=== PATIENT | female | born 1970 | race Two or more races ===

== ENCOUNTER → 2020-03-23 10:00 | Outpatient (BNV) | payer MEDICAID, OTHER, SELFPAY | PROVIDERS: PCP Nurse Practitioner; Referring Provider Nurse Practitioner; Visit Provider Internal Medicine Medical Oncology | DX: C50.911 Malignant neoplasm of unspecified site of right female breast (principal); Z79.811 Long term (current) use of aromatase inhibitors | CPT/HCPCS: 99202; 99204; 99212; 99213; 99214 ==

== ENCOUNTER → 2020-03-27 07:41 | Outpatient (REF) | payer MEDICAID, SELFPAY ==
--- NOTE | 2020-03-27 07:44 | CA_ITS ---
Transthoracic Echocardiogram Patient (Last, First, Middle): Zeynep Robles, Gender: Female Date of : 1970 Age: 49 Procedure Date: 03/27/2020 Procedure Type: Transthoracic Echocardiogram Location: OP Height: 167.64 cm Weight: 79.38 kg BSA: 1.89 m2 Heart Rate: bpm BP: 128 / 70 mmHg Cathode Washer: Referring MD: Sylvain Boyer MD Symptoms: pre chemotherapy Study Quality: Good ECG Rhythm: Sinus Conclusions: - The left ventricular systolic function is normal. The visually estimated ejection fraction is between 55-60%. Findings Left Ventricle Normal left ventricular cavity size. There is normal left ventricular wall thickness. The left ventricular systolic function is normal. The visually estimated ejection fraction is between 55-60%. The calculated ejection fraction is 58% by biplane method. There is no evidence of regional wall motion abnormalities. Diastolic function is normal for age. Left ventricular global endocardial peak longitudinal strain -14.2% (slightly diminished). Could be because of suboptimal endocardial tracking. Prior Study Comparison No prior study available for comparison. Measurements 2D Linear Measurements LVIDd: 4.65 3.9-5.3/4.2-5.9 cm LVIDd Index: 2.46 2.4-3.2/2.2-3.1 cm/m2 LVIDs: 2.82 2.0-3.6 cm 2D Systolic Function EF 4C: 54.30 >55% EF 2C: 59.50 >55% EF BiP: 58.30 >55% Mitral Valve MV Pk E: 0.46 MV PK A: 0.56 MV Decel Time: 154.00 E/A: 0.80 E'Lateral: 5.22 E'Medial: 6.53 E/E' Med: 7.00 E/E' Lat: 8.80 Diastolic Function MV Pk E: 0.46 MV Pk A: 0.56 E/A: 0.80 E'Medial: 6.53 E/E' Med: 7.00 E' Laterial: 5.22 E/E' Lat: 8.80 Updated in Other Vendor System with Status of Final Emmett Hoang MD electronically signed on 03/27/2020 9:53:08 AM with status of Final
== END ==
LOC: HO.CARD 07:41
PROVIDERS: PCP Nurse Practitioner; Visit Provider Internal Medicine Medical Oncology
DX: C50.919 Malignant neoplasm of unspecified site of unspecified female breast (principal)
CPT/HCPCS: 93308; 93356

== ENCOUNTER → 2020-07-05 12:43 | Outpatient (REF) | payer MEDICAID, SELFPAY ==
--- NOTE | 2020-07-05 12:51 | CA_ITS ---
Transthoracic Echocardiogram Patient (Last, First, Middle): Zeynep Robles, Gender: Female Date of : 1970 Age: 49 Procedure Date: 07/05/2020 Procedure Type: Transthoracic Echocardiogram Location: OP Height: 167.64 cm Weight: 74.84 kg BSA: 1.84 m2 Heart Rate: bpm BP: 116 / 56 mmHg Reducer: Referring MD: Sylvain Boyer MD Symptoms: chemotherapy , assess for chemotherapy toxicity Study Quality: Good ECG Rhythm: Sinus Conclusions: - The left ventricular systolic function is normal. The visually estimated ejection fraction is between 55-60%. Findings Left Ventricle Normal left ventricular cavity size. There is normal left ventricular wall thickness. The left ventricular systolic function is normal. The visually estimated ejection fraction is between 55-60%. There is no evidence of regional wall motion abnormalities. LV GLS -15.1%, but there is slight tracking error and hence, likely higher than this. Right Ventricle Normal right ventricular cavity size and systolic function. Prior Study Comparison No significant change compared to prior study dated: 03/27/2020. Measurements 2D Linear Measurements IVSd: 1.04 0.6-0.9/0.6-1.0 cm LVIDd: 4.89 3.9-5.3/4.2-5.9 cm LVIDd Index: 2.66 2.4-3.2/2.2-3.1 cm/m2 LVIDs: 3.08 2.0-3.6 cm LVPWd: 1.04 0.7-1.1 cm LV Mass: 230.55 67-162/88-224 g LV Mass Index: 125.30 43-95/49-115 g/m2 Updated in Other Vendor System with Status of Final Emmett Hoang MD electronically signed on 07/06/2020 12:05:05 PM with status of Final
== END ==
LOC: HO.CARD 12:43
PROVIDERS: Visit Provider Internal Medicine Medical Oncology
DX: C50.919 Malignant neoplasm of unspecified site of unspecified female breast (principal)
CPT/HCPCS: 93308; 93356

== ENCOUNTER → 2020-09-22 12:46 | Outpatient (REF) | payer MEDICAID, SELFPAY ==
--- NOTE | 2020-09-22 12:51 | CA_ITS ---
Transthoracic Echocardiogram Patient (Last, First, Middle): Zeynep Robles, Gender: Female Date of : 1970 Age: 49 Procedure Date: 09/22/2020 Procedure Type: Transthoracic Echocardiogram Location: OP Height: 167.64 cm Weight: 79.38 kg BSA: 1.89 m2 Heart Rate: bpm BP: 126 / 90 mmHg Water And Fire Technician: PADMINI Referring MD: Sylvain Boyer MD Cook Fry: Guicho Samuel MD Symptoms: Patient on Herceptin. Follow ejection fraction. Study Quality: Fair ECG Rhythm: Sinus Conclusions: - 1. Low normal LV systolic function with LVEF of 50-55% with reduced global longitudinal strain on this study Findings Left Ventricle Normal left ventricular cavity size. There is normal left ventricular wall thickness. The left ventricular systolic function is low normal. The visually estimated ejection fraction is between 50-55%. Spectral Doppler is indicative of an impaired relaxation filling pattern. E/E prime ratio is between 8 and 15 consistent with indeterminate filling pressures. Measured global longitudinal strain id -12%, lower than measured in the last study Prior Study Comparison Changes noted compared to prior study dated: 07/05/2020. LV systolic function is marginally depressed. Measurements 2D Linear Measurements IVSd: 0.85 0.6-0.9/0.6-1.0 cm LVIDd: 4.37 3.9-5.3/4.2-5.9 cm LVIDd Index: 2.31 2.4-3.2/2.2-3.1 cm/m2 LVIDs: 3.25 2.0-3.6 cm LVPWd: 1.00 0.7-1.1 cm LV Mass: 162.99 67-162/88-224 g LV Mass Index: 86.24 43-95/49-115 g/m2 2D Systolic Function EF 4C: 54.40 >55% EF 2C: 48.40 >55% EF BiP: 51.90 >55% Mitral Valve MV Pk E: 0.55 MV PK A: 0.53 MV Decel Time: 257.00 E/A: 1.00 E'Lateral: 6.20 E'Medial: 5.55 E/E' Med: 10.00 E/E' Lat: 8.90 PHT: 75.00 MVA PHT: 2.93 Decel Spencer: 2.15 Diastolic Function MV Pk E: 0.55 MV Pk A: 0.53 E/A: 1.00 E'Medial: 5.55 E/E' Med: 10.00 E' Laterial: 6.20 E/E' Lat: 8.90 Tricuspid Valve TR Pk Karson: 2.04 TR Pk Grad: 17.00 RA Press: 3.00 RVSP: 20.00 Updated in Other Vendor System with Status of Final Guicho Samuel MD electronically signed on 09/23/2020 4:00:45 PM with status of Final
== END ==
LOC: HO.CARD 12:46
PROVIDERS: Visit Provider Internal Medicine Medical Oncology
DX: C50.919 Malignant neoplasm of unspecified site of unspecified female breast (principal); Z79.899 Other long term (current) drug therapy
CPT/HCPCS: 93308

== ENCOUNTER → 2020-10-12 09:14 | Outpatient (BNVA) | payer MEDICAID, SELFPAY | PROVIDERS: PCP Nurse Practitioner; Referring Provider Nurse Practitioner; Visit Provider Internal Medicine | DX: I25.10 Atherosclerotic heart disease of native coronary artery without angina pectoris (principal); I25.2 Old myocardial infarction; I63.9 Cerebral infarction, unspecified | CPT/HCPCS: 93005; 99202 ==

== ENCOUNTER 2020-11-06 14:14 | Outpatient (REF) | payer MEDICAID, SELFPAY ==
--- NOTE | ~2020-11-06 | US_ITS ---
EXAMINATION: US EXTRACRANIAL CAROTID DUPLEX, BILATERAL CLINICAL INFORMATION: Carotid stenosis COMPARISON: None TECHNIQUE: Real-time ultrasound and Doppler techniques (integrating B-mode 2-D vascular images, Doppler spectral analysis and color-flow Doppler imaging) were utilized to interrogate the extracranial carotid arteries, the vertebral arteries and proximal subclavian arteries bilaterally. The degree of stenosis is determined by criteria similar to NASCET. FINDINGS: Right Side: 1. There is no atherosclerotic plaque seen in the bifurcation/proximal ICA region. 2. The common carotid artery PSV proximally is 95 cm/s and distally 82 cm/s. 3. The proximal internal carotid artery velocities are 79 cm/s systolic and 27 cm/s diastolic. 4. The proximal external carotid artery PSV is 95 cm/s. 5. The vertebral artery shows antegrade flow. 6. The subclavian artery waveforms are normal. Left Side: 1. There is no atherosclerotic plaque seen in the bifurcation/proximal ICA region. 2. The common carotid artery PSV proximally is 106 cm/s and distally 76 cm/s. 3. The proximal internal carotid artery velocities are 69 cm/s systolic and 19 cm/s diastolic. 4. The proximal external carotid artery PSV is 73 cm/s. 5. The vertebral artery shows antegrade flow. 6. The subclavian artery waveforms are normal. US/US carotid duplex BI IMPRESSION: 1. RIGHT: Normal exam. 2. LEFT: Normal exam.
== END 2020-11-06 14:15 | disposition home or self-care (01) ==
LOC: HO.US 14:14
PROVIDERS: Visit Provider Internal Medicine
DX: I65.23 Occlusion and stenosis of bilateral carotid arteries (principal); Z86.73 Personal history of transient ischemic attack (TIA), and cerebral infarction without residual deficits
CPT/HCPCS: 93880

== ENCOUNTER 2021-01-08 18:28 | Emergency (ER) | payer MEDICAID, SELFPAY ==
[2021-01-08 20:11] VITALS: BP 150/79; RESP 16; TEMP 36.9; O2SAT 98; BMI 28.2
--- NOTE | 2021-01-08 21:34 | ED.DENTAL ---
HPI - Dental/Oral General Chief complaint: Dental/Oral Stated complaint: mouth tooth pain Time Seen by Provider: 01/08/21 21:33 Related Data Home Medications Medication Instructions Recorded Confirmed albuterol sulfate 90 mcg/actuation 2 puff INHALATION Q6H PRN 03/20/20 01/02/21 aerosol inhaler (Ventolin HFA) cholecalciferol (vitamin D3) 25 25 mcg PO DAILY 03/20/20 01/02/21 mcg (1,000 unit) tablet epinephrine 0.3 mg/0.3 mL 0.3 mg IM NEEDED PRN 03/20/20 01/02/21 injection, auto-injector gabapentin 300 mg capsule 1 cap PO BEDTIME PRN 03/20/20 01/02/21 ipratropium bromide 18 2 puff INHALATION BID PRN 03/20/20 01/02/21 mcg/actuation aerosol inhaler loratadine 10 mg tablet 1 tab PO DAILY 03/20/20 01/02/21 metformin 500 mg tablet 1 tab PO BID 03/20/20 01/02/21 montelukast 10 mg tablet 1 tab PO BEDTIME 03/20/20 01/02/21 nitroglycerin 0.4 mg sublingual 1 tab SUBLINGUAL NEEDED 03/20/20 01/02/21 tablet omeprazole 20 mg capsule,delayed 1 cap PO DAILY 03/20/20 01/02/21 release ondansetron 8 mg disintegrating 8 mg PO Q12H 03/20/20 01/02/21 tablet dulaglutide 0.75 mg/0.5 mL 0.75 mg SUBCUT QWEEK 10/12/20 01/02/21 subcutaneous pen injector (Trulicity) Previous Rx's Medication Instructions Recorded anastrozole 1 mg tablet 1 mg PO DAILY #90 tab 01/02/21 clindamycin HCl 300 mg capsule 300 mg PO BID 10 Days #20 cap 01/08/21 oxycodone 5 mg tablet 5 mg PO Q8H PRN 3 Days #10 tab 01/08/21 Allergies Allergy/AdvReac Type Severity Reaction Status Date / Time acetaminophen Allergy Difficulty Verified 01/08/21 20:48 [From Tylenol PM] Breathing aspirin Allergy Itching Verified 01/08/21 20:48 bee pollen [bee stings] Allergy Anaphylaxis Verified 01/08/21 20:48 codeine Allergy Swelling Verified 01/08/21 20:48 diphenhydramine Allergy Difficulty Verified 01/08/21 20:48 [From Tylenol PM] Breathing latex Allergy Itching Verified 01/08/21 20:48 Penicillins Allergy Rash Verified 01/08/21 20:48 [facility] Past Medical History Medical History (Updated 01/08/21 @ 21:35 by Pj Rice NP) Asthma Breast cancer History of stroke Hyperlipidemia Myocardial infarction Nonalcoholic fatty liver disease Ovarian cyst Type 2 diabetes mellitus with diabetic polyneuropathy, with long-term current use of insulin Surgical History H/O right mastectomy History of delivery Hx of tonsillectomy Family History Family History Family/Other Breast cancer Maternal Aunt Breast cancer Maternal Grandmother Breast cancer Paternal Grandmother Breast cancer Social History Social History Alcohol intake: former Patient Tobacco Use Status: Never used Tobacco Advance Directives: No Physical Exam Vital Signs: Vital Signs: Last Vital Signs Temp 98.4 F 01/08/21 20:11 Resp 16 01/08/21 20:11 BP 150/79 H 01/08/21 20:11 Pulse Ox 98 01/08/21 20:11 Body Mass Index 28.2 Discharge Plan Discharge Clinical Impression: Dental caries Patient Disposition: Home, Self-Care Instructions: Toothache (ED) Additional Instructions: Soft foods Chewing a good-sized Take antibiotics as prescribed Return if any concerns or worsening symptoms Otherwise schedule follow-up with her dentist in the next 3-7 days Thank you Prescriptions: New clindamycin HCl 300 mg capsule 300 mg PO BID 10 Days Qty: 20 RF: 0 oxycodone 5 mg tablet 5 mg PO Q8H PRN (Reason: pain) 3 Days Qty: 10 RF: 0 No Action metformin 500 mg tablet 1 tab PO BID RF: 0 Atrovent 18 mcg/actuation Aerosol 2 puff INHALATION BID PRN (Reason: Wheezing) RF: 0 ondansetron 8 mg Tablet,Disintegrating 8 mg PO Q12H RF: 0 nitroglycerin 0.4 mg tablet, sublingual 1 tab sublingual NEEDED RF: 0 gabapentin 300 mg capsule 1 cap PO BEDTIME PRN (Reason: Pain) RF: 0 omeprazole 20 mg capsule,delayed release(DR/EC) 1 cap PO DAILY RF: 0 montelukast 10 mg tablet 1 tab PO BEDTIME RF: 0 epinephrine 0.3 mg/0.3 mL auto-injector 0.3 mg IM NEEDED PRN (Reason: Allergic Reaction) RF: 0 albuterol sulfate [Ventolin HFA] 90 mcg/actuation Hfa Aerosol Inhaler 2 puff INHALATION Q6H PRN (Reason: Wheezing) RF: 0 loratadine 10 mg tablet 1 tab PO DAILY RF: 0 cholecalciferol (vitamin D3) 25 mcg (1,000 unit) Tablet 25 mcg PO DAILY RF: 0 anastrozole 1 mg Tablet 1 mg PO DAILY Qty: 90 RF: 4 Trulicity 0.75 mg/0.5 mL pen injector 0.75 mg subcut QWEEK RF: 0 Referrals: ED Physician,Generic [Emergency Provider] - 2 days (Dentist)
[2021-01-08] MEDS: oxyCODONE HCl Immed Release 5 MG TABLET 10 MG PO (22:05)
== END 2021-01-08 22:10 | disposition home or self-care (01) ==
PROVIDERS: Emergency Provider Emergency Medicine; PCP Nurse Practitioner
DX: K02.9 Dental caries, unspecified (principal); Z79.899 Other long term (current) drug therapy
CPT/HCPCS: 99283; 99284

== ENCOUNTER 2021-01-19 09:43 | Day surgery (SDC) | payer MEDICAID, SELFPAY ==
--- NOTE | ~2021-01-19 | IR_ITS ---
EXAMINATION: IR LEFT PORT-A-CATH REMOVAL CLINICAL INFORMATION: No Port-A-Cath needed. Done with chemotherapy. COMPARISON: None. TECHNIQUE: Following explaining left Port-A-Cath removal procedure, benefits and risks, a written consent was obtained. Patient was placed supine on fluoroscopy table and the axis area around the left anterior chest wall was cleaned and drape. 1% lidocaine was injected along the palpable Port-A-Cath chamber. A small skin incision was performed and the Port-A-Cath was dissected. Subcutaneous sutures stabilizing the Port-A-Cath were dissected but none of the sutures were visualized. Blunt dissection was performed, the hardware was loosened and the the catheter was removed in its entire length. Preprocedure and postprocedure images were obtained and revealed entire removal of catheter. Complete hemostasis was achieved at the puncture site. The skin incision was sutured with absorbable sutures with sterile dressing applied postprocedure. Patient tolerated the procedure extremely well. No conscious sedation was utilized. IR/IR cvc remove tunnel w prt/legal associate FINDINGS/IMPRESSION: Successful removal of portacatheter in its entirety. Chemotherapy was done and Port-A-Cath was not needed anymore.
[2021-01-19 08:07] VITALS: BMI 28.2
[2021-01-19 09:55] VITALS: BP 143/87; PULSE 90; RESP 18; TEMP 36.1; O2SAT 97
[2021-01-19 09:57] LABS: Glucose, Whole Blood 135 mg/dL (60-115)
--- NOTE | 2021-01-19 10:18 | PC.NURSE ---
pt states she doesnot take plavix
[2021-01-19 10:36] LABS: INTERNATIONAL NORM RATIO 1.1 (0.9-1.1)
[2021-01-19 10:39] LABS: Partial Thromboplastin Time 34.7 SEC (24.1-38.0)
[2021-01-19] MEDS: Lidocaine HCl 1 % MPF 5 ML VIAL SUBCUT (12:04)
[2021-01-19 12:10] VITALS: BP 131/56; PULSE 86; RESP 16; TEMP 36.6; O2SAT 96
[2021-01-19 12:25] VITALS: BP 126/70; PULSE 89; RESP 16; O2SAT 95
[2021-01-19 12:40] VITALS: BP 125/63; PULSE 85; RESP 16; O2SAT 97
[2021-01-19 12:55] VITALS: BP 125/63; PULSE 84; RESP 16; O2SAT 98
[2021-01-19 13:07] VITALS: BP 120/68; PULSE 94; RESP 18; O2SAT 96
== END 2021-01-19 13:28 | disposition home or self-care (01) ==
PROVIDERS: Radiology Diagnostic Radiology; PCP Nurse Practitioner; Visit Provider Radiology Diagnostic Radiology
PROC: (CPT 36590; principal; 2021-01-19 10:30)
DX: Z45.2 Encounter for adjustment and management of vascular access device (principal); C50.411 Malignant neoplasm of upper-outer quadrant of right female breast; Z17.0 Estrogen receptor positive status [ER+]; Z79.811 Long term (current) use of aromatase inhibitors; E11.21 Type 2 diabetes mellitus with diabetic nephropathy; Z79.4 Long term (current) use of insulin
CPT/HCPCS: 36415; 36590; 82947; 85610; 85730; 99152; J2250; J3010

== ENCOUNTER 2024-07-23 13:23 | Emergency (ER) | payer MEDICAID, SELFPAY ==
--- NOTE | ~2024-07-23 | US_ITS ---
CLINICAL HISTORY: hx breast CA. r o abscess. palpable mass. hot ULTRASOUND RIGHT BREAST Comparison: None Findings: Targeted assessment of the palpable area of concern in the right breast was performed. Imaging was performed in and around the nipple. The nipple-areolar complex appears prominent. Multiple irregular echogenic foci are identified with increased color flow. No measurable fluid collection is identified. Impression: 1. No sonographic evidence for a retroareolar or periareolar abscess. 2. Recommend clinical correlation for a retracted versus inverted nipple. 3. Multiple irregular echogenic foci involving the nipple-areolar complex is suggestive of multiple calcifications. Further evaluation with diagnostic mammogram is recommended. BI-RADS category 0: Incomplete -need additional imaging evaluation This document has been electronically signed by: Bethany Hinton DO on 07/23/2024 17:37:46
--- NOTE | 2024-07-23 13:47 | ED.GENADULT ---
HPI - General Adult General Chief complaint: General Medical Stated complaint: swollen breast Time Seen by Provider: 07/23/24 16:17 Source: patient, RN notes reviewed and old records reviewed Mode of arrival: ambulatory History of Present Illness ED Provider: Eunice Valentine PA-C HPI narrative: 53-year-old female with a past medical history of diabetes, asthma, [place], NAFLD, HLD, Breast CA s/p simple mastectomy on Arimidex, presenting to the ED complaining of right breast swelling, palpable lump, tenderness, and warmth x3 days. Reports firm lump to nipple. States she is supposed to be on Anastrozole x5 years and have follow-up in March however has not yet followed up. Denies active drainage, fever, chills, trauma Related Data Home Medications ?Medication ?Instructions ?Recorded ?Confirmed albuterol sulfate 90 mcg/actuation 2 puff inhalation Q6H PRN Wheezing 03/20/20 01/04/22 aerosol inhaler (Ventolin HFA) cholecalciferol (vitamin D3) 25 25 mcg PO DAILY 03/20/20 01/04/22 mcg (1,000 unit) tablet epinephrine 0.3 mg/0.3 mL 0.3 mg IM NEEDED PRN Allergic 03/20/20 01/04/22 injection, auto-injector Reaction gabapentin 300 mg capsule 1 cap PO BEDTIME PRN Pain 03/20/20 01/04/22 ipratropium bromide 18 2 puff inhalation BID PRN Wheezing 03/20/20 01/04/22 mcg/actuation aerosol inhaler loratadine 10 mg tablet 1 tab PO DAILY allergies 03/20/20 01/04/22 metformin 500 mg tablet 1 tab PO BID 03/20/20 01/04/22 montelukast 10 mg tablet 1 tab PO BEDTIME allergies 03/20/20 01/04/22 nitroglycerin 0.4 mg sublingual 1 tab sublingual NEEDED angina 03/20/20 01/04/22 tablet omeprazole 20 mg capsule,delayed 1 cap PO DAILY 03/20/20 01/04/22 release ondansetron 8 mg disintegrating 8 mg PO Q12H 03/20/20 01/04/22 tablet dulaglutide 0.75 mg/0.5 mL 0.75 mg subcut QWEEK 10/12/20 01/04/22 subcutaneous pen injector (Trulicity) insulin glargine 100 unit/mL (3 10 unit subcut QPM 01/19/21 01/04/22 mL) subcutaneous pen (Lantus Solostar U-100 Insulin) pantoprazole 20 mg tablet,delayed 1 tab PO QAM 01/19/21 01/04/22 release Previous Rx's ?Medication ?Instructions ?Recorded clindamycin HCl 300 mg capsule 300 mg PO BID 10 days #20 caps 01/08/21 oxycodone 5 mg tablet 5 mg PO Q8H PRN pain 3 days #10 01/08/21 tabs anastrozole 1 mg tablet 1 mg PO DAILY #90 tabs 01/17/22 Allergies Allergy/AdvReac Type Severity Reaction Status Date / Time acetaminophen Allergy Difficulty Verified 07/23/24 13:59 [From Tylenol PM] Breathing aspirin Allergy Itching Verified 07/23/24 13:59 bee pollen [bee stings] Allergy Anaphylaxis Verified 07/23/24 13:59 codeine Allergy Swelling Verified 07/23/24 13:59 diphenhydramine Allergy Difficulty Verified 07/23/24 13:59 [From Tylenol PM] Breathing latex Allergy Itching Verified 07/23/24 13:59 Penicillins Allergy Rash Verified 07/23/24 13:59 Review of Systems Review of Systems: Yes all other systems are reviewed and are negative Constitutional: Constitutional: Reports as per [facility] Past Medical History Attestation statement: The following information was validated with the patient. Source: old records reviewed Medical History Breast cancer Type 2 diabetes mellitus with diabetic polyneuropathy, with long-term current use of insulin Asthma Myocardial infarction Nonalcoholic fatty liver disease Hyperlipidemia Ovarian cyst History of stroke Surgical History Hx of tonsillectomy History of delivery H/O right mastectomy Family History Family History Family/Other Breast cancer Maternal Aunt Breast cancer Maternal Grandmother Breast cancer Paternal Grandmother Breast cancer Social History Social History Alcohol intake: former Patient Tobacco Use Status: Never used Tobacco Smoked in Last 30 Days: No Use of substances other than those prescribed or required for medical reasons: No Advance Directives: No Advance Directives Information Provided: Yes Physical Exam ED Vital Signs: Vital Signs - 24 hr 07/23/24 13:57 07/23/24 16:20 Temperature 98.6 F 98.9 F Pulse Rate 84 83 Respiratory Rate 16 14 Blood Pressure 157/88 H 155/89 H Pulse Oximetry 98 97 Oxygen Delivery Method Room Air Room Air BMI result Body Mass Index 27.3 Const General: cooperative, healthy appearing and no acute distress Orientation/consciousness: patient oriented x3 Limitations: no limitations HENMT Head: Yes normal to inspection and Yes atraumatic Ears: hearing grossly normal bilaterally General nose exam: Normal external nose present Face and sinus: Yes normal facial exam Eyes General: appearance normal, both eyes and all related structures EOM: EOMs intact bilaterally Neck Neck: Yes normal visual inspection and Yes no meningeal signs Chest Other: Right breast s/p simple mastectomy and breast augmentation. No skin erythema or dimpling. Mild swelling appreciated with firm lump at 12 o'clock position on nipple. Mild tenderness to outer quadrants without focal fluctuance / induration. Resp Effort & Inspection: normal respiratory effort and no respiratory distress Cardio Rate: regular rate Skin Rashes: no rashes Wounds: no wounds Neuro General: patient oriented x3, tone normal and no meningeal signs Cranial nerves: Yes CN's II-XII intact bilaterally Gait exam (Neuro): Normal gait present Extrem General: Yes normal to inspection Course Course Course Narrative: This is an RME performed by Debby Pearce CNP: Additional HPI, ROS, PE not included below will be deferred to primary provider. Patient is a 53-year-old female past medical history of right breast CA; Saw [facility] in 2021- neoadjuvant TCH, simple mastectomy, on Arimidex. Presents today for evaluation of breast swelling over the past 3 days tenderness upon palpation, and palpable firm lump surrounding the nipple. Reports that she remains on anastrozole. She is most recently following with [facility] but has not seen them in a little over a year. Plan: Serum labs, placed in waiting room pending bed availability for further examination -1701-- no leukocytosis. Labs otherwise reassuring 1741--US breast RT limited Impression: 1. No sonographic evidence for a retroareolar or periareolar abscess. 2. Recommend clinical correlation for a retracted versus inverted nipple. 3. Multiple irregular echogenic foci involving the nipple-areolar complex is suggestive of multiple calcifications. Further evaluation with diagnostic mammogram is recommended. BI-RADS category 0: Incomplete -need additional imaging evaluation > ultrasound results discussed with patient with spanish interpreter/translator. Patient is supplied with copy of ultrasound results. Recommended close outpatient follow-up and needed mammogram. Discussed possible malignancy and multiple calcifications. Results discussed with patient including worrisome signs and symptoms and strict return precautions, and when to return to the emergency department. They verbalized understanding and feel safe for discharge at this time. Medical Decision Making Medical Decision Making MDM Narrative: 53-year-old female with a past medical history of diabetes, asthma, [place], NAFLD, HLD, Breast CA s/p simple mastectomy on Arimidex, presenting to the ED complaining of right breast swelling, palpable lump, tenderness, and warmth x3 days. On exam vital signs stable, NAD, nontoxic appearing, physical exam as noted above. Concern for underlying abscess vs cyst vs malignancy/breast CA recurrence. No evidence of cellulitis at this time. Plan: Labs, ultrasound Please refer to course for remaining clinical decision making, interpretation of labs/imaging results, and discussions with consultants and/or family members. Differential Diagnosis Differential Diagnoses: The differential diagnosis associated with the presentation includes As above Admission/Observation Consideration of admission/observation: Escalation of care including admission/observation considered Lab Data [facility] Lab Attestation statement: I reviewed the patient's lab results. 07/23/24 14:04 07/23/24 14:04 Labs: Lab Results 07/23/24 Range/Units 14:04 WBC 8.4 (4.8-10.8) X10*3/uL RBC 5.14 (4.20-5.50) X10*6/uL Hgb 14.4 (12.0-16.0) g/dl Hct 41.2 (37.0-47.0) % MCV 80.2 (80.0-98.0) fL MCH 28.0 (27.0-33.0) pg MCHC 35.0 (31.0-35.0) g/dl RDW 14.4 (11.0-16.0) % Plt Count 230 (160-400) X10*3/uL MPV 11.6 (9.4-12.3) fL Immature Gran % (Auto) 0.2 (0.0-0.4) % Neut % (Auto) 55.8 (45-73) % Lymph % (Auto) 38.6 (20-40) % [place] % (Auto) 4.7 (2-11) % Eos % (Auto) 0.6 (0-4) % Baso % (Auto) 0.1 (0-2) % Lymph # (Auto) 3.2 (1.2-4.9) X10*3/uL [place] # (Auto) 0.4 (0.1-1.2) X10*3/uL Eos # (Auto) 0.1 (0.0-0.4) X10*3/uL Baso # (Auto) 0.0 (0.0-0.2) X10*3/uL Abs Immat Gran (auto) 0.02 (0.00-0.03) X10*3/uL Absolute Neuts (auto) 4.7 (2.0-8.3) x10*3/uL Absolute Nucleated RBC 0.000 (0.0-0.012) X10*3/uL Nucleated RBC % (auto) 0.0 (0.0-0.2) /100WBC Sodium 142 (135-145) mmol/L Potassium 3.6 (3.3-5.1) mmol/L Chloride 106 (96-108) mmol/L Carbon Dioxide 29 (22-29) mmol/L Anion Gap 11 L (12-20) BUN 11 (9-16) mg/dL Creatinine 0.76 (0.5-1.4) mg/dL Estim Creat Clear Calc 88.4 Estimated GFR > 60 Random Glucose 122 H (60-115) mg/dL Calcium 9.8 (8.4-10.2) mg/dL Total Bilirubin 0.5 (0.0-1.0) mg/dL AST 26 (5-31) U/L ALT 35 H (0-31) U/L Alkaline Phosphatase 89 (39-117) U/L Total Protein 7.9 (6.5-8.0) g/dL Albumin 4.3 (3.5-5.0) g/dL Independent Interpretation I performed an independent interpretation of an: Ultrasound Radiology Impression Discussion of test interpretation with radiology: I have reviewed the radiologist's reading. External Record Review External record reviewed: Inpatient record, Office record, Outpatient record, Prior outpatient labs, Prior outpatient radiology, Primary care record and Outside ED record Tests considered The following testing was considered but not selected: As above Prescription Management I considered prescription management with: Pain Medication and Antibiotic Chronic Conditions Patient?s care impacted by: Cancer Social Determinants Patient?s care significantly limited by Social Determinants of Health including: Other Social Determinant of Health Discharge Plan Discharge Clinical Impression: Breast lump Prescriptions: No Action metformin 500 mg tablet 1 tab PO BID Atrovent 18 mcg/actuation Aerosol 2 puff INHALATION BID PRN (Reason: Wheezing) ondansetron 8 mg Tablet,Disintegrating 8 mg PO Q12H nitroglycerin 0.4 mg tablet, sublingual 1 tab sublingual NEEDED gabapentin 300 mg capsule 1 cap PO BEDTIME PRN (Reason: Pain) omeprazole 20 mg capsule,delayed release(DR/EC) 1 cap PO DAILY montelukast 10 mg tablet 1 tab PO BEDTIME epinephrine 0.3 mg/0.3 mL auto-injector 0.3 mg IM NEEDED PRN (Reason: Allergic Reaction) albuterol sulfate [Ventolin HFA] 90 mcg/actuation Hfa Aerosol Inhaler 2 puff INHALATION Q6H PRN (Reason: Wheezing) loratadine 10 mg tablet 1 tab PO DAILY cholecalciferol (vitamin D3) 25 mcg (1,000 unit) Tablet 25 mcg PO DAILY anastrozole 1 mg Tablet 1 mg PO DAILY Qty: 90 4RF pantoprazole 20 mg tablet,delayed release (DR/EC) 1 tab PO QAM insulin glargine [Lantus Solostar U-100 Insulin] 100 unit/mL (3 mL) insulin pen 10 unit subcut QPM clindamycin HCl 300 mg capsule 300 mg PO BID 10 Days Qty: 20 0RF oxycodone 5 mg tablet 5 mg PO Q8H PRN (Reason: pain) 3 Days Qty: 10 0RF Trulicity 0.75 mg/0.5 mL pen injector 0.75 mg subcut QWEEK Print Language: [place]
[2024-07-23 13:57] VITALS: BP 157/88; PULSE 84; RESP 16; TEMP 37; O2SAT 98; BMI 27.3
[2024-07-23 14:13] LABS: Basophils Percent Auto 0.1 % (0-2); Eosinophils Absolute Auto 0.1 X10*3/uL (0.0-0.4); Eosinophils Percent Auto 0.6 % (0-4); Hematocrit 41.2 % (37.0-47.0); Hemoglobin 14.4 g/dl (12.0-16.0); Imm Gran Abs Auto 0.02 X10*3/uL (0.00-0.03); Imm Gran Pct Auto 0.2 % (0.0-0.4); Lymphocytes Absolute Auto 3.2 X10*3/uL (1.2-4.9); Lymphocytes Percent Auto 38.6 % (20-40); MANUAL DIFF FLAG NO; Mean Corpuscular Volume 80.2 fL (80.0-98.0); Mean Platelet Volume 11.6 fL (9.4-12.3); Monocytes Absolute Auto 0.4 X10*3/uL (0.1-1.2); Monocytes Percent Auto 4.7 % (2-11); Neutrophils Absolute Auto 4.7 x10*3/uL (2.0-8.3); Neutrophils Percent Auto 55.8 % (45-73); Platelet Count 230 X10*3/uL (160-400); Red Blood Count 5.14 X10*6/uL (4.20-5.50); Red Cell Distribution Width 14.4 % (11.0-16.0); White Blood Count 8.4 X10*3/uL (4.8-10.8)
[2024-07-23 14:32] LABS: Alanine Aminotransferase 35 U/L (0-31); Albumin Level 4.3 g/dL (3.5-5.0); Alkaline Phosphatase 89 U/L (39-117); Anion Gap 11 (12-20); Aspartate Amino Transferase 26 U/L (5-31); Bilirubin Total 0.5 mg/dL (0.0-1.0); Blood Urea Nitrogen 11 mg/dL (9-16); Calcium 9.8 mg/dL (8.4-10.2); Carbon Dioxide 29 mmol/L (22-29); Chloride 106 mmol/L (96-108); Creatinine Clr Calc Pharmacy 88.4; Estimated Glomerular Filt Rate > 60; Glucose Random 122 mg/dL (60-115); Potassium 3.6 mmol/L (3.3-5.1); Sodium 142 mmol/L (135-145); Total Protein 7.9 g/dL (6.5-8.0)
--- OUTSIDE RECORDS SUMMARY | 2024-07-23 16:17 | XMS_ITS | Patient Health Record ---
Author Organization [facility] Address [address] [place] [address] Care Team Providers Care Surety Bond Agent Name Role Phone Jevon Macdonald MD Primary Care Provider KYLEE Cho Unavailable Allergies Allergen (clinical drug ingredient) Drug/Non Drug Allergy documented on EMR Reaction Allergy Type Onset Date Status aspirin aspirin (uncoded) Unknown Allergy Ac tive codeine codine (uncoded) Unknown Allergy Act mook penecilin (uncoded) Unknown Allergy Active Reason For Referral No Information Medications Medication SIG (Take, Route, Frequency, Duration) Notes Start Date End Date Status Bilateral thigh high compression stockings 20-30 mmHg as directed 04/02/2018 Active Lipitor 10 MG 1 tablet Orally Once a day Active Social History Tobacco Use: Social History Observation Description Date Details (start date - stop date) Current Smoker NA - NA Tobacco Use/Smoking Question Answer Notes Are you a current smoker How often do you smoke cigarettes? some days, bu t not every day How many cigarettes a day do you smoke? 5 or les s Are you interested in quitting? 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) Cerebral infarction due to embolism of unspecified carotid artery (I63.139) Active confirmed Problem Varicose veins of bilateral lower limbs (880695688022366 06) Varicose veins of bilateral lower extremities with other complications (I83.893) Active confirmed Plan Of Treatment Pending Test Test Name Order Date Electrocardiogram (EKG) 03/04/2018 ECHOCARDIOGRAM WITH DOPPLER AND COLOR FL OW, TRANSTHORACIC CO 03/04/2018 PHARMACOLOGIC NUCLEAR STRESS TEST WITH M YOCARDIAL PERFUSION 03/04/2018 CAROTID DUPLEX SCAN, BILATERAL 8 DOPPLER, REFLUX VENOUS 04/02/2018 Stress Test 03/12/2018 Insurance Providers Payer Name Payer Address Payer Phone Subscriber Number Group Number Insured Name Patient Relationship to Insured Coverage Start Date Coverage End Date [employer] Medicaid [address] [facility] [place] [id number] [id number] Zeynep Martini Self - patient is the insured Medical (General) History Surgical History Surgery Date(Month/Year) four c section
--- OUTSIDE RECORDS SUMMARY | 2024-07-23 16:17 | XMS_ITS | Clinical Summary ---
Author Organization [facility] Address [address] [place] [address] Care Team Providers Care Competitive Intelligence Manager Name Role Phone Charity Mancera VINNY Primary Care Provider [phone] Source Comments PLEASE NOTE, if this patient is a minor, it may be UNLAWFUL to discuss sensitive information that is contained in these records (such as FAMILY PLANNING, MENTAL HEALTH or SUBSTANCE ABUSE) with the minor patient's parent or other person without the patient's specific authorization.[facility] Allergies Active Allergy Reactions Criticality Noted Date Comments Aspirin 07/09/2021 Codeine 07/09/2021 Stgqumvstira-Rmz-Xrrqcqqvie hen 07/09/2021 Tylenol PM Diphenhydramine-Acetaminoph en 08/15/2022 Penicillins 07/09/2021 Pollen Extracts 03/10/2023 Environmental allergies to pollen, mold, some rugs, some mold, dust Propofol 07/09/2021 Pt reports reaction (irregular heart rhythm) after getting general anesthesia Medications blood pressure monitorIndications :Cerebrovascular accident (CVA), unspecified mechanism ([facility]) Lifetime need 1 Kit 07/10/19 22 Active nitroglycerin (NITROSTAT) 0.4 mg SL tabletIndications: acute episode of anginal pain,acute myocardial infarction Place 0.4 mg under the tongue every 5 (five) minutes as needed for chest pain (Do not exceed 3 doses in 15 minutes) Indications: acute attack of angina, a heart attack Active cyanocobalamin (VITAMIN B-12) 500 mcg tabletIndications: Prescription refill Take 1 Tablet by mouth once daily 90 Tablet 08/28/19 23 Active cholecalciferol (VITAMIN D-3) 50 mcg (2,000 unit) capsule Take 1 Capsule by mouth every morning 30 Capsule 10/21/19 23 Active lisinopriL 5 mg tablet Take 1 Tablet by mouth once daily 90 Tablet 1 11/09/19 23 Active MISCELLANEOUS MEDICAL SUPPLY MISC by miscellaneous route once daily Diabetes shoes, 1 pair I certify that all of the following statements are true: 1. This patient has diabetes mellitus Yes 2. This patient has one or more of the following conditions. A. History of partial or complete amputation of the foot Yes B. History of previous foot ulceration No C. History of pre-ulcerative callus No D. Peripheral neuropathy with evidence of callus formation No E. Foot deformity Yes F. Poor ciruculation Yes 3. I am treating this patient under a comprehensive plan of care for his/her diabetes Yes 4. This patient needs special shoes (depth or custom molded shoes) because of his/her diabetes No Last date seen for diabetic exam:01/07/2023 Provider:Randall Arias MD NPI#:[id number] 1 Each 1 01/15/20 23 Active VASCEPA 1 gram cap Authorized by: VIOLA FELIPE DAPHNIE 12/11/19 23 Active ezetimibe (ZETIA) 10 mg tablet Authorized by: VIOLA FELIPE DAPHNIE 12/11/19 23 Active alcohol swabs (ALCOHOL PADS) USE DIRECTED 4 (FOUR) TIMES DAILY 100 Each 06/09/19 24 Active lancets 33 gauge USE TO TEST FINGER STICK BLOOD SUGAR 3 (THREE) TIMES A DAY AND NEEDED 100 Each 06/27/19 24 Active anastrozole (ARIMIDEX) 1 mg tabletIndications: H/O right mastectomy Take 1 Tablet by mouth once daily for 90 days 30 Tablet 2 07/09/19 24 Active multivitamin with folic acid (DAILY-SHERRY, WITH FOLIC ACID,) 400 mcg tab Take 1 Tablet by mouth once daily 90 Tablet 1 07/24/19 24 Active azelastine (ASTELIN) 137 mcg (0.1 %) nasal spray SPRAY TWICE IN EACH NOSTRIL two (2) times a day 08/06/19 24 Active compress.stocking, knee,reg,medIndica tions:Varicose veins of calf Please dispense 1 pairs of compression stockings 15 mmhg 2 Each 1 12/04/19 24 Active comp.stocking,thig h,long,largeIndica tions:Varicose veins of calf Please dispense 1 pairs of compression stockings 15 mmhg LIFETIME 3 Each 1 12/24/19 24 Active omega-3 acid ethyl esters (LOVAZA) 1 gram capsule Take 2 Capsules by mouth 2 (two) times daily 360 Capsule 3 01/14/20 24 Active atorvastatin (LIPITOR) 80 mg tabletIndications: Hyperlipidemia, unspecified hyperlipidemia type TAKE 1 TABLET BY MOUTH EVERY NIGHT AT BEDTIME 90 Tablet 1 02/19/20 24 Active metFORMIN XR (GLUCOPHAGE-XR) 500 mg 24 hr tabletIndications: Type 2 diabetes mellitus without complication, without long-term current use of insulin ([facility]) TAKE 1 TABLET BY MOUTH ONCE DAILY WITH BREAKFAST 90 Tablet 2 02/19/20 24 Active EPINEPHrine (EPIPEN) 0.3 mg/0.3 mL pen injectorIndication s:Allergy, subsequent encounter Inject 0.3 mL into the muscle as needed for anaphylaxis 2 Each 3 03/10/20 24 Active calcium carbonate (TUMS EX) 300 mg (750 mg) chewable tablet Place 2 Tablets into mouth, chew and swallow once daily as needed for heartburn 03/10/20 24 Active montelukast (SINGULAIR) 10 mg tablet Take 10 mg by mouth nightly at bedtime 10/22/19 23 Active lidocaine (LIDODERM) 5 % patch APPLY 1 PATCH TOPICALLY ONCE DAILY DIRECTED. remove patch after 12 hours 30 Patch 1 03/31/20 24 Active gabapentin (NEURONTIN) 400 mg capsule TAKE 1 CAPSULE BY MOUTH 3 (THREE) TIMES A DAY 90 Capsule 3 04/09/20 24 Active pantoprazole (PROTONIX) 20 mg EC tablet TAKE 1 TABLET BY MOUTH ONCE DAILY IN THE MORNING. TAKE ON EMPTY STOMACH 30 Tablet 5 04/20/19 25 Active loratadine (CLARITIN) 10 mg tablet TAKE 1 TABLET BY MOUTH EVERY MORNING 30 Tablet 5 04/20/19 25 Active blood sugar diagnostic (FREESTYLE LITE STRIPS) strips USE TO TEST FINGER STICK BLOOD SUGAR 3 (THREE) TIMES A DAY 100 Each 04/30/19 25 Active fluticasone (FLONASE) 50 mcg/actuation nasal spray SPRAY TWICE IN EACH NOSTRIL ONCE DAILY 16 g 2 05/18/19 25 Active CEROVITE SENIOR 0.4 mg-300 mcg- 250 mcg tabIndications:Vit cai deficiency, unspecified TAKE 1 TABLET BY MOUTH ONCE DAILY WITH BREAKFAST 90 Tablet 3 06/01/19 25 Active TRULICITY 1.5 mg/0.5 mL pen injectorIndication s:Type 2 diabetes mellitus without complication, without long-term current use of insulin ([facility]) INJECT THE CONTENT OF 1 syringe SUBCUTANEOUSLY EACH WEEK 2 mL 2 06/10/19 25 Active Active Problems Problem Noted Date Diagnosed Date 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 Sees Dr. Acevedo. Last seen 11/2022 Diagnosed in January 2019 in [place] Received chemotherapy in [place]. Currently on oral medication Diagnosed in January 2019 in [place] Received chemotherapy in [place]. Currently on oral medication H/O right mastectomy 07/09/2021 Status post right breast reconstruction 07/10/19 Hyperlipidemia 07/09/2021 Cerebrovascular accident (CVA) ([facility]) 022 Overview (12/04/2023): Reports x 2, first in 2018, she needed eye surgery due to hemmorhagic stroke it appears, then also in 2019 she had another on which occurred during the breast surgery. History of myocardial infarction 09/20/2020 Overview (11/04/2022): 2013, 2019 per prior medical record Encounters Date Type Department Care Team Description 05/24/2024 Interim Notes [id number] [place] [address] Margy José RN from Last 3 Months Immunizations Immunization Administration Dates Next Due Flu, Preservative Free 01/21/2023,2021,01/24/2021,03/15 Hep B,adult,adjuvanted (HEPLISAV) 12/09/2022, INFLUENZA, SEASONAL, INJECTABLE 01/12/2021 Influenza (FLUBLOK),recombinant,injectable,prese rvative Free 03/10/2024 CARISSA COVID-19 VACCINE 06/28/2020 PFIZER COVID VACCINE, PURPLE CAP, 12+ 05/02/2021 PNEUMOCOCCAL CONJUGATE PCV 2 0 (Prevnar) 11/04/2022 PNEUMOCOCCAL POLYSACCHARIDE PPV23 10/03/2011 Pfizer COVID-19 (Comirnaty), Mrna, Lnp-s, Pf, Rodger-sucrose, 30 Mcg/0.3 Ml, 12yr+ 01/21/2023 TDAP 03/27/2022,09/10/2007 Td(adult),2 Lf tetanus toxoid,preservative free 12/13/1998 ZOSTER VACCINE, RECOMBINANT (SHINGRIX) ,10/03/2020 Social History Tobacco Use Types Packs/Day Years Used Date Smoking Tobacco: Former Cigarettes Smokeless Tobacco: Never Comments:when younger Alcohol Use Standard Drinks/Week Comments Not Currently 0 (1 standard drink = 0.6 oz pur e alcohol) Social Connections Answer Date Recorded Connectedness 1 03/10/2024 Financial Resource Strain Answer Date R ecorded Financial Resource Strain 1 2023 Stress Answer Date Recorded Stress 1 03/10/2024 Physical Activity Answer Date Recorded Physical Activity 0 11/01/2022 Food Insecurity Answer Date Recorded Food 1 03/10/2024 Transportation Needs Answer Date Record ed Transportation 1 03/10/2024 Housing Stability Answer Date Recorded Housing 1 03/10/2024 Safety and Environment Answer Date Austen rded Safety 0 11/01/2022 Utilities Answer Date Recorded Utilities 1 03/10/2024 Employment Answer Date Recorded Stress 0 11/01/2022 Comments No Sex and Gender Information Value Date Recorded Sex Assigned at Female 07/09/2021 8:00 AM PDT Legal Sex Female 10:56 AM PST Gender Identity Female 07/09/2021 8:00 AM PDT Sexual Orientation Straight 07/09/2021 8: 00 AM PDT Occupation Industry Job Start Date Job End Date not working Not on file Not on file Not on file Last Filed Vital Signs Vital Sign Reading Time Taken Comments Blood Pressure 159/100 04/02/2024 1:24 PM EST Pulse 96 04/02/2024 1:24 PM EST Temperature 36.7 ??C (98 ??F) 03/15/2024 3:07 PM EST Respiratory Rate 16 04/02/2024 1:24 PM EST Oxygen Saturation 100% 04/02/2024 1:24 PM EST Inhaled Oxygen Concentration - - Weight 72.1 kg (159 lb) 04/02/2024 1:24 PM EST Height 165.1 cm (5' 5 ) 04/02/2024 1:24 PM EST Body Mass Index 26.46 04/02/2024 1:24 PM EST Plan of Treatment Upcoming Encounters Date Type Department Care Team (Late st Contact Info) Description 09/13/2024 3:40 PM EDT Office Visit [facility] [address] [place] [address] Charity Mancera NP [address] [place] [address] Health Maintenance Due Date Last Done Comments Anxiety Screening [address] Colonography 2014 Colonoscopy 2014 Fecal DNA 2014 Flexible Sigmoidoscopy 2014 Retinopathy Screening 11/13/2022 11/13/2021 Breast Cancer Screening (Mammogram) 09/18/2023 09/17/2022, 09/13/2021, 09/13/2021, Additional history exists [id number] ( season) 2023 01/21/2023, 05/02/2021, 06/28/2020 Colorectal Cancer Screening 01/22/2024 FIT/gFOBT 01/22/2024 01/21/2023 Dental Prophy 01/30/2024 07/29/2023, 01/27/2023 Alcohol and Drug Screen 04/14/2024 03/10/20 24, 05/09/2023, 11/04/2022, Additional history exists Depression Annual Screen 04/14/2024 03/10/2024 Diabetes HbA1c 05/13/2024 11/11/2023, 02/13, 03/10/2023, Additional history exists Dental BW 07/30/2024 07/29/2023, 01/27/2023 Dental Examination 07/30/2024 07/29/2023, 01/27/2023 Dental Perio Charting 07/30/2024 07/29/2023 Diabetes Foot Exam 10/02/2024 10/03/2023, 0 01/07/2023, 11/04/2022 Urine Albumin Creatinine Rat io Screening 11/10/2024 11/11/2023, 11/03/2022, 07/10/2021 Annual Preventive Care Visit 03/10/2025, 03/10/2023, 11/04/2022, Additional history exists Lipid Screening 03/10/2025 03/10/2024, 02/13, 03/10/2023, Additional history exists Serum Creatinine 03/10/2025 03/10/2024, , 11/03/2022, Additional history exists Tobacco Screening 03/10/2025 03/10/2024, 07/09/2021 Hypertension Screening (#1) 04/02/2025 Pap Smear 04/02/2027 04/02/2024, 12/14 (Managed by Outside Provider) Dental FMX/Pano 01/30/2028 01/27/2023 Cervical Cancer Screening 04/02/2029 Pap + HPV 04/02/2029 04/02/2024 Imm-DTaP/Tdap/Td (3 - Td or Tdap) 03/27/2032 03/27/2022, 09/10/2007, 12/13/1998 Imm-Zoster, Recombinant Completed 07/09/2021, 10/03 HIV Screening Completed 07/10/2021, 07/10/2021 Hepatitis C Screening Completed 07/10/2021 Imm-Pneumococcal Completed 11/04/2022, 10/03/2011 Imm-Hepatitis B Completed 12/09/2022, 11/04/2022 Bone Density Screening Completed , 12/19/2022, 12/19/2022 Imm-Influenza Completed 03/10/2024, 01/12, 03/27/2022, Additional history exists Cervical Ablation/Cold-Knife Conization Discontinued Cervical Cryotherapy Discontinued Colposcopy Discontinued Endometrial Biopsy Discontinued Excision/Leep Discontinued HPV Genotyping Discontinued Vaginal Pap Discontinued Vulvoscopy Discontinued Procedures Procedure Name Priority Date/Time Associated Diagnosis Comments THIN PREP IMAGE PAP + HPV RNA E6/E7 W/RFLX HPV 16, 18/45 Routine 04/02/2024 1:57 PM EST Screening for HPV (human papillomavirus) COMPREHENSIVE METABOLIC PANEL Routine 03/10/2024 11:21 AM EST Routine general medical examination at a [facility] care facility LIPID PANEL Routine 03/10/2024 11:21 AM EST Routine [facility] MICROALBUMIN/CREATININE RATIO, URINE, RANDOM Routine 11/11/2023 10:11 AM EDT Type 2 diabetes mellitus without complication, without long-term current use of insulin ([facility]) HGBA1C W/MPG Routine 11/11/2023 10:11 AM EDT Type 2 diabetes mellitus without complication, without long-term current use of insulin ([facility]) COMP PERIODONTAL EVALUATION - NEW/EST PATIENT Routine 07/29/2023 10:20 AM EDT Caries Encounter for dental examination BITEWINGS - FOUR RADIOGRAPHIC IMAGES Routine 07/29/2023 10:20 AM EDT Caries Encounter for dental examination PROPHYLAXIS - ADULT Routine 07/29/2023 1 0:20 AM EDT Caries Encounter for dental examination PERIODIC ORAL EVALUATION ESTABLISHED PATIENT Routine 07/29/2023 10:20 AM EDT Caries Encounter for dental examination INTRAORAL - COMP SERIES OF RADIOGRAPHIC IMAGES Routine 01/27/2023 11:00 AM EDT Encounter for dental examination FECAL GLOBIN BY IMMUNOCHEMISTRY (FIT) Routine 01/21/2023 8:00 PM EDT Colon cancer screening HISTORIC DEXA SCAN 12/19/2022 3: 00 AM EDT HISTORIC MAMMOGRAM 09/17/2022 3: 00 AM EDT REFERRAL TO OPHTHALMOLOGY 11/13/2021 3:00 AM EDT HIV 1/2 AG & AB W/RFLX (4TH GEN) Routine 07/10/2021 10:04 AM EDT Screening for viral disease HEPATITIS C AB W/RFLX HCV RNA, QT, RT PCR Routine 07/10/2021 10:04 AM EDT Screening for viral disease from Last 3 Months or Most Recently Relevant to Health Maintenance Results * THIN PREP IMAGE PAP + HPV RNA E6/E7 W/RFLX HPV 16, 18/45 (04/02/2024 1:57 PM EST) HPV MRNA E6/E7 Not Detected Not Detected [facility] Comment: Methodology: Hourly Associate-Mediated Amplification This assay detects E6/E7 viral messenger RNA (mRNA) from 14 high-risk HPV types (16,18,31,33,35,39,45,51,52,56,58,59,66,68). Cervical sources are required for HPV testing. If a vaginal source from a patient who has had a total hysterectomy with removal of cervix was submitted, please contact the testing laboratory for alternative testing options. For additional information, please refer to http://education.Adventi/faq/URB818a1 (This link if provided for information/ educational purposes only.) CLINICAL INFORMATION See Note [facility] Comment:Postmenopausal LMP See Note [facility] Comment:NONE GIVEN PREV. PAP See Note [facility] Comment:NONE GIVEN PREV. BX See Note [facility] Comment:NONE GIVEN SOURCE See Note [facility] Comment:Cervix STATEMENT OF ADEQUACY See Note [facility] Comment:SATISFACTORY FOR XIAO LUATION INTERPRETATION/RESU LT See Note [facility] Comment: Cytology Results: Negative for intraepithelial lesion or malignancy. Atrophic pattern; predominantly parabasal cells COMMENT See Note [facility] Comment: This Pap test has been evaluated with computer assisted technology. SENIOR PRIVATE CLIENT ADVISOR See Note [facility] Comment: RK, CT(ASCP) CT screening location: [address] ??[id number] COMMENT [facility] Swab Cervix uteri structure / Unknown 04/02/2024 1:57 PM EST 04/06/2024 2:48 AM EST Narrative [facility] - 04/09/2024 1:30 PM EST EXPLANATORY NOTE: The Pap is a screening test for cervical cancer. It is not a diagnostic test and is subject to false negative and false positive results. It is most reliable when a satisfactory sample, regularly obtained, is submitted with relevant clinical findings and history, and when the Pap result is evaluated along with historic and current clinical information. us Shiv Dennis MD LAB - NO BLOOD DRAW Final Resul t [facility] [address] [address], [facility] [address] [place] [phone] * (ABNORMAL) LIPID PANEL (03/10/2024 11:21 AM EST) CHOLESTEROL, TOTAL 302(H) <200 mg/dL [facility] HDL CHOLESTEROL 37(L) > OR = 50 mg/dL [facility] TRIGLYCERIDES 454(H) <150 mg/dL [facility] Comment: If a non-fasting specimen was collected, consider repeat triglyceride testing on a fasting specimen if clinically indicated. Yemi et al. J. of Clin. Lipidol. 2015;9:129-169. LDL-CHOLESTEROL See Note [facility] [email or web address] Comment: LDL cholesterol not calculated. Triglyceride levels greater than 400 mg/dL invalidate calculated LDL results. Reference range: <100 Desirable range <100 mg/dL for primary prevention; ?? <70 mg/dL for patients with CHD or diabetic patients with > or = 2 CHD risk factors. LDL-C is now calculated using the Yordan calculation, which is a validated novel method providing better accuracy than the Friedewald equation in the estimation of LDL-C. Oleksandr NASCIMENTO et al. WEN. 2013;310(19): 8042-4150 (http://education.Agora Mobile/faq/MQI676) CHOL/HDLC RATIO 8.2(H) <5.0 (calc) [facility] NON-HDL CHOLESTEROL 265(H) <130 mg/dL (calc) [facility] Comment: Non-HDL level > or = 220 is very high and may indicate genetic familial hypercholesterolemia (FH). Clinical assessment and measurement of blood lipid levels should be considered for all first-degree relatives of patients with an FH diagnosis. For patients with diabetes plus 1 major ASCVD risk factor, treating to a non-HDL-C goal of <100 mg/dL (LDL-C of <70 mg/dL) is considered a therapeutic option. Blood Blood / Unknown 03/10/2024 1 1:21 AM EST 03/10/2024 11:22 AM EST Narrative [facility] - 03/11/2024 4:27 AM EST FASTING:NO Charity Mancera NP LAB - BLOOD DRAW Final Resul t [facility] [address] [place] [phone], [facility] [address] [address] * (ABNORMAL) COMPREHENSIVE METABOLIC PANEL (03/10/2024 11:21 AM EST) GLUCOSE 179(H) 65 - 139 mg/dL [facility] Comment: ?Non-fasting reference interval UREA NITROGEN (BUN) 16 7 - 25 mg/dL [facility] CREATININE (blood) 0.81 0.50 - 1.03 mg/dL [facility] EGFR 86 > OR = 60 mL/min/1. 73m2 [facility] BUN/CREATININE RATIO SEE NOTE: [facility] Comment: ?? Not Reported: BUN and Creatinine are within ?? reference range. ? SODIUM 140 135 - 146 mmol/L [facility] POTASSIUM 4.2 3.5 - 5.3 mmol/L [facility] CHLORIDE 104 98 - 110 mmol/L [facility] CARBON DIOXIDE 26 20 - 32 mmol/L [facility] CALCIUM 9.8 8.6 - 10.4 mg/dL [facility] PROTEIN, TOTAL 7.3 6.1 - 8.1 g/dL [facility] ALBUMIN 4.5 3.6 - 5.1 g/dL [facility] GLOBULIN 2.8 1.9 - 3.7 g/dL (calc) [facility] ALBUMIN/GLOBULI N RATIO 1.6 1.0 - 2.5 (calc) [facility] BILIRUBIN, TOTAL 0.4 0.2 - 1.2 mg/dL [facility] ALKALINE PHOSPHATASE 79 37 - 153 U/L [facility] AST 18 10 - 35 U/L [facility] ALT 30(H) 6 - 29 U/L [facility] Blood Blood / Unknown 03/10/2024 1 1:21 AM EST 03/10/2024 11:22 AM EST Narrative [facility] - 03/11/2024 4:27 AM EST FASTING:NO Charity Mancera NP LAB - BLOOD DRAW Final Resul t [facility] [address] [place] [phone], [facility] [address] [place] [phone] * (ABNORMAL) HGBA1C W/MPG (11/11/2023 10:11 AM EDT) HEMOGLOBIN A1C 6.8(H) <5.7 % of total Hgb [facility] Comment: For someone without known diabetes, a hemoglobin A1c value of 6.5% or greater indicates that they may have diabetes and this should be confirmed with a follow-up test. For someone with known diabetes, a value <7% indicates that their diabetes is well controlled and a value greater than or equal to 7% indicates suboptimal control. A1c targets should be individualized based on duration of diabetes, age, comorbid conditions, and other considerations. Currently, no consensus exists regarding use of hemoglobin A1c for diagnosis of diabetes for children. ?? MEAN PLASMA GLUCOSE 165 mg/dL (calc) [facility] Blood Blood / Unknown 11/11/2023 1 0:11 AM EDT 11/11/2023 10:11 AM EDT Narrative [facility] - 11/12/2023 3:36 PM EDT FASTING:NO Christopher Swift PharmD LAB - BLOOD D RAW Edited Result - Final Performing Organization Address [facility] Co de Phone Number [facility] [employer] [address] [address], [facility] [address] [address] * MICROALBUMIN/CREATININE RATIO, URINE, RANDOM (11/11/2023 10:11 AM EDT) CREATININE, RANDOM URINE 57 20 - 275 mg/dL [facility] MICROALBUMIN 1.5 mg/dL [facility] [employer] [facility] Comment: Reference Range Not established MICROALBUMIN/CREA TININE RATIO, RANDOM URINE 26 <30 mg/g creat [facility] Comment: The ADA defines abnormalities in albumin excretion as follows: Albuminuria Category ?Result (mg/g creatinine) Normal to Mildly increased ?? <30 Moderately increased ? 30-299 Severely increased ? > OR = 300 The ADA recommends that at least two of three specimens collected within a 3-6 month period be abnormal before considering a patient to be within a diagnostic category. Urine Urine specimen / Unknown 11/11/2023 10:11 AM EDT 11/11/2023 10:11 AM EDT Narrative [facility] - 11/12/2023 3:36 PM EDT FASTING:NO Christopher Swift PharmD LAB - NO BLOO D DRAW Final Result Performing Organization Address [facility] Co de Phone Number [facility] [address] [address], [facility] [address] [address] * FECAL GLOBIN BY IMMUNOCHEMISTRY (FIT) (01/21/2023 8:00 PM EDT) FECAL GLOBIN BY IMMUNOCHEMISTRY See Note [facility] Comment: ??FECAL GLOBIN BY IMMUNOCHEMISTRY ?Micro Number: ?[id number] ??Test Status: ? Final ??Specimen Source: ?? Insure (tm) fobt test card ??Specimen Quality: ??Adequate ??Fecal Globin: ?Not Detected Stool Stool specimen / Unknown 01/21/2023 8:00 PM EDT 01/23/2023 4:16 AM EDT Result [facility] Corin YIN LAB - NO BLOOD DRAW Final Resul t [facility] [address] [address], [facility] [address] [phone] * HISTORIC DEXA SCAN (12/19/2022 3:00 AM EDT) 12/19/2022 3:00 AM EDT Result [facility] Negin MENDOZA-C IM DXA Edited Resul t - Final * HISTORIC MAMMOGRAM (09/17/2022 3:00 AM EDT) 09/17/2022 3:00 AM EDT Result [facility] Negin DHALIWALP-C IMG MAMMO Final Result * REFERRAL TO OPHTHALMOLOGY (11/13/2021 3:00 AM EDT) 11/13/2021 3:00 AM EDT Result [facility] Negin Bell PECAN MALLOW DIPPER-C REFERRAL Final Result * HEPATITIS C AB W/RFLX HCV RNA, QT, RT PCR (07/10/2021 10:04 AM EDT) HEPATITIS C ANTIBODY NON-REACT KIARA NON-REACT KIARA [facility] SIGNAL TO CUT-OFF 0.01 <1.00 [facility] Comment: HCV antibody was non-reactive. There is no laboratory evidence of HCV infection. In most cases, no further action is required. However, if recent HCV exposure is suspected, a test for HCV RNA (test code 68817) is suggested. For additional information please refer to http://[employer].Adventi/faq/CED12l8 (This link is being provided for informational/ educational purposes only.) Blood Blood / Unknown 07/10/2021 1 0:04 AM EDT 07/10/2021 10:05 AM EDT Narrative [facility] - 07/10/2021 9:47 PM EDT FASTING:YES Negin DHALIWALP-C LAB - BLOOD DRAW Final Resul t [facility] [address] [place] [phone], [facility] [address] [address] * HIV 1/2 AG & AB W/RFLX (4TH GEN) (07/10/2021 10:04 AM EDT) HIV AG/AB, 4TH GEN NON-REAC TIVE NON-REAC TIVE [facility] Comment: HIV-1 antigen and HIV-1/HIV-2 antibodies were not detected. There is no laboratory evidence of HIV infection. PLEASE NOTE: This information has been disclosed to you from records whose confidentiality may be protected by state law. ??If your state requires such protection, then the state law prohibits you from making any further disclosure of the information without the specific written consent of the person to whom it pertains, or as otherwise permitted by law. A general authorization for the release of medical or other information is NOT sufficient for this purpose. ?? For additional information please refer to http://[employer]/faq/CYN154 (This link is being provided for informational/ educational purposes only.) The performance of this assay has not been clinically validated in patients less than 2 years old. Blood Blood / Unknown 07/10/2021 1 0:04 AM EDT 07/10/2021 10:05 AM EDT Narrative [facility] - 07/10/2021 9:47 PM EDT FASTING:YES Negin Ray [facility] - BLOOD DRAW Final Resul t [facility] [address] [facility] [address] [place] [address], [facility] [address] [address] from Last 3 Months or Most Recently Relevant to Health Maintenance Insurance [place] MED[place] [address] [employer] Care Teams Competitive Intelligence Manager Relationship Specialty Start Date End Date Charity Mancera NP [address] [place] [address] PCP - General Internal Medicine 05/09/23
--- OUTSIDE RECORDS SUMMARY | 2024-07-23 16:17 | XMS_ITS | Encounter Summary ---
Author Organization [facility] Address [id number] [place] [id number] Care Team Providers Care Gold Stamper Name Role Phone Tatiana Taylor Primary Care Provider [phone] Encounter Details Date Type Department Care Team (Late st Contact Info) Description 07/22/2024 Telephone [facility] Hematology Oncology [address] [place] [address] Yeni Acevedo MD [address] [place] [address] Social History Tobacco Use Types Packs/Day Years Used Date Smoking Tobacco: Former Smokeless Tobacco: Never Alcohol Use Standard Drinks/Week Comments Not Currently 0 (1 standard drink = 0.6 oz pur e alcohol) Comments Unknown Sex and Gender Information Value Date Recorded Sex Assigned at Not on file Legal Sex Female 1:35 PM EST Gender Identity Not on file Sexual Orientation Not on file documented as of this encounter Progress Notes * Tristin Brooke MA - 07/23/2024 1:22 PM EDT Reached out to pt, it has been confirmed that pt has moved and will be receiving care elsewhere. * Mrailynn Mullen - 07/22/2024 4:01 PM EDT Margy nurse animal care taker from [facility] calling to report she spoke with patient to giveappt info for 07/28 and patient states to her that she will not be coming as she has moved and wantscare closer to her. Asked to confirm this with patient and verify and if she needs help with sending records elsewhere we can do so. Please call patient at [phone] documented in this encounter Plan of Treatment Upcoming Encounters Date Type Department Care Team (Late st Contact Info) Description 07/28/2024 11:00 AM EDT Office Visit [facility] Hematology Oncology [address] [place] [address] Yeni Acevedo MD [address] [place] [address] documented as of this encounter Visit Diagnoses Not on filedocumented in this encounter Care Teams Gold Stamper Relationship Specialty Start Date End Date Tatiana Taylor PA [address] [place] [address] PCP - General 12/10/22 documented as of this encounter
--- OUTSIDE RECORDS SUMMARY | 2024-07-23 16:17 | XMS_ITS | Clinical Summary ---
Author Organization [facility] Address [address] [place] [phone] Phone Care Team Providers Care Paper Guillotine Operator Name Role Phone Tatiana Taylor Primary Care Provider [phone] Allergies Active Allergy Reactions Criticality Noted Date Comments Aspirin 07/09/2021 Codeine 07/09/2021 Other 08/15/2022 Diphenhydramine-apap (sleep) Penicillins 07/09/2021 Propofol 07/09/2021 Pt reports reaction (irregular heart rhythm) after getting general anesthesia Medications anastrozole (ARIMIDEX) 1 mg Take 1 tablet (1 mg total) by mouth 1 (one) time each day 4 Active atorvastatin (LIPITOR) 80 mg tablet Take 1 tablet (80 mg total) by mouth. 3 Active clopidogreL (PLAVIX) 75 mg tablet 3 Active cyanocobalamin (VITAMIN B-12) 500 mcg tablet Take 1 tablet (500 mcg total) by mouth 1 (one) time each day. 3 Active dulaglutide (Trulicity) 1.5 mg/0.5 mL pen injector injection Inject 0.5 mL (1.5 mg total) under the skin every 7 (seven) days. DIRECTED 3 Active fluticasone propionate (FLONASE) 50 mcg/actuation nasal spray Administer 2 sprays into each nostril 1 (one) time each day. 3 Active gabapentin (NEURONTIN) 300 mg capsule 3 Active lidocaine (LIDODERM) 5 % patch Apply 1 patch topically 1 (one) time each day. for 12 hours a day. Remove for 12 hours 3 Active lisinopriL (PRINIVIL,ZESTR IL) 5 mg tablet Take 1 tablet (5 mg total) by mouth 1 (one) time each day. 3 Active loratadine (CLARITIN) 10 mg tablet Take 1 tablet (10 mg total) by mouth 1 (one) time each day in the morning. 3 Active metFORMIN XR (GLUCOPHAGE-XR) 500 mg 24 hr tablet Take 1 tablet (500 mg total) by mouth 1 (one) time each day after breakfast. 3 Active montelukast (SINGULAIR) 10 mg tablet 3 Active nitroglycerin (NITRODUR) 0.4 mg/hr Place 1 patch on the skin. Active omega-3 acid ethyl esters (LOVAZA) 1 gram capsule 3 Active pantoprazole (PROTONIX) 20 mg EC tablet Take 1 tablet (20 mg total) by mouth 1 (one) time each day before breakfast. 3 Active Encounters Date Type Department Care Team Description 07/22/2024 Telephone [facility] Hematology Oncology [address] [place] [phone] Yeni Acevedo MD from Last 3 Months Immunizations Name Administration Dates Next Due [facility] SARS-CoV-2 COVID-19, mRNA, LNP-S, preservative free 01/21/2023 Social History Tobacco Use Types Packs/Day Years Used Date Smoking Tobacco: Former Smokeless Tobacco: Never Alcohol Use Standard Drinks/Week Comments Not Currently 0 (1 standard drink = 0.6 oz pur e alcohol) Comments Unknown Sex and Gender Information Value Date Recorded Sex Assigned at Not on file Legal Sex Female 1:35 PM EST Gender Identity Not on file Sexual Orientation Not on file Obstetrics History Last Filed Vital Signs Vital Sign Reading Time Taken Comments Blood Pressure 112/75 07/24/2023 9:38 AM EDT Pulse 79 07/24/2023 9:38 AM EDT Temperature - - Respiratory Rate - - Oxygen Saturation - - Inhaled Oxygen Concentration - - Weight 73 kg (161 lb) 07/24/2023 9:38 AM EDT Height 167.6 cm (5' 6 ) 02/05/2023 10:17 AM EDT Body Mass Index 25.99 02/05/2023 10:17 AM EDT Plan of Treatment Upcoming Encounters Date Type Department Care Team (Late st Contact Info) Description 07/28/2024 11:00 AM EDT Office Visit [facility] Hematology Oncology [address] [place] [address] Yeni Acevedo MD [address] [place] [address] Health Maintenance Due Date Last Done Comments Breast Cancer Screening 1969 DTaP,Tdap,and Td Vaccines (1 - Tdap) 1988 Hepatitis B Vaccines (1 of 3 - 19+ 3-dose series) 1988 Pneumococcal Vaccine: 50+ Ye ars (1 of 2 - PCV) 1988 Pneumococcal Vaccine: Pediat rics (0 to 5 Years) and At-Risk Patients (6 to 64 Years) (1 of 2 - PCV) 1988 Zoster Vaccines (1 of 2) 1988 Colorectal Cancer Screening: Colonoscopy 03/12/2022 Depression Screening 03/12/2022 Social Influencers of Health Screening 03/12/2022 COVID-19 Vaccine (2 - Pfizer risk series) 02/11/2023 01/21/2023 Influenza Vaccine (Season Ended) 2024 Cervical Cancer Screening: HPV 12/27/2025 12/27/2020 Cholesterol Screening (Lipid Panel) 03/10/2028 03/10/2023 HIV Screening Completed 07/10/2021 Hepatitis C Screening Completed 07/10/2021 HIB Vaccines Aged Out No longer eligi ble based on patient's age to complete this topic HPV Vaccines Aged Out No longer eligi ble based on patient's age to complete this topic Hepatitis A Vaccines Aged Out No long er eligible based on patient's age to complete this topic IPV Vaccines Aged Out No longer eligi ble based on patient's age to complete this topic MMR Vaccines Aged Out No longer eligi ble based on patient's age to complete this topic Meningococcal ACWY Vaccine Aged Out N o longer eligible based on patient's age to complete this topic Meningococcal B Vaccine Aged Out No l onger eligible based on patient's age to complete this topic RSV Immunization Patients Un dong 20 months Aged Out No longer eligible b ased on patient's age to complete this topic Varicella Vaccines Aged Out No longer eligible based on patient's age to complete this topic Procedures Procedure Name Priority Date/Time Associated Diagnosis Comments LIPID PANEL Routine 03/10/2023 HEPATITIS C SCREENING Routine 07/10/2021 HIV SCREENING Routine 07/10/2021 HPV Routine 12/27/2020 from Last 3 Months or Most Recently Relevant to Health Maintenance Results * Lipid panel (03/10/2023) Pathologist [facility] Triglycerides 0 mg/dL Comment:No interpretation, a bstracted Cholesterol 0 mg/dL Comment:No interpretation, a bstracted HDL 0 mg/dL Comment:No interpretation, a bstracted LDL Cholesterol 0 mg/dL Comment:No interpretation, a bstracted Blood Venous blood specimen / Unknown [facility] Provider LAB BLOOD ORDERABLES Hannah l Result * HIV Screening (07/10/2021) Pathologist [facility] HIV Screening Abstracted [facility] Provider HEALTH MAINTENANCE Final Result * Hepatitis C Screening (07/10/2021) Pathologist [facility] Hepatitis C Screening Abstracted [facility] Provider HEALTH MAINTENANCE Final Result * Cervical Cancer Screening: HPV (12/27/2020) Pathologist [facility] Cervical Cancer Screening: HPV No interpretation , abstracted [facility] Provider HEALTH MAINTENANCE Final Result from Last 3 Months or Most Recently Relevant to Health Maintenance Insurance MEDICAID - [place] Care Teams Paper Guillotine Operator Relationship Specialty Start Date End Date Tatiana Taylor PA [address] [place] [phone] PCP - General 12/10/22
[2024-07-23 16:20] VITALS: BP 155/89; PULSE 83; RESP 14; TEMP 37.2; O2SAT 97
[2024-07-23 17:55] VITALS: BP 155/89; PULSE 83; RESP 14; TEMP 37.2; O2SAT 97
== END 2024-07-23 17:55 | disposition home or self-care (01) ==
PROVIDERS: Nurse Practitioner Family; Emergency Provider Emergency Medicine Emergency Medical Services
DX: N63.10 Unspecified lump in the right breast, unspecified quadrant (principal); E11.9 Type 2 diabetes mellitus without complications; Z79.899 Other long term (current) drug therapy; Z79.4 Long term (current) use of insulin
CPT/HCPCS: 36415; 76642; 80053; 85025; 99284

== ENCOUNTER → 2024-07-23 16:38 | Outpatient (BNV) | payer MEDICAID, SELFPAY | PROVIDERS: Emergency Provider Emergency Medicine Emergency Medical Services; Visit Provider Radiology Diagnostic Radiology | DX: Z85.3 Personal history of malignant neoplasm of breast (principal) | CPT/HCPCS: 76642 ==

== ENCOUNTER → 2024-09-02 14:00 | Outpatient (BNV) | payer MEDICAID, SELFPAY | PROVIDERS: PCP Student in an Organized Health Care Education/Training Program; Visit Provider Internal Medicine | DX: Z12.31 Encounter for screening mammogram for malignant neoplasm of breast (principal) | CPT/HCPCS: 77063; 77067 ==

== ENCOUNTER 2024-09-02 14:04 | Outpatient (REF) | payer MEDICAID, SELFPAY ==
--- NOTE | ~2024-09-02 | MM_ITS ---
EXAMINATION: MM SCREENING DIGITAL BREAST TOMOSYNTHESIS, LEFT CLINICAL INFORMATION: Screening. Asymptomatic. History of right mastectomy 2019 and history of right breast cancer. COMPARISON: Mammography: This study is compared with prior exams dating back to TECHNIQUE: Digital breast tomosynthesis is performed in both the craniocaudal and mediolateral oblique views along with computer-aided detection (CAD). Synthesized 2D images are generated from the tomosynthesis. FINDINGS: There are scattered areas of fibroglandular density (ACR BI-RADS breast composition Category b). Marker clip in the retroareolar region. There are no significant masses, abnormal calcifications, or other abnormalities. MM/MM tomosynthesis screening LT IMPRESSION: No mammographic evidence of malignancy. ASSESSMENT: BI-RADS BI-RADS 2 - Benign Findings RECOMMENDATION: Routine annual mammography screening. 1 year F/U This examination should not preclude the clinical evaluation of a suspicious palpable abnormality. This patient's information was entered into a reminder system with a target due date for their next mammogram. Electronically signed by: Deloris Pickard DO 09/02/2024 02:53 PM EDT
--- OUTSIDE RECORDS SUMMARY | 2024-09-02 14:11 | XMS_ITS | Clinical Summary ---
Author Organization [facility] Address [address] [place] [phone] Phone Care Team Providers Care Toddler Nanny Name Role Phone Tatiana Taylor Primary Care Provider [phone] Allergies Active Allergy Reactions Criticality Noted Date [...] Type Department Care Team Description 07/22/2024 Telephone [facility] Hematology Oncology [address] [place] [phone] Yeni Acevedo MD from Last 3 Months Immunizations Name Administration Dates Next Due [facility] SARS-CoV-2 COVID-19, mRNA, LNP-S, preservative free 01/21/2023 [...] 02/05/2023 10:17 AM EDT Plan of Treatment Health Maintenance Due Date Last Done Comments Breast Cancer Screening 1970 DTaP,Tdap,and Td Vaccines (1 - Tdap) 1988 Hepatitis B Vaccines (1 of 3 - 19+ 3-dose series) 1988 Pneumococcal Vaccine: 50+ Ye ars (1 of 1 - PCV) 12/19/2019 Zoster Vaccines (1 of 2) 12/19/2019 Colorectal Cancer Screening: Colonoscopy 03/12/2022 Depression Screening [...] on patient's age to complete this topic Pneumococcal Vaccine: Pediat rics (0 to 5 Years) and At-Risk Patients (6 to 64 Years) Aged Out No longer eligi ble based [...] Health Maintenance Results * Lipid panel (03/10/2023) [facility] Triglycerides 0 mg/dL Comment:No interpretation, a bstracted Cholesterol 0 mg/dL Comment:No interpretation, a bstracted HDL 0 mg/dL Comment:No interpretation, a bstracted LDL Cholesterol 0 mg/dL Comment:No interpretation, a bstracted Blood Venous blood specimen / Unknown [facility] Provider LAB BLOOD ORDERABLES Hannah l Result * HIV Screening (07/10/2021) [facility] HIV Screening Abstracted [facility] Provider HEALTH MAINTENANCE Final Result * Hepatitis C Screening (07/10/2021) [facility] Hepatitis C Screening Abstracted [facility] Provider HEALTH MAINTENANCE Final Result * Cervical Cancer Screening: HPV (12/27/2020) [facility] Cervical Cancer Screening: HPV No interpretation , abstracted [facility] Provider HEALTH MAINTENANCE Final Result from Last 3 Months or Most Recently Relevant to Health Maintenance Insurance [place] - [place] Care Teams Toddler Nanny Relationship Specialty Start Date End Date Tatiana Taylor PA [address] [place] [address] PCP - General 12/10/22
== END 2024-09-02 14:05 | disposition home or self-care (01) ==
LOC: HO.MAMMO 14:04
PROVIDERS: PCP Student in an Organized Health Care Education/Training Program; Visit Provider Internal Medicine Medical Oncology
DX: Z12.31 Encounter for screening mammogram for malignant neoplasm of breast (principal)
CPT/HCPCS: 77063; 77067

== ENCOUNTER 2024-09-17 10:31 | Outpatient (REF) | payer MEDICAID, SELFPAY ==
[2024-09-17 13:24] LABS: MANUAL DIFF FLAG NO
[2024-09-17 13:46] LABS: Basophils Percent Auto 0.1 % (0-2); Eosinophils Percent Auto 0.6 % (0-4); Hematocrit 41.7 % (37.0-47.0); Hemoglobin 14.4 g/dl (12.0-16.0); Imm Gran Abs Auto 0.01 X10*3/uL (0.00-0.03); Imm Gran Pct Auto 0.1 % (0.0-0.4); Lymphocytes Absolute Auto 2.7 X10*3/uL (1.2-4.9); Lymphocytes Percent Auto 37.6 % (20-40); Mean Corpuscular HGB Conc 34.5 g/dl (31.0-35.0); Mean Corpuscular Hemoglobin 28.2 pg (27.0-33.0); Mean Corpuscular Volume 81.6 fL (80.0-98.0); Mean Platelet Volume 13.3 fL (9.4-12.3); Monocytes Absolute Auto 0.4 X10*3/uL (0.1-1.2); Monocytes Percent Auto 5.1 % (2-11); Neutrophils Absolute Auto 4.1 x10*3/uL (2.0-8.3); Neutrophils Percent Auto 56.5 % (45-73); Platelet Count 215 X10*3/uL (160-400); Red Blood Count 5.11 X10*6/uL (4.20-5.50); Red Cell Distribution Width 13.7 % (11.0-16.0); White Blood Count 7.2 X10*3/uL (4.8-10.8)
[2024-09-17 14:01] LABS: Estimated Average Glucose 203 mg/dL; Hemoglobin A1c % 8.7 % (<6.0); Total Hemoglobin (HGBA1C) 3647.7639 umol/L
[2024-09-17 14:03] LABS: Creatinine Urine 98.96 mg/dL; Microalbum/Creatinine Ratio Ur 62.6 ug/mg cr (<30)
[2024-09-17 14:35] LABS: Anion Gap 12 (12-20)
[2024-09-17 14:59] LABS: Alanine Aminotransferase 58 U/L (0-31); Albumin Level 4.6 g/dL (3.5-5.0); Alkaline Phosphatase 122 U/L (39-117); Aspartate Amino Transferase 25 U/L (5-31); Bilirubin Total 0.6 mg/dL (0.0-1.0); Blood Urea Nitrogen 15 mg/dL (9-16); Calcium 11.2 mg/dL (8.4-10.2); Carbon Dioxide 30 mmol/L (22-29); Chloride 100 mmol/L (96-108); Cholesterol 211 mg/dL (<200); Estimated Glomerular Filt Rate > 60; Glucose Random 433 mg/dL (60-115); HDL Cholesterol 39 mg/dL (>40); Potassium 4.3 mmol/L (3.3-5.1); Sodium 138 mmol/L (135-145); Triglycerides 401 mg/dL (<150)
== END 2024-09-17 10:32 | disposition home or self-care (01) ==
LOC: HO.HHCL 10:31
PROVIDERS: Visit Provider Internal Medicine Geriatric Medicine
DX: E11.9 Type 2 diabetes mellitus without complications (principal); C50.419 Malignant neoplasm of upper-outer quadrant of unspecified female breast; Z17.1 Estrogen receptor negative status [ER-]; H54.3 Unqualified visual loss, both eyes
CPT/HCPCS: 36415; 80053; 80061; 82043; 82570; 83036; 85025

== ENCOUNTER 2024-09-20 23:18 | Emergency (ER) | payer MEDICAID, SELFPAY ==
--- NOTE | ~2024-09-20 | XR_ITS ---
CLINICAL HISTORY: cough 1 view chest x-ray Comparison: None Findings: The lungs are clear. Normal size heart. No acute fracture. IMPRESSION: 1. No acute findings. This document has been electronically signed by: Tim Hutton MD on 09/21/2024 01:05:04
[2024-09-20 23:44] VITALS: BP 100/55; PULSE 113; RESP 20; TEMP 37.7; O2SAT 96; BMI 24.9
--- NOTE | 2024-09-20 23:45 | ED.URI ---
HPI - URI/Sore Throat General Chief Complaint: Upper Respiratory Symptoms Stated Complaint: Headache Time Seen by Provider: 09/20/24 23:44 Source: patient, old records reviewed and box [employer] up[employer]ste[employer] Mode of arrival: ambulatory Limitations: no limitations History of Present Illness ED Provider: BRITT OVIEDO Narrative: 53 yo female with PMH of DM, asthma, GERD, breast cancer on hormone therapy now under surveillance but recent nodule found at this time she c/o 1 day of poor PO intake, sore throat, fevers, chills, sinus pressure, ear pain. She notes she didn't take her meds today due to sore throat but was able to take tylenol. She denies CP/SOB. She had a neg home COVID test yesterday. She has had her COVID vaccines. Her son is sick as well she states she thinks he has covid. MD elicited complaint: fever, cough, sore throat, rhinorrhea and sinus pain Pertinent past history: asthma Onset (ago): day(s) (1) Consistency: constant Severity: moderate Description of mucous: watery Able to tolerate fluids by mouth: Yes Exacerbating factors: swallowing Relieving factors: nothing Context: sick contacts Associated symptoms: fever, chills, myalgias, headache, rhinorrhea, nasal congestion and ear pain Treatments prior to arrival: acetaminophen Related Data Home Medications ?Medication ?Instructions ?Recorded ?Confirmed albuterol sulfate 90 mcg/actuation 2 puff inhalation Q6H PRN Wheezing 03/20/20 08/17/24 aerosol inhaler (Ventolin HFA) cholecalciferol (vitamin D3) 25 25 mcg PO DAILY 03/20/20 08/17/24 mcg (1,000 unit) tablet epinephrine 0.3 mg/0.3 mL 0.3 mg IM NEEDED PRN Allergic 03/20/20 08/17/24 injection, auto-injector Reaction gabapentin 300 mg capsule 1 cap PO BEDTIME PRN Pain 03/20/20 08/17/24 ipratropium bromide 18 2 puff inhalation BID PRN Wheezing 03/20/20 08/17/24 mcg/actuation aerosol inhaler loratadine 10 mg tablet 1 tab PO DAILY allergies 03/20/20 08/17/24 metformin 500 mg tablet 1 tab PO BID 03/20/20 08/17/24 montelukast 10 mg tablet 1 tab PO BEDTIME allergies 03/20/20 08/17/24 nitroglycerin 0.4 mg sublingual 1 tab sublingual NEEDED angina 03/20/20 08/17/24 tablet omeprazole 20 mg capsule,delayed 1 cap PO DAILY 03/20/20 08/17/24 release ondansetron 8 mg disintegrating 8 mg PO Q12H 03/20/20 08/17/24 tablet dulaglutide 0.75 mg/0.5 mL 0.75 mg subcut QWEEK 10/12/20 08/17/24 subcutaneous pen injector (Trulicity) insulin glargine 100 unit/mL (3 10 unit subcut QPM 01/19/21 08/17/24 mL) subcutaneous pen (Lantus Solostar U-100 Insulin) pantoprazole 20 mg tablet,delayed 1 tab PO QAM 01/19/21 08/17/24 release Previous Rx's ?Medication ?Instructions ?Recorded clindamycin HCl 300 mg capsule 300 mg PO BID 10 days #20 caps 01/08/21 oxycodone 5 mg tablet 5 mg PO Q8H PRN pain 3 days #10 01/08/21 tabs anastrozole 1 mg tablet 1 mg PO DAILY #90 tabs 01/17/22 clindamycin HCl 300 mg capsule 300 mg PO TID #21 caps 08/17/24 cephalexin 500 mg capsule 500 mg PO TID 7 days #21 caps 09/21/24 Allergies Allergy/AdvReac Type Severity Reaction Status Date / Time acetaminophen Allergy Difficulty Verified 09/20/24 23:51 [From Tylenol PM] Breathing aspirin Allergy Itching Verified 09/20/24 23:51 bee pollen [bee stings] Allergy Anaphylaxis Verified 09/20/24 23:51 codeine Allergy Swelling Verified 09/20/24 23:51 diphenhydramine Allergy Difficulty Verified 09/20/24 23:51 [From Tylenol PM] Breathing latex Allergy Itching Verified 09/20/24 23:51 Penicillins Allergy Rash Verified 09/20/24 23:51 Review of Systems Review of Systems: Constitutional : positive Fever, positive Chills, positive fatigue, positive Malaise ENT/Mouth : positive sore throat, positive runny nose, pos ear pain Eyes: No Discharge Cardiovascular : No Chest Pain, No SOB Respiratory : pos Cough, No Sputum Gastrointestinal : No Nausea, No Vomiting, No Diarrhea Genitourinary : No Dysuria, No Urinary Frequency Musculoskeletal : positive Myalgia Skin : No rash Neuro : No Headache all other systems reviewed and are negative [facility] Past Medical History Medical History Breast cancer Type 2 diabetes mellitus with diabetic polyneuropathy, with long-term current use of insulin Asthma Myocardial infarction Nonalcoholic fatty liver disease Hyperlipidemia Ovarian cyst History of stroke Surgical History Hx of tonsillectomy History of delivery H/O right mastectomy Family History Family History Family/Other Breast cancer Maternal Aunt Breast cancer Maternal Grandmother Breast cancer Paternal Grandmother Breast cancer Social History Social History Alcohol intake: former Patient Tobacco Use Status: Never used Tobacco Smoked in Last 30 Days: No Use of substances other than those prescribed or required for medical reasons: No Advance Directives: No Advance Directives Information Provided: No Physical Exam Vital Signs: Vital Signs: Last Vital Signs Temp 98.6 F 09/21/24 01:34 Pulse 97 09/21/24 01:34 Resp 16 09/21/24 01:34 BP 115/50 L 09/21/24 01:34 Pulse Ox 95 09/21/24 01:34 O2 Del Method Room Air 09/21/24 01:34 BMI result Body Mass Index 24.9 Appearance: Alert. Oriented X3. No acute distress. Eyes: Pupils equal, round and reactive to light. ENT: Pharynx erythema but no exudates, uvula is midline. R TM normal L TM bulging red and loss of landmarks no perforation Neck: Normal inspection. Neck supple. CVS: Normal heart rate and rhythm. Pulses normal. Respiratory: No respiratory distress. Breath sounds normal. Abdomen: Soft and nontender. Skin: Skin warm and dry. Normal skin color. Normal skin turgor. Extremities: No lower extremity edema. No calf ttp Neuro: Oriented X 3. No motor deficit. No sensory deficit. CN2-12 intact Medications Administered Discontinued Medications Generic Name Dose Route Start Last Admin Trade Name Freq PRN Reason Stop Dose Admin Cephalexin HCl 500 mg 09/20/24 23:47 09/21/24 00:17 Cephalexin 500 Mg Capsule PO 09/20/24 23:48 500 mg ONCE ONE Administration Lactated Ringer's 1,000 mls @ 999 mls/hr 09/20/24 23:51 09/21/24 01:10 Lr IV 09/21/24 00:51 Infused .Q1H1M ONE Infusion Insulin Human Lispro 5 unit 09/21/24 00:51 09/21/24 01:09 Insulin Lispro 100 Unit/Ml 3 Ml Vial SUBCUT 09/21/24 00:52 5 unit ONCE ONE Administration Medical Decision Making Medical Decision Making MDM Narrative: 53 yo female with PMH of DM, asthma, GERD, breast cancer on hormone therapy now possible new nodule who has had URI symptoms x 1 day and exposed to her son who possibly has COVID at this time she denies CP/SOB she reports poor PO intake. At this time suspect AOM, strep, viral syndrome, dehydration. Differential Diagnosis Differential Diagnoses: The differential diagnosis associated with the presentation includes AOM, strep, viral syndrome, dehydration Admission/Observation Consideration of admission/observation: Escalation of care including admission/observation considered VS improved, no hypoxia feels much better stable for DC VS improved Lab Data [facility] Lab Attestation statement: I reviewed the patient's lab results. 09/21/24 00:05 09/21/24 00:04 Labs: Lab Results 09/21/24 09/21/24 09/21/24 Range/Units 00:04 00:05 01:36 WBC 10.3 (4.8-10.8) X10*3/uL RBC 4.92 (4.20-5.50) X10*6/uL Hgb 14.2 (12.0-16.0) g/dl Hct 38.9 (37.0-47.0) % MCV 79.1 L (80.0-98.0) fL MCH 28.9 (27.0-33.0) pg MCHC 36.5 H (31.0-35.0) g/dl RDW 13.6 (11.0-16.0) % Plt Count 201 (160-400) X10*3/uL MPV 12.3 (9.4-12.3) fL Immature Gran % (Auto) 0.3 (0.0-0.4) % Neut % (Auto) 85.1 H (45-73) % Lymph % (Auto) 8.6 L (20-40) % [place] % (Auto) 5.9 (2-11) % Eos % (Auto) 0.0 (0-4) % Baso % (Auto) 0.1 (0-2) % Lymph # (Auto) 0.9 L (1.2-4.9) X10*3/uL [place] # (Auto) 0.6 (0.1-1.2) X10*3/uL Eos # (Auto) 0.0 (0.0-0.4) X10*3/uL Baso # (Auto) 0.0 (0.0-0.2) X10*3/uL Abs Immat Gran (auto) 0.03 (0.00-0.03) X10*3/uL Absolute Neuts (auto) 8.8 H (2.0-8.3) x10*3/uL Absolute Nucleated RBC 0.000 (0.0-0.012) X10*3/uL Nucleated RBC % (auto) 0.0 (0.0-0.2) /100WBC Sodium 133 L (135-145) mmol/L Potassium 4.1 (3.3-5.1) mmol/L Chloride 98 (96-108) mmol/L Carbon Dioxide 22 (22-29) mmol/L Anion Gap 17 (12-20) BUN 18 H (9-16) mg/dL Creatinine 0.97 (0.5-1.4) mg/dL Estim Creat Clear Calc 62.1 Estimated GFR 60 Random Glucose 429 H* (60-115) mg/dL Calcium 9.6 D (8.4-10.2) mg/dL Urine Color Yellow Urine Appearance Clear Urine pH 6.5 (5.0-9.0) Ur Specific [place] 1.015 (1.005-1.025) Urine Protein 30 (1+) H (Neg-Trace) mg/dL Urine Glucose (UA) >=1000 H (Negative) mg/dL Urine Ketones Negative (Negative) mg/dL Urine Blood Negative (Negative) Urine Nitrite Negative (Negative) Ur Leukocyte Esterase Negative (Negative) Urine RBC 0-2 (0-2) /HPF Urine WBC 0-5 (0-5) /HPF Ur Squamous Epith Cells 0-2 (0-2) /HPF Urine Bacteria None Seen (None Seen) Hyaline Casts 0-2 (0-2) /LPF Influenza Type A (PCR) NEGATIVE (Negative) Influenza Type B (PCR) NEGATIVE (Negative) RSV RNA Qual (PCR) NEGATIVE (Negative) SARS-CoV-2 RNA (RT-PCR) POSITIVE A (Negative) S. pyogenes GrpA RODGER Negative (Negative) Independent Interpretation I performed an independent interpretation of an: Plain X-Ray (no pneumonia) Radiology Impression Discussion of test interpretation with radiology: I have reviewed the radiologist's reading. External Record Review External record reviewed: Inpatient record and Outpatient record Prescription Management I considered prescription management with: Antiviral and Antibiotic Discharge Plan Discharge Clinical Impression: COVID-19, Acute hyperglycemia Acute otitis media Qualifiers: Otitis media type: suppurative Laterality: left Recurrence: non-recurrent Spontaneous tympanic membrane rupture: without spontaneous rupture Qualified Code(s): H66.002 - Acute suppurative otitis media without spontaneous rupture of ear drum, left ear Patient Disposition: Home, Self-Care Instructions: Ear Infection (ED), Diabetic Hyperglycemia (ED), COVID-19 (Coronavirus Disease 2019) (ED) Additional Instructions: rest and stay hydrated return for worsening symptoms - chest pain, trouble breathing, unable to eat or drink or any other concerns hold your blood pressure medications for 2 days On a cephalosporin?antibiotic, softer bowel movements are to be expected. Call your provider if you move your bowels more than 4 times a day, your bowel movements are almost all liquid, or you get a rash.?? Prescriptions: New cephalexin 500 mg capsule 500 mg PO TID 7 Days Qty: 21 0RF No Action metformin 500 mg tablet 1 tab PO BID Atrovent 18 mcg/actuation Aerosol 2 puff INHALATION BID PRN (Reason: Wheezing) ondansetron 8 mg Tablet,Disintegrating 8 mg PO Q12H nitroglycerin 0.4 mg tablet, sublingual 1 tab sublingual NEEDED gabapentin 300 mg capsule 1 cap PO BEDTIME PRN (Reason: Pain) omeprazole 20 mg capsule,delayed release(DR/EC) 1 cap PO DAILY montelukast 10 mg tablet 1 tab PO BEDTIME epinephrine 0.3 mg/0.3 mL auto-injector 0.3 mg IM NEEDED PRN (Reason: Allergic Reaction) albuterol sulfate [Ventolin HFA] 90 mcg/actuation Hfa Aerosol Inhaler 2 puff INHALATION Q6H PRN (Reason: Wheezing) loratadine 10 mg tablet 1 tab PO DAILY cholecalciferol (vitamin D3) 25 mcg (1,000 unit) Tablet 25 mcg PO DAILY anastrozole 1 mg Tablet 1 mg PO DAILY Qty: 90 4RF clindamycin HCl 300 mg Capsule 300 mg PO TID Qty: 21 0RF pantoprazole 20 mg tablet,delayed release (DR/EC) 1 tab PO QAM insulin glargine [Lantus Solostar U-100 Insulin] 100 unit/mL (3 mL) insulin pen 10 unit subcut QPM clindamycin HCl 300 mg capsule 300 mg PO BID 10 Days Qty: 20 0RF oxycodone 5 mg tablet 5 mg PO Q8H PRN (Reason: pain) 3 Days Qty: 10 0RF Trulicity 0.75 mg/0.5 mL pen injector 0.75 mg subcut QWEEK Print Language: Upper Sorbian
[2024-09-21] MEDS: Lactated Ringers 1,000 ML 999 ML IV (00:07)
--- NOTE | 2024-09-21 00:12 | PC.NURSE ---
per pharmacy and dr avinash cedillo okay to give, despite penicillin allergy per pt reaction to penicillin is body rash
[2024-09-21 00:13] LABS: MANUAL DIFF FLAG NO
[2024-09-21 00:16] LABS: Basophils Percent Auto 0.1 % (0-2); Hematocrit 38.9 % (37.0-47.0); Hemoglobin 14.2 g/dl (12.0-16.0); Imm Gran Abs Auto 0.03 X10*3/uL (0.00-0.03); Imm Gran Pct Auto 0.3 % (0.0-0.4); Lymphocytes Absolute Auto 0.9 X10*3/uL (1.2-4.9); Lymphocytes Percent Auto 8.6 % (20-40); Mean Corpuscular HGB Conc 36.5 g/dl (31.0-35.0); Mean Corpuscular Hemoglobin 28.9 pg (27.0-33.0); Mean Corpuscular Volume 79.1 fL (80.0-98.0); Mean Platelet Volume 12.3 fL (9.4-12.3); Monocytes Absolute Auto 0.6 X10*3/uL (0.1-1.2); Monocytes Percent Auto 5.9 % (2-11); Neutrophils Absolute Auto 8.8 x10*3/uL (2.0-8.3); Neutrophils Percent Auto 85.1 % (45-73); Platelet Count 201 X10*3/uL (160-400); Red Blood Count 4.92 X10*6/uL (4.20-5.50); Red Cell Distribution Width 13.6 % (11.0-16.0); White Blood Count 10.3 X10*3/uL (4.8-10.8)
[2024-09-21] MEDS: cephALEXin 500 MG CAPSULE PO (00:17)
[2024-09-21 00:28] LABS: IDNOW Serial# 58CA691E; Strep A Nucleic Acid Negative (Negative)
[2024-09-21 00:31] VITALS: BP 100/55; PULSE 113; RESP 20; TEMP 37.7; O2SAT 96
[2024-09-21 00:48] LABS: Anion Gap 17 (12-20); Blood Urea Nitrogen 18 mg/dL (9-16); Calcium 9.6 mg/dL (8.4-10.2); Carbon Dioxide 22 mmol/L (22-29); Chloride 98 mmol/L (96-108); Creatinine Clr Calc Pharmacy 62.1; Estimated Glomerular Filt Rate 60; Glucose Random 429 mg/dL (60-115); Potassium 4.1 mmol/L (3.3-5.1); Sodium 133 mmol/L (135-145)
[2024-09-21 00:54] LABS: Influenza A PCR NEGATIVE (Negative); Influenza B PCR NEGATIVE (Negative); Resp Syncy Virus RNA Qual PCR NEGATIVE (Negative); SARS COV2 PCR INHOUSE POSITIVE (Negative)
[2024-09-21] MEDS: Insulin Lispro 100 UNIT/ML 3 ML VIAL SUBCUT (01:09)
[2024-09-21 01:34] VITALS: BP 115/50; PULSE 97; RESP 16; TEMP 37; O2SAT 95
[2024-09-21 01:42] LABS: Appearance Urine Clear; Color Urine Yellow; Glucose Urine UA >=1000 mg/dL (Negative); Leukocyte Esterase Urine Negative (Negative); Nitrite Urine Negative (Negative); PH 6.5 (5.0-9.0); Specific Gravity - Urine 1.015 (1.005-1.025); UMIC TRIGGER UACC YES; Urine Blood Negative (Negative); Urine Ketones Negative (Negative); Urine Protein 30 (1+) mg/dL (Neg-Trace)
[2024-09-21 01:44] LABS: Bacteria Urine None Seen (None Seen); Hyaline Casts Urine 0-2 /LPF (0-2); RBC Urine 0-2 /HPF (0-2); Squamous Epithelial Cell Urine 0-2 /HPF (0-2); WBC Urine 0-5 /HPF (0-5)
[2024-09-21 02:01] LABS: Glucose, Whole Blood 354 mg/dL (60-115)
[2024-09-21 03:03] VITALS: BP 115/50; PULSE 97; RESP 16; TEMP 37; O2SAT 95
== END 2024-09-21 03:04 | disposition home or self-care (01) ==
PROVIDERS: Emergency Provider Emergency Medicine
DX: U07.1 COVID-19 (principal); H66.002 Acute suppurative otitis media without spontaneous rupture of ear drum, left ear; E11.65 Type 2 diabetes mellitus with hyperglycemia; R11.0 Nausea; R05.9 Cough, unspecified; Z79.4 Long term (current) use of insulin; Z79.899 Other long term (current) drug therapy; Z03.818 Encounter for observation for suspected exposure to other biological agents ruled out
CPT/HCPCS: 0241U; 36415; 71045; 80048; 81001; 82947; 85025; 87651; 96360; 99284; 99285; J7120

== ENCOUNTER → 2024-09-21 00:08 | Outpatient (BNV) | payer MEDICAID, SELFPAY | PROVIDERS: Emergency Provider Emergency Medicine; Visit Provider Radiology Diagnostic Radiology | DX: R07.9 Chest pain, unspecified (principal) | CPT/HCPCS: 71045 ==

== ENCOUNTER 2024-09-22 01:03 | Emergency (ER) | payer MEDICAID, SELFPAY ==
[2024-09-22 01:11] VITALS: BP 141/59; PULSE 91; RESP 18; TEMP 36.6; O2SAT 97; BMI 24.9
[2024-09-22 01:20] LABS: Glucose, Whole Blood 459 mg/dL (60-115)
[2024-09-22 03:01] LABS: MANUAL DIFF FLAG NO
[2024-09-22 03:02] LABS: Basophils Percent Auto 0.2 % (0-2); Eosinophils Percent Auto 0.2 % (0-4); Hematocrit 38.9 % (37.0-47.0); Hemoglobin 13.4 g/dl (12.0-16.0); Imm Gran Abs Auto 0.02 X10*3/uL (0.00-0.03); Imm Gran Pct Auto 0.4 % (0.0-0.4); Lymphocytes Absolute Auto 1.8 X10*3/uL (1.2-4.9); Lymphocytes Percent Auto 35.4 % (20-40); Mean Corpuscular HGB Conc 34.4 g/dl (31.0-35.0); Mean Corpuscular Hemoglobin 27.9 pg (27.0-33.0); Mean Platelet Volume 12.4 fL (9.4-12.3); Monocytes Absolute Auto 0.5 X10*3/uL (0.1-1.2); Neutrophils Absolute Auto 2.7 x10*3/uL (2.0-8.3); Neutrophils Percent Auto 53.8 % (45-73); Platelet Count 176 X10*3/uL (160-400); Red Cell Distribution Width 13.7 % (11.0-16.0); White Blood Count 5.1 X10*3/uL (4.8-10.8)
[2024-09-22 03:23] LABS: Alanine Aminotransferase 46 U/L (0-31); Albumin Level 4.4 g/dL (3.5-5.0); Alkaline Phosphatase 103 U/L (39-117); Anion Gap 13 (12-20); Aspartate Amino Transferase 32 U/L (5-31); Bilirubin Direct 0.2 mg/dL (0.0-0.5); Bilirubin Total 0.4 mg/dL (0.0-1.0); Blood Urea Nitrogen 14 mg/dL (9-16); Calcium 9.5 mg/dL (8.4-10.2); Carbon Dioxide 26 mmol/L (22-29); Chloride 101 mmol/L (96-108); Creatinine Clr Calc Pharmacy 70.8; Estimated Glomerular Filt Rate > 60; Glucose Random 447 mg/dL (60-115); Potassium 3.9 mmol/L (3.3-5.1); Sodium 136 mmol/L (135-145); Total Protein 7.4 g/dL (6.5-8.0)
[2024-09-22] MEDS: 0.9 % Sodium Chloride 1,000 ML 999 ML IV ×2 (05:29→09:22)
[2024-09-22 07:15] VITALS: BP 151/71; PULSE 84; RESP 18; TEMP 36.6; O2SAT 98
--- NOTE | 2024-09-22 08:30 | ED.GENADULT ---
HPI - General Adult General Chief complaint: Recheck/Abnormal Lab/Rx Stated complaint: high sugar levels Time Seen by Provider: 09/22/24 08:04 Source: patient, RN notes reviewed and old records reviewed Mode of arrival: ambulatory History of Present Illness ED Provider: Eunice Valentine PA-C HPI narrative: 53-year-old female with a past medical history of diabetes, asthma, GERD, breast CA on hormone therapy, recent COVID-19 diagnosis, presenting to the ED complaining of elevated glucose at home. Reports compliance with Metformin and Trulicity. Reports URI symptoms with headache, rhinorrhea, cough. Denies CP/SOB, abdominal pain, nausea, vomiting, diarrhea Related Data Home Medications ?Medication ?Instructions ?Recorded ?Confirmed albuterol sulfate 90 mcg/actuation 2 puff inhalation Q6H PRN Wheezing 03/20/20 08/17/24 aerosol inhaler (Ventolin HFA) cholecalciferol (vitamin D3) 25 25 mcg PO DAILY 03/20/20 08/17/24 mcg (1,000 unit) tablet epinephrine 0.3 mg/0.3 mL 0.3 mg IM NEEDED PRN Allergic 03/20/20 08/17/24 injection, auto-injector Reaction gabapentin 300 mg capsule 1 cap PO BEDTIME PRN Pain 03/20/20 08/17/24 ipratropium bromide 18 2 puff inhalation BID PRN Wheezing 03/20/20 08/17/24 mcg/actuation aerosol inhaler loratadine 10 mg tablet 1 tab PO DAILY allergies 03/20/20 08/17/24 metformin 500 mg tablet 1 tab PO BID 03/20/20 08/17/24 montelukast 10 mg tablet 1 tab PO BEDTIME allergies 03/20/20 08/17/24 nitroglycerin 0.4 mg sublingual 1 tab sublingual NEEDED angina 03/20/20 08/17/24 tablet omeprazole 20 mg capsule,delayed 1 cap PO DAILY 03/20/20 08/17/24 release ondansetron 8 mg disintegrating 8 mg PO Q12H 03/20/20 08/17/24 tablet dulaglutide 0.75 mg/0.5 mL 0.75 mg subcut QWEEK 10/12/20 08/17/24 subcutaneous pen injector (Trulicity) insulin glargine 100 unit/mL (3 10 unit subcut QPM 10/08/21 05/06/25 mL) subcutaneous pen (Lantus Solostar U-100 Insulin) pantoprazole 20 mg tablet,delayed 1 tab PO QAM 01/19/21 08/17/24 release Previous Rx's ?Medication ?Instructions ?Recorded clindamycin HCl 300 mg capsule 300 mg PO BID 10 days #20 caps 01/08/21 oxycodone 5 mg tablet 5 mg PO Q8H PRN pain 3 days #10 01/08/21 tabs anastrozole 1 mg tablet 1 mg PO DAILY #90 tabs 01/17/22 clindamycin HCl 300 mg capsule 300 mg PO TID #21 caps 08/17/24 cephalexin 500 mg capsule 500 mg PO TID 7 days #21 caps 09/21/24 Allergies Allergy/AdvReac Type Severity Reaction Status Date / Time acetaminophen Allergy Difficulty Verified 09/22/24 01:12 [From Tylenol PM] Breathing aspirin Allergy Itching Verified 09/22/24 01:12 bee pollen [bee stings] Allergy Anaphylaxis Verified 09/22/24 01:12 codeine Allergy Swelling Verified 09/22/24 01:12 diphenhydramine Allergy Difficulty Verified 09/22/24 01:12 [From Tylenol PM] Breathing latex Allergy Itching Verified 09/22/24 01:12 Penicillins Allergy Rash Verified 09/22/24 01:12 Review of Systems Review of Systems: Yes all other systems are reviewed and are negative Constitutional: Constitutional: Reports as per [facility] Past Medical History Attestation statement: The following information was validated with the patient. Source: old records reviewed Medical History Breast cancer Type 2 diabetes mellitus with diabetic polyneuropathy, with long-term current use of insulin Asthma Myocardial infarction Nonalcoholic fatty liver disease Hyperlipidemia Ovarian cyst History of stroke Surgical History Hx of tonsillectomy History of delivery H/O right mastectomy Family History Family History Family/Other Breast cancer Maternal Aunt Breast cancer Maternal Grandmother Breast cancer Paternal Grandmother Breast cancer Social History Social History Alcohol intake: former Patient Tobacco Use Status: Never used Tobacco Advance Directives: No Advance Directives Information Provided: Yes Do you have a plan to hurt others: No Plan Physical Exam ED Vital Signs: Vital Signs - 24 hr 09/22/24 01:11 09/22/24 07:15 Temperature 97.8 F 97.9 F Pulse Rate 91 84 Respiratory Rate 18 18 Blood Pressure 141/59 H 151/71 H Pulse Oximetry 97 98 Oxygen Delivery Method Room Air Room Air BMI result Body Mass Index 24.9 Const General: cooperative, healthy appearing and no acute distress Orientation/consciousness: patient oriented x3 Limitations: no limitations HENMT Head: Yes normal to inspection and Yes atraumatic Ears: hearing grossly normal bilaterally General nose exam: Normal external nose present Face and sinus: Yes normal facial exam Eyes General: appearance normal, both eyes and all related structures EOM: EOMs intact bilaterally Neck Neck: Yes normal visual inspection and Yes no meningeal signs Resp Effort & Inspection: normal respiratory effort and no respiratory distress Auscultation: clear to auscultation bilaterally, no crackles, no rhonchi and no wheezes Cardio Rate: regular rate Heart sounds: S1 normal heart sound present and S2 normal heart sound present GI Inspection: Yes normal to inspection Palpation (GI): Soft to palpation, nontender, no guarding and not rigid Skin Rashes: no rashes Wounds: no wounds Neuro General: patient oriented x3, tone normal and no meningeal signs Cranial nerves: Yes CN's II-XII intact bilaterally Gait exam (Neuro): Normal gait present Extrem General: Yes normal to inspection Course Course Course Narrative: -0928--no leukocytosis. Hyperglycemia 447, no anion gap. AST/ALT mildly elevated. Beta hydroxybutyrate negative >> we will give IVF and repeat - POC 237 > patient is safe for discharge home at this time. Recommended close glucose monitoring and compliance with medications. Results discussed with patient including worrisome signs and symptoms and strict return precautions, and when to return to the emergency department. They verbalized understanding and feel safe for discharge at this time. Medications Administered Discontinued Medications Generic Name Dose Route Start Last Admin Trade Name Freq PRN Reason Stop Dose Admin Sodium Chloride 1,000 mls @ 999 mls/hr 09/22/24 05:15 09/22/24 07:13 Ns IV 09/22/24 06:15 Infused .Q1H1M CARRILLO Infusion Sodium Chloride 1,000 mls @ 999 mls/hr 09/22/24 08:45 09/22/24 11:00 Ns IV 09/22/24 09:45 Infused .Q1H1M CARRILLO Infusion Medical Decision Making Medical Decision Making [facility] [place] Narrative: 53-year-old female with a past medical history of diabetes, asthma, GERD, breast CA on hormone therapy, recent COVID-19 diagnosis, presenting to the ED complaining of elevated glucose at home. On exam vital signs stable, NAD, nontoxic appearing, lungs CTA, abdomen is soft and nontender. Concern for continued viral illness. Concern for hyperglycemia vs DKA vs HHS. Rule out metabolic abnormalities. Low suspicion for severe sepsis at this time Plan: EKG, labs, UA, IVF Please refer to course for remaining clinical decision making, interpretation of labs/imaging results, and discussions with consultants and/or family members. Differential Diagnosis Differential Diagnoses: The differential diagnosis associated with the presentation includes As above Admission/Observation Consideration of admission/observation: Escalation of care including admission/observation considered Lab Data [facility] [place] Lab Attestation statement: I reviewed the patient's lab results. 09/22/24 02:54 09/22/24 02:54 Labs: Lab Results 09/22/24 09/22/24 09/22/24 Range/Units 01:08 02:54 09:21 WBC 5.1 (4.8-10.8) X10*3/uL RBC 4.80 (4.20-5.50) X10*6/uL Hgb 13.4 (12.0-16.0) g/dl Hct 38.9 (37.0-47.0) % MCV 81.0 (80.0-98.0) fL MCH 27.9 (27.0-33.0) pg MCHC 34.4 (31.0-35.0) g/dl RDW 13.7 (11.0-16.0) % Plt Count 176 (160-400) X10*3/uL MPV 12.4 H (9.4-12.3) fL Immature Gran % (Auto) 0.4 (0.0-0.4) % Neut % (Auto) 53.8 (45-73) % Lymph % (Auto) 35.4 (20-40) % [place] % (Auto) 10.0 (2-11) % Eos % (Auto) 0.2 (0-4) % Baso % (Auto) 0.2 (0-2) % Lymph # (Auto) 1.8 (1.2-4.9) X10*3/uL [place] # (Auto) 0.5 (0.1-1.2) X10*3/uL Eos # (Auto) 0.0 (0.0-0.4) X10*3/uL Baso # (Auto) 0.0 (0.0-0.2) X10*3/uL Abs Immat Gran (auto) 0.02 (0.00-0.03) X10*3/uL Absolute Neuts (auto) 2.7 (2.0-8.3) x10*3/uL Absolute Nucleated RBC 0.000 (0.0-0.012) X10*3/uL Nucleated RBC % (auto) 0.0 (0.0-0.2) /100WBC Sodium 136 (135-145) mmol/L Potassium 3.9 (3.3-5.1) mmol/L Chloride 101 (96-108) mmol/L Carbon Dioxide 26 (22-29) mmol/L Anion Gap 13 (12-20) BUN 14 (9-16) mg/dL Creatinine 0.85 (0.5-1.4) mg/dL Estim Creat Clear Calc 70.8 Estimated GFR > 60 POC Glucose 459 H* 237 H (60-115) mg/dL Random Glucose 447 H* (60-115) mg/dL Calcium 9.5 (8.4-10.2) mg/dL Magnesium 1.8 (1.6-2.6) mg/dL Total Bilirubin 0.4 (0.0-1.0) mg/dL Direct Bilirubin 0.2 (0.0-0.5) mg/dL AST 32 H (5-31) U/L ALT 46 H (0-31) U/L Alkaline Phosphatase 103 (39-117) U/L Total Protein 7.4 (6.5-8.0) g/dL Albumin 4.4 (3.5-5.0) g/dL Beta-Hydroxybutyrate 0.11 (0.02-0.27) mmol/L Independent Interpretation I performed an independent interpretation of an: EKG (My interpretation EKG normal sinus rhythm rate of 81. HI interval 150. QTC 455. No previous to compare. No STEMI ) Radiology Impression Discussion of test interpretation with radiology: I have reviewed the radiologist's reading. External Record Review External record reviewed: Inpatient record, Office record, Outpatient record, Prior outpatient labs, Prior outpatient radiology, Primary care record and Outside ED record Tests considered The following testing was considered but not selected: As above Prescription Management I considered prescription management with: Other Chronic Conditions Patient?s care impacted by: Diabetes and Other Social Determinants Patient?s care significantly limited by Social Determinants of Health including: Other Social Determinant of Health Discharge Plan Discharge Clinical Impression: Hyperglycemia Patient Disposition: Home, Self-Care Instructions: Diabetic Hyperglycemia (ED) Additional Instructions: Your glucose was elevated today. It has come down. Make sure you are staying hydrated Continue to monitor your sugar closely at home Continue taking your diabetic medications If her sugar continues to be elevated, and or is too low please return to the emergency department Please have close follow up with your doctor Continue to follow COVID-19 precautions Prescriptions: No Action metformin 500 mg tablet 1 tab PO BID Atrovent 18 mcg/actuation Aerosol 2 puff INHALATION BID PRN (Reason: Wheezing) ondansetron 8 mg Tablet,Disintegrating 8 mg PO Q12H nitroglycerin 0.4 mg tablet, sublingual 1 tab sublingual NEEDED gabapentin 300 mg capsule 1 cap PO BEDTIME PRN (Reason: Pain) omeprazole 20 mg capsule,delayed release(DR/EC) 1 cap PO DAILY montelukast 10 mg tablet 1 tab PO BEDTIME epinephrine 0.3 mg/0.3 mL auto-injector 0.3 mg IM NEEDED PRN (Reason: Allergic Reaction) albuterol sulfate [Ventolin HFA] 90 mcg/actuation Hfa Aerosol Inhaler 2 puff INHALATION Q6H PRN (Reason: Wheezing) loratadine 10 mg tablet 1 tab PO DAILY cholecalciferol (vitamin D3) 25 mcg (1,000 unit) Tablet 25 mcg PO DAILY anastrozole 1 mg Tablet 1 mg PO DAILY Qty: 90 4RF clindamycin HCl 300 mg Capsule 300 mg PO TID Qty: 21 0RF pantoprazole 20 mg tablet,delayed release (DR/EC) 1 tab PO QAM insulin glargine [Lantus Solostar U-100 Insulin] 100 unit/mL (3 mL) insulin pen 10 unit subcut QPM clindamycin HCl 300 mg capsule 300 mg PO BID 10 Days Qty: 20 0RF oxycodone 5 mg tablet 5 mg PO Q8H PRN (Reason: pain) 3 Days Qty: 10 0RF cephalexin 500 mg capsule 500 mg PO TID 7 Days Qty: 21 0RF Trulicity 0.75 mg/0.5 mL pen injector 0.75 mg subcut QWEEK Referrals: Physician,Unknown J [Primary Care Provider] - 5 days Discharge Date/Time: 09/22/24 11:03 Print Language: Italian
[2024-09-22 09:03] LABS: Beta-Hydroxybutyrate 0.11 mmol/L (0.02-0.27); Magnesium 1.8 mg/dL (1.6-2.6)
[2024-09-22 09:28] LABS: Glucose, Whole Blood 237 mg/dL (60-115)
--- NOTE | 2024-09-22 09:28 | ECG_ITS ---
Test Reason : cp Blood Pressure : */* mmHG Vent. Rate : 81 BPM Atrial Rate : 81 BPM P-R Int : 150 ms QRS Dur : 78 ms QT Int : 392 ms P-R-T Axes : 51 46 36 degrees QTcB Int : 455 ms Normal sinus rhythm Normal ECG No previous ECGs available Referred By: Eunice Valentine Electronically Signed By: TIMOTHY JANG MD
[2024-09-22 11:01] VITALS: BP 129/84; PULSE 80; RESP 14; TEMP 36.1; O2SAT 96
== END 2024-09-22 11:03 | disposition home or self-care (01) ==
PROVIDERS: Physician Assistant; Emergency Provider Emergency Medicine Emergency Medical Services
DX: E11.65 Type 2 diabetes mellitus with hyperglycemia (principal); E78.5 Hyperlipidemia, unspecified; Z86.73 Personal history of transient ischemic attack (TIA), and cerebral infarction without residual deficits; Z79.84 Long term (current) use of oral hypoglycemic drugs; Z79.899 Other long term (current) drug therapy; Z79.85 Long-term (current) use of injectable non-insulin antidiabetic drugs; Z85.3 Personal history of malignant neoplasm of breast
CPT/HCPCS: 36415; 80048; 80076; 82010; 82947; 83735; 85025; 93005; 96360; 96361; 99283; 99284

== ENCOUNTER → 2024-09-22 09:28 | Outpatient (BNV) | payer MEDICAID, SELFPAY | PROVIDERS: Emergency Provider Emergency Medicine Emergency Medical Services; Visit Provider Internal Medicine Cardiovascular Disease | DX: R07.9 Chest pain, unspecified (principal) | CPT/HCPCS: 93010 ==

== ENCOUNTER 2024-10-06 10:26 | Outpatient (AMB) | payer MEDICAID, SELFPAY ==
--- NOTE | 2024-10-06 11:10 | MHC.OFFVIS ---
Vital Signs 10/06/24 11:22 Height 5 ft 6 in Weight 157 lb BMI 25.3 BP 120/68 Blood Pressure Location Rt brachial Position Sitting Pulse 84 Intake Visit Reasons: HX of Bilateral Breast Cancer Intake Note: Patient referred for mass on Rt br. First noticed 2-3m. Hx of Rt br CA. Previously seen by Dr. Boyer. Patient c/o: painful with touch. 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: Yes Accompanied by: Self / Same As Patient Allergies acetaminophen (From Tylenol PM) Allergy (Verified 10/06/24 11:19) Difficulty Breathing aspirin Allergy (Verified 10/06/24 11:19) Itching bee pollen (bee stings) Allergy (Verified 10/06/24 11:19) Anaphylaxis codeine Allergy (Verified 10/06/24 11:19) Swelling diphenhydramine (From Tylenol PM) Allergy (Verified 10/06/24 11:19) Difficulty Breathing latex Allergy (Verified 10/06/24 11:19) Itching Penicillins Allergy (Verified 10/06/24 11:19) Rash HPI HPI HX of Bilateral Breast Cancer: Details: 53-year-old female with diabetes, asthma, history of NC, here because of a question of a right breast cancer. She has a history of nipple sparing mastectomy in [place] for invasive ductal carcinoma. in 2019 for invasive ductal carcinoma. She has been anastrozole x5 years . She apparently did not require adjuvant chemotherapy. She had been her Herceptin as well. She has prosthesis on the right breast for reconstruction. She went to the ER in July, because of warmth and tenderness of the right nipple-areolar area. He has she had an ultrasound showing irregular echogenic foci. She was therefore referred to me by Dr. Boyer. The patient is worried that she may have a cancer again on the right breast Her menarche was at the age of 12. Her 1st was the age of 20. She had 5 pregnancies. She says a maternal aunt had breast cancer her 40s. [facility] Medical History (Updated 10/06/24 @ 11:53 by Gary Gilbert MD) Induration of right breast Breast cancer Type 2 diabetes mellitus with diabetic polyneuropathy, with long-term current use of insulin Asthma Myocardial infarction Nonalcoholic fatty liver disease Hyperlipidemia Ovarian cyst History of stroke Surgical History Hx of tonsillectomy History of delivery H/O right mastectomy Family History Family/Other Breast cancer Maternal Aunt Breast cancer Maternal Grandmother Breast cancer Paternal Grandmother Breast cancer Social History Alcohol intake: former Patient Tobacco Use Status: Never used Tobacco Review of Systems Const Denies chills and Denies fever(s) Card Denies chest pain, Denies dyspnea and Denies dyspnea on exertion Resp Denies cough, Denies dyspnea and Denies dyspnea on exertion GI Denies hematochezia and Denies change in bowel habits Denies hematuria Musc Denies back pain and Denies limited range of motion Neuro Denies focal weakness and Denies convulsions Psych Denies depression and Denies mood swings Physical Exam Vital Signs: Last Vital Signs Pulse 84 10/06/24 11:22 BP 120/68 10/06/24 11:22 BMI result Body Mass Index 25.3 Const General: comfortable and no acute distress Orientation/consciousness: patient oriented x3 Neck Neck: Yes no lymphadenopathy Chest Other: Tenderness on the right nipple-areolar complex, no obvious mass, some thickening, procedures in place, no axillary lymphadenopathy, no palpable mass on the left breast Resp Auscultation: clear to auscultation bilaterally Cardio Rhythm: regular rhythm GI Palpation (GI): Soft to palpation, nontender and no guarding Neuro General: patient oriented x3 Assessment & Plan Assessment & Plan (1) Induration of right breast: Code(s): N64.51 - Induration of breast Category: Medical Plan: She has this warmth and induration although there is no palpable mass. She does have a prosthesis in place. I am going to order for an MRI of the right breast to rule out any mass. Her ultrasound does not suggest a cancer . I will see her again in the office after her MRI. Coding Level of Care Code New Pt Level 4 (16989) Diagnoses Induration of right breast N64.51
[2024-10-06 11:22] VITALS: BP 120/68; PULSE 84; BMI 25.3
--- OUTSIDE RECORDS SUMMARY | 2024-10-06 12:12 | XMS_ITS ---
Author Organization [employer] Address [address] [place] [address] [address] [place] [address] Care Team Providers Care Lease Purchase Truck Driver Name Role Phone Marguerite Sharp RN Unavailable [phone] Jahaira Hwang Unavailable Name, Burton RODRIGUEZ Primary Care Provider CHW Complex Status:Outreach In Progress (Enrolling) Start date:09/07/2024 Enrollment reason:C3 Manual Referral Overview Referral from C3 RN [facility]- Please see note dated 09/03/24. Coordinate YARN SKEINS EXAMINER appointment & enrollment into [facility] CM program chidi. Pt will need to come in person to sign CHELSIE [facility]. Please outreach for enrollment. Case Team Name Relationship Phone Jahaira Hwang(Responsible Staff) [phone] Continued Care and Services Coordination
== END 2024-10-06 11:48 | disposition home or self-care (01) ==
LOC: HO.HGS 10:27
PROVIDERS: PCP Internal Medicine Geriatric Medicine; Visit Provider Surgery
DX: N64.51 Induration of breast (principal)
CPT/HCPCS: 99204

== ENCOUNTER → 2024-10-06 10:26 | Outpatient (BNVA) | payer MEDICAID, SELFPAY | PROVIDERS: PCP Internal Medicine Geriatric Medicine; Visit Provider Surgery | DX: N64.51 Induration of breast (principal); Z85.3 Personal history of malignant neoplasm of breast | CPT/HCPCS: 99202 ==

== ENCOUNTER 2024-11-17 12:59 | Outpatient (REF) | payer MEDICAID, SELFPAY ==
--- NOTE | ~2024-11-17 | MR_ITS ---
EXAMINATION: MR BREAST WITHOUT AND WITH CONTRAST, BILATERAL CLINICAL INFORMATION: History of breast cancer right breast 2019 status post mastectomy 2019. COMPARISON: Comparison is made with relevant prior imaging. Ultrasound July 23, 2024 emergency department. Mammography left breast September 02, 2024. TECHNIQUE: MR imaging of the breast was performed using T1, T2 and fat saturated techniques. Dynamic multiphase imaging was also performed after the administration of intravenous gadolinium contrast agent. Computer generated 3D reconstruction and enhancement kinetic analysis was ulitized by the radiologist in the interpretation of this examination. FINDINGS: Breast composition: Heterogeneous fibroglandular breast tissue Background parenchymal enhancement: Moderate LEFT BREAST: No suspicious enhancing masses or areas of non mass enhancement. No axillary or internal mammary adenopathy. RIGHT BREAST: There is an irregular enhancing mass anteriorly involving the nipple measuring approximately 16 mm anterior to posterior by 22 mm transverse by 30 mm superior to inferior series 1050 image 69/122 series 28 image 58/228. This enhancing irregular mass abuts the anterior aspect of the implant. Patient is status post mastectomy with implant. There is a intact implant without evidence of intracapsular or extracapsular rupture. No axillary or internal mammary adenopathy. No other enhancing masses or areas of nonmass enhancement. Limited views of the chest and abdomen are unremarkable. MR/MR breast BI wo/w con IMPRESSION: Right: Irregular enhancing mass involving the skin and right nipple area measuring up to 30 mm. This area is not amenable to MRI core needle biopsy given location and proximity to the implant. Recommend breast surgical consultation and skin punch biopsy for pathologic and histologic confirmation, excision and further management. Left: Negative. ASSESSMENT: LEFT BREAST: BI-RADS 1-Negative RIGHT BREAST: BI-RADS 4-Suspicious RECOMMENDATIONS: Recommend breast surgical consultation at this time with possible skin punch biopsy for pathologic and histologic confirmation excision and further managment of suspicious enhancing right mass. Findings and recommendations communicated to Dr. Gilbert breast surgeon and Dr. Boyer. Electronically signed by: Deloris Pickard DO 11/19/2024 10:38 AM EDT
--- OUTSIDE RECORDS SUMMARY | 2024-11-17 13:33 | XMS_ITS | Clinical Summary ---
Author Organization [facility] Address [address] [place] [id number] Phone Care Team Providers Care Sponge Maker Name Role Phone Tatiana Taylor Primary Care Provider [phone] Allergies Active Allergy Reactions Criticality Noted Date [...] time each day before breakfast. 3 Active cholecalciferol (VITAMIN D-3) 50 mcg (2,000 unit) capsule TAKE 1 CAPSULE BY MOUTH EVERY DAY 90 capsule 1 5 Active Immunizations Name Administration Dates Next Due [facility] SARS-CoV-2 COVID-19, mRNA, LNP-S, preservative free 01/21/2023 [...] 2) 12/19/2019 Colorectal Cancer Screening: Colonoscopy 03/12/2022 Social Influencers of Health Screening 03/12/2022 COVID-19 Vaccine (2 - Pfizer risk series) 02/11/2023 01/21/2023 Depression Screening 04/14/2024 Influenza Vaccine (#1) 2024 Cervical Cancer Screening: HPV 12/27/2025 12/27/2020 [...] Health Maintenance Results * Lipid panel (03/10/2023) [facility] Triglycerides 0 mg/dL Comment:No interpretation, a bstracted Cholesterol 0 mg/dL Comment:No interpretation, a bstracted HDL 0 mg/dL Comment:No interpretation, a bstracted LDL Cholesterol 0 mg/dL Comment:No interpretation, a bstracted Blood Venous blood specimen / Unknown Result [facility] Provider LAB BLOOD ORDERABLES Hannah l Result * HIV Screening (07/10/2021) [facility] HIV Screening Abstracted Result [facility] Provider HEALTH MAINTENANCE Final Result * Hepatitis C Screening (07/10/2021) [facility] Hepatitis C Screening Abstracted Result [facility] Provider HEALTH MAINTENANCE Final Result * Cervical Cancer Screening: HPV (12/27/2020) [facility] Cervical Cancer Screening: HPV No interpretation , abstracted Result [facility] Provider HEALTH MAINTENANCE Final Result from Last 3 Months or Most Recently Relevant to Health Maintenance Insurance MEDICAID - [place] Care Teams Sponge Maker Relationship Specialty Start Date End Date Tatiana Taylor PA [address] [place] [address] PCP - General 12/10/22
--- OUTSIDE RECORDS SUMMARY | 2024-11-17 13:33 | XMS_ITS ---
Author Organization [employer] Address [address] [facility] [address] [place] [address] Care Team Providers Care Double Needle Operator Name Role Phone Marguerite Sharp RN Unavailable [phone] Jahaira Hwang Unavailable Name, Burton RODRIGUEZ Primary Care Provider [phone] CHW Complex Status:Outreach In Progress (Enrolling) Start date:09/07/2024 Enrollment reason:C3 Manual Referral Overview Referral from C3 RN [facility]- Please see note dated 09/03/24. Coordinate GEOLOGICAL TECHNICAL OFFICER appointment & enrollment into [facility] CM program chidi. [facility] Please outreach for enrollment. Case Team Name Relationship Phone Jahaira Hwang(Responsible Staff) [phone] Continued Care and Services Coordination
--- OUTSIDE RECORDS SUMMARY | 2024-11-17 13:33 | XMS_ITS | Patient Health Record ---
Author Organization [facility] Address [address] [place] [address] Care Team Providers Care Photovoltaic Power Systems Engineer Name Role Phone Jevon Macdonald MD Primary [...] W/U Status Risk Notes Problem Essential hypertension (86161383) Essential (primary) hypertension (I10) Active confirmed Problem Cerebral infarction due to embolism of precerebral arteries (620933867) Cerebral infarction due to embolism of unspecified carotid artery (I63.139) Active confirmed Problem Varicose veins of bilateral lower limbs ([id number]) Varicose veins of bilateral lower extremities [...] [employer] Medicaid [address] [facility] [place] [id number] Zeynep Martini Self - patient is the insured Medical (General) History Surgical History Surgery Date(Month/Year) four c section
--- OUTSIDE RECORDS SUMMARY | 2024-11-17 13:34 | XMS_ITS | Clinical Summary ---
Author Organization [facility] Address [address] [place] [address] Care Team Providers Care Transportation Economics Teacher Name Role Phone ManceraCharity Vaughan NP Primary Care Provider Source Comments PLEASE NOTE, if this patient is a minor, it may be UNLAWFUL to discuss sensitive information that is contained in these records (such as FAMILY PLANNING, MENTAL HEALTH or SUBSTANCE ABUSE) with the minor patient's parent or other person without the patient's specific authorization.[facility] Allergies Active Allergy Reactions Criticality Noted Date Comments Aspirin 07/09/2021 Codeine 07/09/2021 Tngvdlipwgzx-Swa-Udhzybxdbp hen 07/09/2021 Tylenol PM Diphenhydramine-Acetaminoph en 08/15/2022 Penicillins 07/09/2021 Pollen Extracts 03/10/2023 Environmental allergies to pollen, mold, some rugs, some mold, dust Propofol 07/09/2021 Pt reports reaction (irregular heart rhythm) after getting general anesthesia Medications blood pressure monitorIndications :Cerebrovascular accident (CVA), unspecified mechanism (CMS & HHS-HCC) Lifetime need 1 Kit 07/10/19 22 Active [...] seen for diabetic exam:01/07/2023 Provider:Randall Arias MD NPI#:[id number] 1 Each 1 01/15/20 23 Active VASCEPA [...] complication, without long-term current use of insulin ([facility]) TAKE 1 TABLET BY MOUTH ONCE DAILY [...] STOMACH 30 Tablet 5 04/20/19 25 Active blood sugar diagnostic (FREESTYLE LITE STRIPS) strips USE TO TEST FINGER STICK BLOOD SUGAR 3 (THREE) TIMES A DAY 100 Each 11 04/30/19 25 Active fluticasone (FLONASE) 50 mcg/actuation [...] complication, without long-term current use of insulin ([facility]) INJECT THE CONTENT OF 1 syringe SUBCUTANEOUSLY EACH WEEK 2 mL 2 06/10/19 Active loratadine (CLARITIN) 10 mg tablet Take 1 Tablet by mouth every morning. 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 ([facility]) 04/04/2022 Assessment & Plan (03/10/2024 10:59 AM EST): 2023: pt on chemo and medication Mild intermittent asthma ([facility]) 04/04/2022 Overweight 07/09/2021 Type 2 diabetes mellitus wit hout complication, without long-term current use of insulin ([facility]) 07/09/2021 History of malignant neoplasm of breast 07/10/19 Overview (12/04/2023): Next appt mar 2024 for bone density Currently on oral anastrozole. Sees Dr. Acevedo. Last seen 11/2022 Diagnosed in January 2019 in [place] Received chemotherapy in [place]. Currently on oral medication Diagnosed in January 2019 in [place] Received chemotherapy in [place]. Currently on oral medication H/O right mastectomy 07/09/2021 Status post right breast reconstruction 07/10/19 Hyperlipidemia 07/09/2021 Cerebrovascular accident (CVA) ([facility]) 0 07/09/2021 Overview (12/04/2023): Reports x 2, first in 2018, she needed eye surgery due to hemmorhagic stroke it appears, then also in 2019 she had another on which occurred during the breast surgery. History of myocardial infarction 09/20/2020 Overview (11/04/2022): 2013, 2019 per prior medical record Encounters Date Type Department Care Team Description 09/03/2024 Interim Notes [address] [phone] Moss, Catherine, Community Health Worker from Last 3 Months Immunizations Immunization Administration Dates Next Due Flu, Preservative Free 01/21/2023,2021,01/24/2021,03/15 Hep B,adult,adjuvanted (HEPLISAV) 12/09/2022, INFLUENZA, SEASONAL, INJECTABLE 01/12/2021 Influenza (FLUBLOK),recombinant,injectable,prese rvative Free 03/10/2024 CARISSA COVID-19 VACCINE 06/28/2020 PFIZER COVID VACCINE, PURPLE CAP, 12+ 05/02/2021 PNEUMOCOCCAL CONJUGATE PCV 2 0 (Prevnar 20) 11/04/2022 PNEUMOCOCCAL POLYSACCHARIDE PPV23 (Pneumovax 23) 10/03/2011 Pfizer COVID-19 (Comirnaty), Mrna, Lnp-s, Pf, Rodger-sucrose, 30 Mcg/0.3 Ml, 12yr+ 01/21/2023 TDAP 03/27/2022,09/10/2007 Td (adult),2 Lf tetanus toxo id (TDVAX), preservative free 12/13/1998 ZOSTER VACCINE, RECOMBINANT (SHINGRIX) 2,10/03/2020 Social History Tobacco Use Types Packs/Day Years Used Date Smoking Tobacco: Former Cigarettes Smokeless Tobacco: Never Comments:when younger Alcohol Use Standard Drinks/Week Comments Not Currently 0 (1 standard drink = 0.6 oz pur e alcohol) Social Connections Answer Date Recorded How often do you feel lonely or isolated from th ose around you? 1 03/10/2024 Financial Resource Strain Answer Date R ecorded Hard to pay for: Food 1 03/10/2024 Stress Answer Date Recorded Do you feel these kinds of stress these days? 1 03/10/2024 Physical Activity Answer Date Recorded Physical Activity 0 11/01/2022 Food Insecurity Answer Date Recorded Hard to pay for: Food 1 03/10/2024 Transportation Needs Answer Date Record ed Hard to pay for: Transportation 1 03/10/2024 Housing Stability Answer Date Recorded Hard to pay for: Rent/Mortgage payment 1 03/10/2024 Safety and Environment Answer Date Austen rded Safety 0 11/01/2022 Utilities Answer Date Recorded Hard to pay for: Utilities 1 03/10 Employment Answer Date Recorded Stress 0 11/01/2022 [...] 96 04/02/2024 1:24 PM EST Temperature 36.7 C (98 F) 03/15/2024 3:07 PM EST Respiratory Rate 16 04/02/2024 1:24 PM EST Oxygen Saturation 100% 04/02/2024 1:24 PM EST Inhaled Oxygen Concentration - - Weight 72.1 kg (159 lb) 04/02/2024 1:24 PM EST Height 165.1 cm (5' 5 ) 04/02/2024 1:24 PM EST Body Mass Index 26.46 04/02/2024 1:24 PM EST Plan of Treatment Health Maintenance Due Date Last Done Comments HPV Screening 1969 CT Colonography 2014 Colonoscopy 2014 Fecal DNA 2014 Flexible Sigmoidoscopy 2014 Retinopathy Screening 11/13/2022 11/13/2021 Breast Cancer Screening (Mammogram) 09/18/2023 09/17/2022, 09/13/2021, 09/13/2021, Additional history exists [id number] ( season) 2023 01/21/2023, 05/02/2021, 06/28/2020 Colorectal Cancer Screening 01/22/2024 FIT/gFOBT 01/22/2024 01/21/2023 Dental Prophy 01/30/2024 07/29/2023, 01/27/2023 Alcohol and Drug Screen 04/14/2024 03/10/20 24, 05/09/2023, 11/04/2022, Additional history exists Depression Annual Screen 04/14/2024 03/10/2024 Hemoglobin A1c 05/13/2024 11/11/2023, 02/13, 03/10/2023, Additional history exists Dental BW 07/30/2024 07/29/2023, 01/27/2023 Dental Examination 07/30/2024 07/29/2023, 01/27/2023 Dental Perio Charting 07/30/2024 07/29/2023 Diabetes Foot Exam 10/02/2024 10/03/2023, 0 01/07/2023, 11/04/2022 Urine Albumin Creatinine Rat io Screening 11/10/2024 11/11/2023, 11/03/2022, 07/10/2021 Imm-Influenza (#1) 2024 03/10/2024, 1 , 03/27/2022, Additional history exists Annual Wellness (Adult): Indicated (All Coverage) 03/10/2025 03/10/2024, 03/10/2023, 11/04/2022, Additional history exists Anxiety Screening 03/10/2025 03/10/2024 Lipid Screening 03/10/2025 03/10/2024, 02/13, 03/10/2023, Additional [...] 07/10/2021 Hepatitis C Screening Completed 07/10/2021 Imm-Pneumococcal 50+ Completed 11/04/2022, 10/03/19 12 Imm-Hepatitis B Completed 12/09/2022, 11/04/2022 Bone Density Screening Completed , 12/19/2022, 12/19/2022 Cervical Ablation/Cold-Knife Conization Discontinued Cervical Cryotherapy Discontinued [...] EST Routine general medical examination at a [facility] care facility LIPID PANEL Routine 03/10/2024 11:21 AM EST Routine general medical examination at a [facility] facility MICROALBUMIN/CREATININE RATIO, URINE, RANDOM Routine 11/11/2023 10:11 AM EDT Type 2 diabetes mellitus without complication, without long-term current use of insulin ([facility]) HGBA1C W/MPG Routine 11/11/2023 10:11 AM EDT Type 2 diabetes mellitus without complication, without long-term current use of insulin ([facility]) COMP PERIODONTAL EVALUATION - NEW/EST PATIENT Routine [...] HPV MRNA E6/E7 Not Detected Not Detected [employer] Comment: Methodology: Document Imaging Specialist-Mediated Amplification This assay detects E6/E7 viral messenger RNA (mRNA) from 14 high-risk HPV types (16,18,31,33,35,39,45,51,52,56,58,59,66,68). Cervical sources are required for HPV testing. If a vaginal source from a patient who has had a total hysterectomy with removal of cervix was submitted, please contact the testing laboratory for alternative testing options. For additional information, please refer to http://education.[employer] Nile/faq/CVG792e4 (This link if provided for information/ educational purposes only.) CLINICAL INFORMATION See Note [employer] Comment:Postmenopausal LMP See Note [employer] Comment:NONE GIVEN PREV. PAP See Note [employer] Comment:NONE GIVEN PREV. BX See Note [employer] Comment:NONE GIVEN SOURCE See Note [employer] Comment:Cervix STATEMENT OF ADEQUACY See Note [employer] Comment:SATISFACTORY FOR XIAO LUATION INTERPRETATION/RESU LT See Note [employer] Comment: Cytology Results: Negative for intraepithelial lesion or malignancy. Atrophic pattern; predominantly parabasal cells COMMENT See Note [employer] Comment: This Pap test has been evaluated with computer assisted technology. ACCOUNT STRATEGIST See Note [employer] Comment: RK, CT(ASCP) CT screening location: [address] [address] COMMENT [employer] Swab Cervix uteri structure / Unknown 04/02/2024 1:57 PM EST 04/06/2024 2:48 AM EST Narrative [facility] - 04/09/2024 1:30 PM EST EXPLANATORY NOTE: [...] information. us Shiv Dennis MD LAB - PATHOLOGY AND CYTOLOGY AM BULATORY Final Result [facility] [employer] [address] [place] [address], [facility] [place] [facility] [address] [place] [phone] * (ABNORMAL) LIPID PANEL (03/10/2024 11:21 AM EST) CHOLESTEROL, TOTAL 302(H) <200 mg/dL [facility] HDL CHOLESTEROL 37(L) > OR = 50 mg/dL [facility] TRIGLYCERIDES 454(H) <150 mg/dL [employer] Comment: If a non-fasting specimen was collected, consider repeat triglyceride testing on a fasting specimen if clinically indicated. Yemi et al. J. of Clin. Lipidol. 2015;9:129-169. LDL-CHOLESTEROL See Note [employer] Comment: LDL cholesterol not calculated. Triglyceride levels greater than 400 mg/dL invalidate calculated LDL results. Reference range: <100 Desirable range <100 mg/dL for primary prevention; <70 mg/dL for patients with CHD or diabetic patients with > or = 2 CHD risk factors. LDL-C is now calculated using the Yordan calculation, which is a validated novel method providing better accuracy than the Friedewald equation in the estimation of LDL-C. Oleksandr NASCIMENTO et al. WEN. 2013;310(19): 9537-2914 (http://education.[employer]/faq/STE077) CHOL/HDLC RATIO 8.2(H) <5.0 (calc) [employer] NON-HDL CHOLESTEROL 265(H) <130 mg/dL (calc) [employer] Comment: Non-HDL level > or = 220 [...] AM EST 03/10/2024 11:22 AM EST Narrative [employer] [facility] - 03/11/2024 4:27 AM EST FASTING:NO us Charity Mancera NP LAB - BLOOD DRAW Final Resul t [employer] [address] [address], [facility] [address] [address] * (ABNORMAL) COMPREHENSIVE METABOLIC PANEL (03/10/2024 11:21 AM EST) GLUCOSE 179(H) 65 - 139 mg/dL [facility] Comment: Non-fasting reference interval UREA NITROGEN (BUN) 16 7 - 25 mg/dL [facility] CREATININE (blood) 0.81 0.50 - 1.03 mg/dL [facility] EGFR 86 > OR = 60 mL/min/1. 73m2 [employer] BUN/CREATININE RATIO SEE NOTE: [employer] Comment: Not Reported: BUN and Creatinine are within reference range. SODIUM 140 135 - 146 mmol/L [employer] POTASSIUM 4.2 3.5 - 5.3 mmol/L [employer] CHLORIDE 104 98 - 110 mmol/L [employer] CARBON DIOXIDE 26 20 - 32 mmol/L [employer] CALCIUM 9.8 8.6 - 10.4 mg/dL [employer] PROTEIN, TOTAL 7.3 6.1 - 8.1 g/dL [employer] ALBUMIN 4.5 3.6 - 5.1 g/dL [employer] GLOBULIN 2.8 1.9 - 3.7 g/dL (calc) [employer] ALBUMIN/GLOBULI N RATIO 1.6 1.0 - 2.5 (calc) [facility] BILIRUBIN, TOTAL 0.4 0.2 - 1.2 mg/dL [facility] ALKALINE PHOSPHATASE 79 37 - 153 U/L [employer] [facility] AST 18 10 - 35 U/L [facility] ALT 30(H) 6 - 29 U/L [facility] Blood Blood / Unknown 03/10/2024 1 1:21 AM EST 03/10/2024 11:22 AM EST Narrative [employer] [facility] - 03/11/2024 4:27 AM EST FASTING:NO Charity Mancera COLLEGE OR UNIVERSITY BUSINESS MANAGER LAB - BLOOD DRAW Final Resul t Performing Organization Address City/[facility]/ZIP Co de Phone Number [employer] [address] [address], [facility] [address] [address] * (ABNORMAL) HGBA1C W/MPG (11/11/2023 10:11 AM EDT) HEMOGLOBIN A1C 6.8(H) <5.7 % of total Hgb [facility] Comment: For someone without known diabetes, a [...] A1c for diagnosis of diabetes for children. MEAN PLASMA GLUCOSE 165 mg/dL (calc) [facility] Blood Blood / Unknown 11/11/2023 1 0:11 AM EDT 11/11/2023 10:11 AM EDT Narrative [employer] [facility] [employer] [facility] - 11/12/2023 3:36 PM EDT FASTING:NO Christopher Swift PharmD LAB - BLOOD D RAW Edited Result - Final [employer] [address] [address], [facility] [address] [address] * MICROALBUMIN/CREATININE RATIO, URINE, RANDOM (11/11/2023 10:11 AM EDT) CREATININE, RANDOM URINE 57 20 - 275 mg/dL [facility] MICROALBUMIN 1.5 mg/dL [facility] Comment: Reference Range Not established MICROALBUMIN/CREA TININE RATIO, RANDOM URINE 26 <30 mg/g creat [facility] Comment: The ADA defines abnormalities in albumin excretion as follows: Albuminuria Category Result (mg/g creatinine) Normal to Mildly increased <30 Moderately increased 30-299 Severely increased > OR = 300 The ADA recommends that at least two of three specimens collected within a 3-6 month period be abnormal before considering a patient to be within a diagnostic category. Urine Urine specimen / Unknown 11/11/2023 10:11 AM EDT 11/11/2023 10:11 AM EDT Narrative [facility] - 11/12/2023 3:36 PM EDT FASTING:NO Christopher McguireD LAB URINE AMB ULATORY Final Result Performing Organization Address City/State/[facility] Co de Phone Number [facility] [address] [address], [facility] [address] [phone] * FECAL GLOBIN BY IMMUNOCHEMISTRY (FIT) (01/21/2023 8:00 PM EDT) Pathologist [facility] FECAL GLOBIN BY IMMUNOCHEMISTRY See Note [facility] Comment: FECAL GLOBIN BY IMMUNOCHEMISTRY Micro Number: [id number] Test Status: Final Specimen Source: Insure (tm) fobt test card Specimen Quality: Adequate Fecal Globin: Not Detected Stool Stool specimen / Unknown 01/21/2023 8:00 PM EDT 01/23/2023 4:16 AM EDT Corin YIN LAB BODY FLUIDS AND STOOLS AMBU LATORY Final Result [facility] [address] [address], [employer] [address] [place] [address] * HISTORIC DEXA SCAN (12/19/2022 3:00 AM EDT) 12/19/2022 3:00 AM EDT Negin Ray MARBLE INSTALLER SUPERVISOR-C IMG DXA Edited Resul t - Final * HISTORIC MAMMOGRAM (09/17/2022 3:00 AM EDT) 09/17/2022 3:00 AM EDT Negin Ray DHALIWALP-C IMG MAMMO Final Result * REFERRAL TO OPHTHALMOLOGY (11/13/2021 3:00 AM EDT) 11/13/2021 3:00 AM EDT Negin Ray MARBLE INSTALLER SUPERVISOR-C REFERRAL Final Result * HEPATITIS C AB W/RFLX HCV RNA, QT, RT PCR (07/10/2021 10:04 AM EDT) HEPATITIS C ANTIBODY NON-REACT KIARA NON-REACT KIARA [facility] SIGNAL TO CUT-OFF 0.01 <1.00 [facility] Comment: HCV antibody was non-reactive. There is no laboratory evidence of HCV infection. In most cases, no further action is required. However, if recent HCV exposure is suspected, a test for HCV RNA (test code 04710) is suggested. For additional information please refer to http://education.[employer]/faq/OJV57n5 (This link is being provided for informational/ educational purposes only.) Blood Blood / Unknown 07/10/2021 1 0:04 AM EDT 07/10/2021 10:05 AM EDT Narrative [facility] - 07/10/2021 9:47 PM EDT FASTING:YES Negin Bell MARBLE INSTALLER SUPERVISOR-C LAB - BLOOD DRAW Final Resul t [facility] [address] [address], [facility] [address],[facility] [address] * HIV 1/2 AG & AB W/RFLX (4TH GEN) (07/10/2021 10:04 AM EDT) HIV AG/AB, 4TH GEN NON-REAC TIVE NON-REAC TIVE [facility] Comment: HIV-1 antigen and HIV-1/HIV-2 antibodies were not detected. There is no laboratory evidence of HIV infection. PLEASE NOTE: This information has been disclosed to you from records whose confidentiality may be protected by state law. If your state requires such protection, then the state law prohibits you from making any further disclosure of the information without the specific written consent of the person to whom it pertains, or as otherwise permitted by law. A general authorization for the release of medical or other information is NOT sufficient for this purpose. For additional information please refer to http://education.[employer]/faq/NAZ506 (This link is being provided for informational/ educational purposes only.) The performance of this assay has not been clinically validated in patients less than 2 years old. Blood Blood / Unknown 07/10/2021 1 0:04 AM EDT 07/10/2021 10:05 AM EDT Narrative [employer] [facility] - 07/10/2021 9:47 PM EDT FASTING:YES Negin Bell MARBLE INSTALLER SUPERVISOR-C LAB - BLOOD DRAW Final Resul t [facility] [address] [address], [facility] [address],[facility] [place] [address] from Last 3 Months or Most Recently Relevant to Health Maintenance Insurance [place] [address] [facility] Medicaid Address: [facility] [id number] [place] [address] Care Teams Transportation Economics Teacher Relationship Specialty Start Date End Date Charity Mancera NP [address] [place] [address] PCP - General Internal Medicine 05/09/23
== END 2024-11-17 13:00 | disposition home or self-care (01) ==
LOC: HO.MRI 12:59
PROVIDERS: Visit Provider Surgery
DX: N64.51 Induration of breast (principal); C50.919 Malignant neoplasm of unspecified site of unspecified female breast
CPT/HCPCS: 77049; A9585

== ENCOUNTER → 2024-11-17 13:15 | Outpatient (BNV) | payer MEDICAID, SELFPAY | PROVIDERS: Visit Provider Internal Medicine | DX: N63.41 Unspecified lump in right breast, subareolar (principal) | CPT/HCPCS: 77049 ==

== ENCOUNTER 2024-12-01 13:14 | Outpatient (AMB) | payer MEDICAID, SELFPAY ==
--- NOTE | 2024-12-01 13:23 | A.OFFVIS_ITS ---
Vital Signs 12/01/24 13:27 Height 5 ft 6 in Weight 152 lb BMI 24.5 BP 128/60 Blood Pressure Location Lt brachial Position Sitting Pulse 90 Intake Visit Reasons: s/p MRI results Intake Note: Patient here s/p MRI 11-17-2024 results. Dumpling Machine Operator Required: No Accompanied by: Self / Same As Patient Allergies acetaminophen (From Tylenol PM) Allergy (Verified 12/01/24 13:23) Difficulty Breathing aspirin Allergy (Verified 12/01/24 13:23) Itching bee pollen (bee stings) Allergy (Verified 12/01/24 13:23) Anaphylaxis codeine Allergy (Verified 12/01/24 13:23) Swelling diphenhydramine (From Tylenol PM) Allergy (Verified 12/01/24 13:23) Difficulty Breathing latex Allergy (Verified 12/01/24 13:23) Itching Penicillins Allergy (Verified 12/01/24 13:23) [facility] History (Updated 10/06/24 @ 11:53 by Gayr Gilbert MD) Induration of right breast Breast cancer Type 2 diabetes mellitus with diabetic polyneuropathy, with long-term current use of insulin Asthma Myocardial infarction Nonalcoholic fatty liver disease Hyperlipidemia Ovarian cyst History of stroke Surgical History Hx of tonsillectomy History of delivery H/O right mastectomy Family History Family/Other Breast cancer Maternal Aunt Breast cancer Maternal Grandmother Breast cancer Paternal Grandmother Breast cancer Social History Alcohol intake: former Patient Tobacco Use Status: Never used Tobacco Coding
--- NOTE | 2024-12-01 13:23 | MHC.OFFVIS ---
Vital Signs 12/01/24 13:27 Height 5 ft 6 in Weight 152 lb BMI 24.5 BP 128/60 Blood Pressure Location Lt brachial Position Sitting Pulse 90 Intake Visit Reasons: s/p MRI results Allergies acetaminophen (From Tylenol PM) Allergy (Verified 12/01/24 13:23) Difficulty Breathing aspirin Allergy (Verified 12/01/24 13:23) Itching bee pollen (bee stings) Allergy (Verified 12/01/24 13:23) Anaphylaxis codeine Allergy (Verified 12/01/24 13:23) Swelling diphenhydramine (From Tylenol PM) Allergy (Verified 12/01/24 13:23) Difficulty Breathing latex Allergy (Verified 12/01/24 13:23) Itching Penicillins Allergy (Verified 12/01/24 13:23) Rash Medication List - Last Reconciled 12/01/24 by Gary Gilbert MD albuterol sulfate 90 mcg/actuation (Ventolin HFA) 2 puffs inhalation Q6H PRN anastrozole 1 mg PO DAILY cephalexin 500 mg PO TID 7 days cholecalciferol (vitamin D3) 25 mcg PO DAILY clindamycin HCl 300 mg PO BID 10 days clindamycin HCl 300 mg PO TID dulaglutide (Trulicity) 0.75 mg subcut QWEEK epinephrine 0.3 mg IM NEEDED PRN gabapentin 1 cap PO BEDTIME PRN ipratropium bromide 18 mcg/actuation 2 puffs inhalation BID PRN loratadine 1 tab PO DAILY metformin 1 tab PO BID nitroglycerin 1 tab sublingual NEEDED omeprazole 1 cap PO DAILY pantoprazole 1 tab PO QAM HPI HPI s/p MRI results: Details: She is here for follow-up for an MRI of the right breast. She has had this induration on the nipple-areolar complex. She describes some drainage as well and some ulceration. She does have a history of right breast cancer in the past. She had a mastectomy with implants in 2019 in [place]. He did not require chemotherapy at that time. [facility] Medical History Induration of right breast Breast cancer Type 2 diabetes mellitus with diabetic polyneuropathy, with long-term current use of insulin Asthma Myocardial infarction Nonalcoholic fatty liver disease Hyperlipidemia Ovarian cyst History of stroke Surgical History Hx of tonsillectomy History of delivery H/O right mastectomy Family History Family/Other Breast cancer Maternal Aunt Breast cancer Maternal Grandmother Breast cancer Paternal Grandmother Breast cancer Social History Alcohol intake: former Patient Tobacco Use Status: Never used Tobacco Review of Systems Const Denies chills and Denies fever(s) Card Denies chest pain GI Denies abdominal pain Physical Exam Const General: comfortable and no acute distress Chest Other: Right breast shows vague induration in the nipple-areolar complex mostly laterally with some ulceration nipple itself with scanty drainage Resp Effort & Inspection: normal respiratory effort GI Palpation (GI): Soft to palpation Office Procedures Punch Biopsy Details: She was in reclining position. The area of the induration on the nipple-areolar complex was prepped and draped. Lidocaine 1% was used for local anesthesia. I used a 4 mm punch biopsy to sample tissue involved the skin and underlying tissue in the nipple-areolar complex. A good amount of specimen was taken. Dressings were applied. She tolerated procedure well. There were no immediate complications. Informed consent given: Yes Anesthesia: 1% lidocaine Assessment & Plan Assessment & Plan (1) Induration of right breast: Code(s): N64.51 - Induration of breast Category: Medical Plan: Her MRI shows this irregular enhancing mass anteriorly involving the nipple measuring 16 mm x 22 mm by 30 mm. This abuts the anterior aspect of the implant In view of this along with a history of breast cancer, I have recommended proceeding with punch biopsy. I explained the technique of this procedure as well as the risks, benefits, and alternatives and she had given consent Punch biopsy was done here in the office under local anesthesia. She tolerated procedure well I instructed to take Tylenol and ibuprofen p.r.n. for pain I will see her in the office next week to discuss the path report. Coding Level of Care Code Est Pt Level 3 (73191) Diagnoses Induration of right breast N64.51
[2024-12-01 13:27] VITALS: BP 128/60; PULSE 90; BMI 24.5
--- OUTSIDE RECORDS SUMMARY | 2024-12-01 14:07 | XMS_ITS | Clinical Summary ---
Author Organization [facility] Address [address] [place] [phone] Phone Care Team Providers Care Clerk Guide Name Role Phone Tatiana Taylor Primary Care Provider [phone] Allergies Active Allergy Reactions Criticality Noted Date [...] Active Immunizations Name Administration Dates Next Due [facility] SARS-CoV-2 COVID-19, mRNA, LNP-S, preservative free [...] Health Maintenance Results * Lipid panel (03/10/2023) [facility] Triglycerides 0 mg/dL Comment:No interpretation, a bstracted Cholesterol 0 mg/dL Comment:No interpretation, a bstracted HDL 0 mg/dL Comment:No interpretation, a bstracted LDL Cholesterol 0 mg/dL Comment:No interpretation, a bstracted Blood Venous blood specimen / Unknown Result [facility] Provider LAB BLOOD ORDERABLES Hannah l Result * HIV Screening (07/10/2021) [facility] HIV Screening Abstracted Result [facility] Provider HEALTH MAINTENANCE Final Result * Hepatitis C Screening (07/10/2021) [facility] Hepatitis C Screening Abstracted Result [facility] Provider HEALTH MAINTENANCE Final Result * Cervical Cancer Screening: HPV (12/27/2020) [facility] Cervical Cancer Screening: HPV No interpretation , abstracted Result [facility] Provider HEALTH MAINTENANCE Final Result from Last 3 Months or Most Recently Relevant to Health Maintenance Insurance MEDICAID - [place] Care Teams Clerk Guide Relationship Specialty Start Date End Date Tatiana Taylor PA [address] [place] [address] PCP - General 12/10/22
--- OUTSIDE RECORDS SUMMARY | 2024-12-01 14:07 | XMS_ITS ---
Author Organization [facility] Address [address] [address] [facility] [address] [place] [address] Care Team Providers Care Health Unit Coordinator Name Role Phone Marguerite Sharp RN Unavailable [phone] Jahaira Hwang Unavailable Name, Burton RODRIGUEZ Primary Care Provider [phone] [facility] Complex Status:Enrolled (Active) Start date:09/07/2024 Enrollment date:11/23/2024 Enrollment reason:C3 Manual Referral Overview Referral from C3 RN [facility]- Please see note dated 09/03/24. Coordinate WARDROBE CONSULTANT appointment & enrollment into [facility] CM program chidi. Pt will need to come in person to sign [facility] Please outreach for enrollment. Case Team Name Relationship Phone Jahaira Hwang(Responsible Staff) [phone] Continued Care and Services Coordination
--- OUTSIDE RECORDS SUMMARY | 2024-12-01 14:08 | XMS_ITS | Patient Health Record ---
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
--- OUTSIDE RECORDS SUMMARY | 2024-12-01 14:08 | XMS_ITS | Clinical Summary ---
Author Organization [facility] Address [address] [place] [address] Care Team Providers Care Nailer Machine Name Role Phone ManceraCharity Vaughan NP Primary [...] Noted Date Comments Aspirin 07/09/2021 Codeine 07/09/2021 Vopmbovqdqhk-Eqh-Sgyzankiit hen 07/09/2021 Tylenol PM Diphenhydramine-Acetaminoph en 08/15/2022 [...] seen for diabetic exam:01/07/2023 Provider:Randall Arias MD NPI#:[id number] 1 Each 1 01/15/20 23 Active VASCEPA [...] complication, without long-term current use of insulin ([facility]) TAKE 1 TABLET BY MOUTH ONCE DAILY [...] complication, without long-term current use of insulin ([facility]) INJECT THE CONTENT OF 1 syringe SUBCUTANEOUSLY EACH WEEK 2 mL 2 06/10/19 Active loratadine (CLARITIN) 10 mg tablet Take 1 Tablet by mouth every morning. 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 ([facility]) 04/04/2022 Assessment & Plan (03/10/2024 10:59 AM EST): 2023: pt on chemo and medication Mild intermittent asthma ([facility]) 04/04/2022 Overweight 07/09/2021 Type 2 diabetes mellitus wit hout complication, without long-term current use of insulin ([facility]) 07/09/2021 History of malignant neoplasm of breast 07/10/19 Overview (12/04/2023): Next appt mar 2024 for bone density Currently on oral anastrozole. Sees Dr. Acevedo. Last seen 11/2022 Diagnosed in January 2019 in [place] Received chemotherapy in [place]. Currently on oral medication Diagnosed in January 2019 in [place] Received chemotherapy in [place]. Currently on oral medication H/O right mastectomy 07/09/2021 Status post right breast reconstruction 07/10/19 Hyperlipidemia 07/09/2021 Cerebrovascular accident (CVA) ([facility]) 0 07/09/2021 Overview (12/04/2023): Reports x 2, first in 2018, she needed eye surgery due to hemmorhagic stroke it appears, then also in 2019 she had another on which occurred during the breast surgery. History of myocardial infarction 09/20/2020 Overview (11/04/2022): 2013, 2019 per prior medical record Encounters Date Type Department Care Team Description 09/03/2024 Interim Notes [address] [id number] Moss, Catherine, Community Health Worker from Last [...] 09/18/2023 09/17/2022, 09/13/2021, 09/13/2021, Additional history exists [id number] ( season) 2023 01/21/2023, 05/02/2021, 06/28/2020 Colorectal [...] EST Routine general medical examination at a [facility] care facility LIPID PANEL Routine 03/10/2024 11:21 AM EST Routine general medical examination at a [facility] facility MICROALBUMIN/CREATININE RATIO, URINE, RANDOM Routine 11/11/2023 10:11 AM EDT Type 2 diabetes mellitus without complication, without long-term current use of insulin ([facility]) HGBA1C W/MPG Routine 11/11/2023 10:11 AM EDT Type 2 diabetes mellitus without complication, without long-term current use of insulin ([facility]) COMP PERIODONTAL EVALUATION - NEW/EST PATIENT [...] HPV MRNA E6/E7 Not Detected Not Detected [facility] Comment: Methodology: Refueler-Mediated Amplification This assay detects E6/E7 viral messenger RNA (mRNA) from 14 high-risk HPV types (16,18,31,33,35,39,45,51,52,56,58,59,66,68). Cervical sources are required for HPV testing. If a vaginal source from a patient who has had a total hysterectomy with removal of cervix was submitted, please contact the testing laboratory for alternative testing options. For additional information, please refer to http://education.[employer]/faq/AOD226h5 (This link if provided for information/ educational purposes only.) CLINICAL INFORMATION See Note [facility] Comment:Postmenopausal LMP See Note [facility] Comment:NONE GIVEN PREV. PAP See Note [facility] Comment:NONE GIVEN PREV. BX See Note [facility] Comment:NONE GIVEN SOURCE See Note [facility] Comment:Cervix STATEMENT OF ADEQUACY See Note [facility] Comment:SATISFACTORY FOR XIAO LUATION INTERPRETATION/RESU LT See Note [facility] Comment: Cytology Results: Negative for intraepithelial lesion or malignancy. Atrophic pattern; predominantly parabasal cells COMMENT See Note [facility] Comment: This Pap test has been evaluated with computer assisted technology. UNDERWRITER SOLICITATION DIRECTOR See Note [employer] Comment: RK, CT(ASCP) CT screening location: [address] [address] COMMENT [facility] Swab Cervix uteri structure / Unknown 04/02/2024 1:57 PM EST 04/06/2024 2:48 AM EST Narrative [facility] - 04/09/2024 1:30 PM EST EXPLANATORY NOTE: [...] PATHOLOGY AND CYTOLOGY AM BULATORY Final Result [email or web address] [place] [facility] [address] [place] [address], [email or web address] [place] [facility] [address] [place] [phone] * (ABNORMAL) LIPID PANEL (03/10/2024 11:21 AM EST) CHOLESTEROL, TOTAL 302(H) <200 mg/dL [facility] HDL CHOLESTEROL 37(L) > OR = 50 mg/dL [facility] TRIGLYCERIDES 454(H) <150 mg/dL [facility] Comment: If a non-fasting specimen was collected, consider repeat triglyceride testing on a fasting specimen if clinically indicated. Yemi et al. J. of Clin. Lipidol. 2015;9:129-169. LDL-CHOLESTEROL See Note QUES [employer] Comment: LDL cholesterol not calculated. Triglyceride levels [...] LDL-C. Oleksandr NASCIMENTO et al. WEN. 2013;310(19): 3964-5568 (http://education.[employer]/faq/YPM646) CHOL/HDLC RATIO 8.2(H) <5.0 (calc) [facility] NON-HDL CHOLESTEROL 265(H) <130 mg/dL (calc) [facility] Comment: Non-HDL level > or = 220 [...] AM EST 03/10/2024 11:22 AM EST Narrative [facility] - 03/11/2024 4:27 AM EST FASTING:NO us Charity Mancera NP LAB - BLOOD DRAW Final Resul t [facility] [address] [address], [facility] [address] [address] * (ABNORMAL) COMPREHENSIVE METABOLIC PANEL (03/10/2024 11:21 AM EST) GLUCOSE 179(H) 65 - 139 mg/dL [facility] Comment: Non-fasting reference interval UREA NITROGEN (BUN) 16 7 - 25 mg/dL [facility] CREATININE (blood) 0.81 0.50 - 1.03 mg/dL [facility] EGFR 86 > OR = 60 mL/min/1. 73m2 [facility] BUN/CREATININE RATIO SEE NOTE: [facility] Comment: Not Reported: BUN and Creatinine are within reference range. SODIUM 140 135 - 146 mmol/L [facility] POTASSIUM 4.2 3.5 - 5.3 mmol/L [facility] CHLORIDE 104 98 - 110 mmol/L [facility] CARBON DIOXIDE 26 20 - 32 mmol/L [facility] CALCIUM 9.8 8.6 - 10.4 mg/dL [facility] PROTEIN, TOTAL 7.3 6.1 - 8.1 g/dL [facility] ALBUMIN 4.5 3.6 - 5.1 g/dL [facility] GLOBULIN 2.8 1.9 - 3.7 g/dL (calc) [facility] ALBUMIN/GLOBULI N RATIO 1.6 1.0 - 2.5 (calc) [email or web address] BILIRUBIN, TOTAL 0.4 0.2 - 1.2 mg/dL [email or web address] ALKALINE PHOSPHATASE 79 37 - 153 U/L [facility] AST 18 10 - 35 U/L [email or web address] ALT 30(H) 6 - 29 U/L [email or web address] Blood Blood / Unknown 03/10/2024 1 1:21 AM EST 03/10/2024 11:22 AM EST Narrative [facility] [employer] - 03/11/2024 4:27 AM EST FASTING:NO Charity Mancera RETENTION MANAGER LAB - BLOOD DRAW Final Resul t Performing Organization Address City/[facility]/ZIP Co de Phone Number [facility] [address] [address], [email or web address] [address] [address] * (ABNORMAL) HGBA1C W/MPG (11/11/2023 10:11 AM EDT) HEMOGLOBIN A1C 6.8(H) <5.7 % of total Hgb [facility] Comment: For someone without known diabetes, [...] children. MEAN PLASMA GLUCOSE 165 mg/dL (calc) [facility] Blood Blood / Unknown 11/11/2023 1 0:11 AM EDT 11/11/2023 10:11 AM EDT Narrative [facility] [employer] [facility] - 11/12/2023 3:36 PM EDT FASTING:NO Christopher Swift PharmD LAB - BLOOD D RAW Edited Result - Final [facility] [address] [address], [email or web address] [address] [address] * MICROALBUMIN/CREATININE RATIO, URINE, RANDOM (11/11/2023 10:11 AM EDT) CREATININE, RANDOM URINE 57 20 - 275 mg/dL [email or web address] MICROALBUMIN 1.5 mg/dL [facility] Comment: Reference Range Not established MICROALBUMIN/CREA TININE RATIO, RANDOM URINE 26 <30 mg/g creat [email or web address] Comment: The ADA defines abnormalities in [...] AM EDT 11/11/2023 10:11 AM EDT Narrative [email or web address] - 11/12/2023 3:36 PM EDT FASTING:NO Christopher McguireD LAB URINE AMB ULATORY Final Result Performing Organization Address City/State/[facility] Co de Phone Number [email or web address] [address] [address], [email or web address] [address] [address] * FECAL GLOBIN BY IMMUNOCHEMISTRY (FIT) (01/21/2023 8:00 PM EDT) Pathologist [facility] FECAL GLOBIN BY IMMUNOCHEMISTRY See Note [email or web address] Comment: FECAL GLOBIN BY IMMUNOCHEMISTRY Micro Number: [id number] Test Status: Final Specimen Source: Insure (tm) fobt test card Specimen Quality: Adequate Fecal Globin: Not Detected Stool Stool specimen / Unknown 01/21/2023 8:00 PM EDT 01/23/2023 4:16 AM EDT Corin YIN LAB BODY FLUIDS AND STOOLS AMBU LATORY Final Result [facility] [address] [address], [facility] [address] [place] [address] * HISTORIC DEXA SCAN (12/19/2022 3:00 AM EDT) 12/19/2022 3:00 AM EDT Negin Ray PROGRAM HOST-C IMG DXA Edited Resul t - Final * HISTORIC MAMMOGRAM (09/17/2022 3:00 AM EDT) 09/17/2022 3:00 AM EDT Negin Ray DHALIWALP-C IMG MAMMO Final Result * REFERRAL TO OPHTHALMOLOGY (11/13/2021 3:00 AM EDT) 11/13/2021 3:00 AM EDT Negin Ray PROGRAM HOST-C REFERRAL Final Result * HEPATITIS C AB W/RFLX HCV RNA, QT, RT PCR (07/10/2021 10:04 AM EDT) HEPATITIS C ANTIBODY NON-REACT KIARA NON-REACT KIARA [facility] SIGNAL TO CUT-OFF 0.01 <1.00 [facility] Comment: HCV antibody was non-reactive. There is no laboratory evidence of HCV infection. In most cases, no further action is required. However, if recent HCV exposure is suspected, a test for HCV RNA (test code 24182) is suggested. For additional information please refer to http://education.Theng[employer]/faq/UAS84a5 (This link is being provided for informational/ educational purposes only.) Blood Blood / Unknown 07/10/2021 1 0:04 AM EDT 07/10/2021 10:05 AM EDT Narrative [facility] - 07/10/2021 9:47 PM EDT FASTING:YES Negin Bell PROGRAM HOST-C LAB - BLOOD DRAW Final Resul t [email or web address] [address] [address], [email or web address] [address],[facility] [place] [address] * HIV 1/2 AG & AB W/RFLX (4TH GEN) (07/10/2021 10:04 AM EDT) HIV AG/AB, 4TH GEN NON-REAC TIVE NON-REAC TIVE [email or web address] Comment: HIV-1 antigen and HIV-1/HIV-2 antibodies [...] purpose. For additional information please refer to http://education.Theng[employer]/faq/DNB449 (This link is being provided for informational/ educational purposes only.) The performance of this assay has not been clinically validated in patients less than 2 years old. Blood Blood / Unknown 07/10/2021 1 0:04 AM EDT 07/10/2021 10:05 AM EDT Narrative [facility] - 07/10/2021 9:47 PM EDT FASTING:YES Negin Bell PROGRAM HOST-C LAB - BLOOD DRAW Final Resul t [email or web address] [address] [address], [email or web address] [address],[facility] [place] [address] from Last 3 Months or Most Recently Relevant to Health Maintenance Insurance [place] MED[place] DENT[place] [address] [facility] Medicaid Address: [facility] [id number] [place] [address] Care Teams Nailer Machine Relationship Specialty Start Date End Date Charity Mancera NP [address] [place] [address] PCP - General Internal Medicine 05/09/23
== END 2024-12-01 14:05 | disposition home or self-care (01) ==
PROVIDERS: Family Provider Internal Medicine Geriatric Medicine; Visit Provider Surgery
DX: N64.51 Induration of breast (principal)
CPT/HCPCS: 99213

== ENCOUNTER 2024-12-01 13:14 | Outpatient (REF) | payer MEDICAID, SELFPAY | END 2024-12-01 13:15 | disposition home or self-care (01) | LOC: HO.LNP 13:14 | PROVIDERS: Pathology Anatomic Pathology & Clinical Pathology; Visit Provider Surgery | DX: N64.51 Induration of breast (principal); C50.911 Malignant neoplasm of unspecified site of right female breast | CPT/HCPCS: 11104; 88304; 88305; 88341; 88342; 88360; 88374; 99212 ==

== ENCOUNTER 2024-12-08 13:59 | Outpatient (AMB) | payer MEDICAID, SELFPAY ==
--- NOTE | 2024-12-08 14:01 | A.OFFVIS_ITS ---
Vital Signs 12/08/24 14:11 Height 5 ft 4 in Weight 157 lb BMI 26.9 BP 124/60 Blood Pressure Location Rt brachial Position Sitting Pulse 78 Intake Visit Reasons: 1wk s/p Rt br punch bx Intake Note: Patient here s/p Rt breast punch biopsy on 12-01-2024. Patient c/o: feels anxious about results. Would like to get a breast reduction, worried about getting more breasts masses. Oncology: Dr. Boyer 12-28-2024 @ [facility]. Physical Therapy Supervisor Required: Yes Physical Therapy Supervisor Name: Jaswinder #[id number] Accompanied by: Self / Same As Patient Allergies acetaminophen (From Tylenol PM) Allergy (Verified 12/08/24 14:10) Difficulty Breathing aspirin Allergy (Verified 12/08/24 14:10) Itching bee pollen (bee stings) Allergy (Verified 12/08/24 14:10) Anaphylaxis codeine Allergy (Verified 12/08/24 14:10) Swelling diphenhydramine (From Tylenol PM) Allergy (Verified 12/08/24 14:10) Difficulty Breathing latex Allergy (Verified 12/08/24 14:10) Itching Penicillins Allergy (Verified 12/08/24 14:10) Rash Medication List - Last Reconciled 12/08/24 by Gary Gilbert MD albuterol sulfate 90 mcg/actuation (Ventolin HFA) 2 puffs inhalation Q6H PRN anastrozole 1 mg PO DAILY cholecalciferol (vitamin D3) 25 mcg PO DAILY dulaglutide (Trulicity) 0.75 mg subcut QWEEK epinephrine 0.3 mg IM NEEDED PRN gabapentin 1 cap PO BEDTIME PRN ipratropium bromide 18 mcg/actuation 2 puffs inhalation BID PRN loratadine 1 tab PO DAILY metformin 1 tab PO BID nitroglycerin 1 tab sublingual NEEDED omeprazole 1 cap PO DAILY pantoprazole 1 tab PO QAM rosuvastatin 20 mg PO DAILY HPI HPI 1wk s/p Rt br punch bx: Details: [age] year female here for follow-up for 53 year female here for follow-up for a dermal punch biopsy of the right breast. 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 She apparently underwent mastectomy, along with breast reconstruction and sentinel node biopsy in 2019 [facility] and [facility] in [place]. She also says that she had a mesh placed in the chest wall as she remembers being told that they had to remove part of the muscle at that time She also had undergone neoadjuvant treatment with TCH before that surgery. She did not undergo adjuvant chemotherapy. She had been on Herceptin. She had been following Dr. Boyer until 2021. She was seen again last Aug, [address] Boyer of Oncology and she was referred to me because of changes on the nipple-areolar complex and the surrounding skin. I sent her for an MRI which showed appears to be recurrence of the tumor in the nipple-areolar area, abutting the prosthesis. I therefore did a dermal punch biopsy last 12/01/2024 here in the office and she is here to discuss the results. She otherwise denies any new complaints. PENDING SALE TO [facility] Medical History (Updated 12/08/24 @ 14:28 by Gary Gilbert MD) Recurrent breast cancer Induration of right breast Breast cancer Type 2 diabetes mellitus with diabetic polyneuropathy, with long-term current use of insulin Asthma Myocardial infarction Nonalcoholic fatty liver disease Hyperlipidemia Ovarian cyst History of stroke Surgical History Hx of tonsillectomy History of delivery H/O right mastectomy Family History Family/Other Breast cancer Maternal Aunt Breast cancer Maternal Grandmother Breast cancer Paternal Grandmother Breast cancer Social History Alcohol intake: former Patient Tobacco Use Status: Never used Tobacco e-Cigarette/Vaping Use: Never Used Review of Systems Const Denies chills and Denies fever(s) Card Denies chest pain, Denies dyspnea and Denies dyspnea on exertion Resp Denies cough, Denies dyspnea and Denies dyspnea on exertion GI Denies hematochezia and Denies change in bowel habits Denies hematuria Musc Denies back pain and Denies limited range of motion Neuro Denies focal weakness and Denies convulsions Psych Denies depression and Denies mood swings Physical Exam Vital Signs: Last Vital Signs Pulse 78 12/08/24 14:11 BP 124/60 12/08/24 14:11 BMI result Body Mass Index 26.9 Const General: comfortable and no acute distress Orientation/consciousness: patient oriented x3 Neck Neck: Yes no lymphadenopathy Chest Other: Right breast with note of significant skin changes including induration, skin breakdown in the area of the nipple-areolar complex on the right side and the surrounding skin, no obvious axillary lymphadenopathy Resp Auscultation: clear to auscultation bilaterally Cardio Rhythm: regular rhythm GI Palpation (GI): Soft to palpation, nontender and no guarding Neuro General: patient oriented x3 Assessment & Plan Assessment & Plan (1) Recurrent breast cancer: Code(s): C50.919 - Malignant neoplasm of unspecified site of unspecified female breast Category: Medical Plan: Unfortunately, her punch biopsy shows invasive ductal carcinoma, grade 3, involving the dermis, ERPR negative, HER2 positive. This represents recurrence of her previous right breast cancer. This seems to about the procedure this as well I explained to her the above findings. I told her that we will have to refer her to the breast cancer surgeons in [facility] for further management as she may likely need to have the skin and prosthesis removed. She understands that the plastic surgeon may also need to be involved with this procedure. I will help her with this referral as she says that she is not familiar with [facility]. I have also instructed her to make sure that she continues to follow up with Dr. Boyer of Oncology. I explained to her the above plan and she seemed to understand this well and is comfortable with this. A molasses feed mixer was involved with the discussion. Orders: Referrals Breast Surgery Referral C50.919 - Malignant neoplasm of unspecified site of unspecified female breast Coding Level of Care Code Est Pt Level 3 (81150) Diagnoses Recurrent breast cancer C50.919
[2024-12-08 14:11] VITALS: BP 124/60; PULSE 78; BMI 26.9
--- OUTSIDE RECORDS SUMMARY | 2024-12-08 14:54 | XMS_ITS | Patient Health Record ---
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
--- OUTSIDE RECORDS SUMMARY | 2024-12-08 14:54 | XMS_ITS | Encounter Summary ---
Author Organization [employer] Address [address] [facility] [address] [place] [address] Care Team Providers Care Prosthetist Name Role Phone Marguerite Sharp RN Unavailable [phone] Jahaira Hwang Unavailable Name, Burton RODRIGUEZ Primary Care Provider [phone] Encounter Details Date Type Department Care Team ([facility] Contact Info) Description 12/03/2024 Orders Only [facility] [address] [place] [address] Provider, MD Dylan Social History Tobacco Use Types Packs/Day Years Used Date Smoking Tobacco: Former Cigarettes Passive Smoke Exposure: Past Smokeless Tobacco: Former Depression Answer Date Recorded Patient Health Questionnaire-9 Score 7 09/17/2024 Patient Health Questionnaire-9 Score 7 09/17/2024 Last PHQ-9: Questionnaire Data Not on file 0 09/17/2024 Housing Stability Answer Date Recorded What is your housing situation today? I have katherine baker 11/23/[address] you li ve. Do you have problems with any of the following? None of the above 11/23/2024 Food Insecurity Answer Date Recorded Within the past 12 months, y ou worried that your food would run out before you got money to buy more: Sometimes True 2024 Within the past 12 months,th e food you bought just didn't last and you didn't have enough money to get more: Sometimes True 11/23/2024 Transportation Answer Date Recorded In the past 12 months, has l ack of transportation kept you from medical appts, meetings, work or from getting things needed for daily living? Yes, it has kept me from medical appointments or getting medications. 11/23/2024 Utilities Answer Date Recorded In the past 12 months, has t he electric, gas, oil or water company threatened to shut off services in your home? No 11/23/2024 Depression Answer Date Recorded Patient Health Questionnaire-2 Score 0 09/17/2024 Internet Access Answer Date Recorded Internet Access Q1 Yes 11/23/2024 Internet Access Q2 Not on file 11/23/2024 Comments Unknown Sex and Gender Information Value Date Recorded Sex Assigned at Female 02/11/2022 10:37 AM EDT Legal Sex Female 10:37 AM EDT Gender Identity Female 02/11/2022 10:37 AM EDT Sexual Orientation Straight 02/11/2022 10 :37 AM EDT documented as of this encounter Plan of Treatment Upcoming Encounters Date Type Department Care Team (Late st Contact Info) Description 01/12/2025 2:00 PM EDT Office Visit [facility] OPTOMETRY [address] [place] [address] Tatiana Martin, OD [address] [place] [address] 02/25/2025 11:15 AM EST Office Visit [facility] MEDICINE [address] [place] [address] Burton Benjamin MD [address] [place] [address] documented as of this encounter Procedures Procedure Name Priority Date/Time Associated Diagnosis Comments MRI BREAST SCREENING BILATERAL W WO CONTRAST Routine 11/17/2024 1:02 PM EDT documented in this encounter Results * MRI Breast Screening Bilateral w/wo Contrast (11/17/2024 1:02 PM EDT) Anatomical Region Laterality Modality Magnetic Resonan ce us Historical Provider MD JOINER MRI PROCEDURES Final Result documented in this encounter Visit Diagnoses Not on filedocumented in this encounter Additional Health Concerns Assessment Noted Time PHQ-9 Depression Total Score: 7 09/18/19 25 9:56 AM EDT documented as of this encounter Care Teams Prosthetist Relationship Specialty Start Date End Date NameBurton MD [address] [place] [address] PCP - General Internal Medicine 09/17/24 Marguerite Sharp RN [address] [place] [address] Registered Nurse Family Medicine 09/03/24 Jahaira Hwang 09/07/24 documented as of this encounter
--- OUTSIDE RECORDS SUMMARY | 2024-12-08 14:54 | XMS_ITS | Clinical Summary ---
Author Organization [facility] Address [address] [place] [phone] Phone Care Team Providers Care Wastewater Manager Name Role Phone Tatiana Taylor Primary Care Provider [phone] Allergies Active Allergy Reactions Criticality Noted Date [...] Active Immunizations Name Administration Dates Next Due [facility] SARS-CoV-2 COVID-19, mRNA, LNP-S, preservative free 01/21/2023 [...] Health Maintenance Results * Lipid panel (03/10/2023) [facility] Triglycerides 0 mg/dL Comment:No interpretation, a bstracted Cholesterol 0 mg/dL Comment:No interpretation, a bstracted HDL 0 mg/dL Comment:No interpretation, a bstracted LDL Cholesterol 0 mg/dL Comment:No interpretation, a bstracted Blood Venous blood specimen / Unknown Result [facility] Provider LAB BLOOD ORDERABLES Hannah l Result * HIV Screening (07/10/2021) [facility] HIV Screening Abstracted Result [facility] Provider HEALTH MAINTENANCE Final Result * Hepatitis C Screening (07/10/2021) [facility] Hepatitis C Screening Abstracted Result [facility] Provider HEALTH MAINTENANCE Final Result * Cervical Cancer Screening: HPV (12/27/2020) [facility] Cervical Cancer Screening: HPV No interpretation , abstracted Result [facility] Provider HEALTH MAINTENANCE Final Result from Last 3 Months or Most Recently Relevant to Health Maintenance Insurance MEDICAID - [place] Care Teams Wastewater Manager Relationship Specialty Start Date End Date Tatiana Taylor PA [address] [place] [address] PCP - General 12/10/22
--- OUTSIDE RECORDS SUMMARY | 2024-12-08 14:54 | XMS_ITS ---
Author Organization [employer] Address [address] [facility] [address] [place] [address] Care Team Providers Care Manager Cardiac Name Role Phone Marguerite Sharp RN Unavailable [phone] Jahaira Hwang Unavailable Name, Burton RODRIGUEZ Primary Care Provider [phone] CH[facility] Complex Status:Enrolled (Active) Start date:09/07/2024 Enrollment date:11/23/2024 Enrollment reason:C3 Manual Referral Overview Referral from C3 RN [facility]- Please see note dated 09/03/24. 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 Pt will need to come in person [facility] Please outreach for enrollment. Case Team Name Relationship Phone Jahaira Hwang(Responsible Staff) [phone] Continued Care and Services Coordination
--- OUTSIDE RECORDS SUMMARY | 2024-12-08 14:54 | XMS_ITS ---
Author Organization [employer] Address [address] [facility] [address] [place] [address] Care Team Providers Care Product Management Manager Name Role Phone Marguerite Sharp RN Unavailable [phone] Jahaira Hwang Unavailable Name, Burton RODRIGUEZ Primary Care Provider [phone] CM Complex Status:Enrolled (Active) Start date:09/03/2024 Enrollment date:11/19/2024 Enrollment reason:Other Overview Referral from C3 RN [facility]- Please see note dated 09/03/24. 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 Pt will need to come in person to sign CHELSIE for [facility]. Case Team Name Relationship Phone Marguerite Sharp RN(Responsible Staff) Registered Nurse [phone] Continued Care and Services Coordination
--- OUTSIDE RECORDS SUMMARY | 2024-12-08 14:54 | XMS_ITS | Clinical Summary ---
Author Organization [employer] Address [address] [address] [facility] [place] [address] Care Team Providers Care Route Salesman Name Role Phone Marguerite Sharp RN Unavailable [phone] Jahaira Hwang Unavailable Name, Burton RODRIGUEZ Primary Care Provider [phone] Allergies Active Allergy Reactions Criticality Noted Date Comments Acetaminophen Unknown 03/15/2020 Aspirin 11/25/2024 Bee Venom Anaphylaxis High 03/15/2020 Diphenhydramine Unknown 03/15/2020 Diphenhydramine-Acetaminophe n 08/15/2022 Gramineae Pollens 03/10/2023 Environmental allergies to pollen, mold, some rugs, some mold, dust Other 08/15/2022 Diphenhydramine-apap (sleep) Penicillins Unknown 03/15/2020 Propofol 07/09/2021 Pt reports reaction (irregular heart rhythm) after getting general anesthesia Medications anastrozole (Arimidex) 1 MG chemo tablet Take 1 mg by mouth Once per day. Active calcium carbonate EX (Tums Extra Strength) 750 MG chewable tablet Use 600 mg in the mouth or throat if needed each day. 03/10/20 24 Active cholecalcifero l VITAMIN D (Vitamin D-3) 50 MCG (1999 UT) capsule Take by mouth Once per day. Active albuterol (ProAir HFA) 108 (90 Base) MCG/ACT inhaler Inhale 2 puffs every 4 (four) hours. 18 g 3 09/18/19 25 Active Azelastine HCl 137 MCG/SPRAY solution spray 2 sprays into each nostril twice a day 30 mL 09/18/19 25 Active gabapentin (Neurontin) 400 MG capsule Take 1 capsule (400 mg) by mouth at bedtime. 30 capsule 09/18/19 Active loratadine (Claritin) 10 MG tablet Take 1 tablet (10 mg) by mouth in the morning. 30 tablet 09/18/19 Active metFORMIN XR (Glucophage-XR ) 500 MG 24 hr tablet Take 1 tablet (500 mg) by mouth with breakfast. 30 tablet 09/18/19 Active montelukast (Singulair) 10 MG tablet Take 1 tablet (10 mg) by mouth at bedtime. 30 tablet 09/18/19 Active Trulicity 1.5 MG/0.5ML solution auto-injector Inject 1.5 mg under the skin 1 (one) time per week. 2 mL 09/18/19 25 Active FREESTYLE LITE test stripIndicatio ns:Type 2 diabetes mellitus without complication, without long-term current use of insulin ([facility]) Use to test blood sugar 1 times daily 100 each 12 09/18/19 25 Active Lancets miscIndication s:Type 2 diabetes mellitus without complication, without long-term current use of insulin ([facility]) Use to test blood sugar 1 times daily 100 each 09/18/19 25 Active Alcohol Swabs 70 % padsIndication s:Type 2 diabetes mellitus without complication, without long-term current use of insulin ([facility]) Use to test blood sugar 1 times daily 100 each 09/18/19 25 Active Blood Glucose Monitoring Suppl (FreeStyle Roscoe Lite) w/Device kitIndications :Type 2 diabetes mellitus without complication, without long-term current use of insulin ([facility]) Use to test blood sugar 1 times daily 1 kit 09/18/19 25 Active pantoprazole (ProtoNix) 20 MG EC tablet Take one tablet by mouth daily in the morning. Take on an empty stomach. Do not crush, chew, or split. 30 tablet 11/12/19 25 Active rosuvastatin (Crestor) 10 MG tablet Take 1 tablet (10 mg) by mouth Once per day. 30 tablet 11/26/19 Active lisinopril 2.5 MG tablet Take 1 tablet (2.5 mg) by mouth Once per day. 30 tablet 11/26/19 Active melatonin 5 MG tablet Take 1 tablet (5 mg) by mouth at bedtime. 30 tablet 11/26/19 25 026 Active atorvastatin (Lipitor) 40 MG tablet Take 1 tablet (40 mg) by mouth Once per day. 30 tablet 09/18/19 025 Discontinued(Si de effects) lisinopril 2.5 MG tablet Take 1 tablet (2.5 mg) by mouth Once per day. 30 tablet 09/18/19 025 Discontinued(Re order (will not trigger notification to Pharmacy)) pantoprazole (ProtoNix) 20 MG EC tablet Take 20 mg by mouth. Do not crush, chew, or split. 025 Discontinued(Re order (will not trigger notification to Pharmacy)) Active Problems Problem Noted Date Diagnosed Date Malignant neoplasm of upper-outer quadrant of fe male breast 04/04/2022 Mild intermittent asthma 04/04/2022 Cerebrovascular accident (CVA) 07/09/2021 Overview (09/17/2024): No residual deficit H/O right mastectomy 07/09/2021 Hyperlipidemia 07/09/2021 Overweight 07/09/2021 Type 2 diabetes mellitus wit hout complication, without long-term current use of insulin 07/09/2021 History of malignant neoplasm of breast 07/10/19 Overview (09/16/2024): Next appt mar 2024 for bone density Currently on oral anastrozole. Sees Dr. Acevedo. Last seen 11/2022 Diagnosed in January 2019 in [place] Received chemotherapy in [place]. Currently on oral medication Diagnosed in January 2019 in [place] Received chemotherapy in [place]. Currently on oral medication Cerebrovascular accident 07/09/2021 History of myocardial infarction 09/20/2020 Encounters Date Type Department Care Team Description 12/06/2024 Patient Outreach [facility] [address] [place] [phone] Burton Benjamin MD Care Management (C3CM- 1st f/u call lvm) 12/03/2024 [facility] Only [facility] Information Management [address] [place] [phone] ProviderDylan MD 12/01/2024 Patient Outreach [address] [address] Burton Benjamin MD Care Coordination (Appt reminder) 11/25/2024 11:15 AM EDT Office Visit [address] [address] Burton Benjamin MD Type 2 diabetes mellitus without complication, without long-term current use of insulin ([facility]) (Primary Dx); History of malignant neoplasm of breast; Chronic insomnia 11/25/2024 Travel 11/24/[address] [address] Devi Morrison MA Chart Prep 11/23/2024 Patient Outreach [address] [address] Burton Benjamin MD Care Coordination (PT1) 11/22/2024 Plan of Care Documentation [address] [address] 11/19/2024 Patient Outreach [address] [address] Burton Benjamin MD Care Management (C3CM- initial assessment/ enrollment) 11/19/2024 Patient Outreach [address] [address] Burton Benjamin MD Care Coordination (C3 -W Leora Wyatt telephone call outreach) 11/18/2024 Patient Outreach [address] [address] Burton Benjamin MD Care Coordination (CM/CHW appt reminder) 11/12/[address] [address] Burton Benjamin MD FYI 11/11/2024 Patient Outreach [address] [address] Burton Benjamin MD Care Coordination (CM/CHW outreach) 11/11/[address] [address] Burton Benjamin MD request call bcak 10/29/[address] [address] Burton Benjamin MD 10/21/2024 Patient Outreach [address] [address] Burton Benjamin MD Care Coordination (CM/CHW outreach) 10/04/2024 Patient Outreach [address] [address] Burton Benjamin MD Care Coordination (CM/CHW outreach) 09/29/[address] [address] Burton Benjamin MD Care Management (C3CM- initial assessment/ enrollment. lvm) 09/27/2024 Patient Outreach [address] [address] Burton Benjamin MD Care Coordination (CM/CHW outreach) 09/23/[address] [address] Burton Benjamin MD 09/22/2024 Patient Outreach [address] [address] Burton Benjamin MD Care Management (C3CM- initial assessment/ enrollment. R/s) 09/21/2024 Results Follow-Up [address] [address] Zoya Latham MD XR Chest 1 View 09/21/2024 Patient Outreach [address] [address] Burton Benjamin MD Care Coordination (CM/CHW appt reminder) 09/21/2024 Orders Only [facility] External Provider, [facility] 09/17/2024 9:30 AM EDT Office Visit [address] [address] Burton Benjamin MD Type 2 diabetes mellitus without complication, without long-term current use of insulin (CMS/HCC) (Primary Dx); Decreased vision in both eyes; Malignant neoplasm of upper outer quadrant of breast in female, estrogen receptor negative, unspecified laterality (CMS/HCC) 09/17/2024 Population Health Risk Score [facility] (C3) [address] [phone] Provider, Population Health Generic 09/17/2024 Results Follow-Up [facility] [address] [place] [address] Burton Benjamin MD POCT Glucose, Comprehensive Metabolic Panel, Lipid Panel, Standard, Additional followed-up results: 3 09/17/[address] [address] Burton Benjamin MD 09/17/2024 Travel 09/16/[address] [address] Devi Morrison MA Chart Prep 09/13/2024 Patient Outreach [address] [address] Andrés Noonan MD Care Coordination (CM/CHW outreach) 09/10/2024 Patient Outreach [address] [address] Andrés Noonan MD Care Coordination (CM/CHW outreach) 09/09/2024 Patient Outreach [address] [address] Lena Littlejohn, RN Care Management (C3/CM Outreach ) 09/08/[address] [address] Yulissa Chou NP [employer] 09/08/2024 Patient Outreach [address] [address] Andrés Noonan MD Care Coordination (CM/CHW outreach) 09/07/2024 Patient Outreach [address] [address] Andrés Noonan MD Care Coordination (CM/CHW outreach) 09/07/2024 Patient Outreach [address] [address] Andrés Noonan MD Care Coordination (CHW chart review) 09/07/2024 Patient Outreach [facility] [address] [place] [address] Marguerite Sharp, EDWIN Care Management (C3- chart review) from Last 3 Months Immunizations Immunization Administration Dates Next Due HepB-CpG 12/09/2022,11/04/2022 Influenza injectable quadriv alent preservative free 01/21/2023,03/27/2022,01/24/2021,03/15 Influenza, IIV3, injectable 01/12/2021 Influenza, Recombinant, inje ctable, preservative free 03/10/2024 Amy SARS-CoV-2 Vaccination 06/28/2020 Pfizer Covid-19 Vaccine 12+ 05/02/2021 Pneumococcal Conjugate PCV 20 11/04/2022 Pneumococcal Polysaccharide PPSV23 10/03/2011 TD (adult), 2 Lf tetanus tox oid, preservative free, adsorbed 12/13/1998 Tdap 03/27/2022,09/10/2007 Zoster, Recombinant 07/09/2021,10/03/2020 Social History Tobacco Use Types Packs/Day Years Used Date Smoking Tobacco: Former Cigarettes Passive Smoke Exposure: Past Smokeless Tobacco: Former Tobacco Cessation:Counseling Given: Not Answered Depression Answer Date Recorded Patient Health Questionnaire-9 [...] Orientation Straight 02/11/2022 10 :37 AM EDT Last Filed Vital Signs Vital Sign Reading Time Taken Comments Blood Pressure 114/76 11/25/2024 11:10 AM EDT Pulse 87 11/25/2024 11:10 AM EDT Temperature 37.1 C (98.7 F) 11/25/2024 11:10 AM EDT Respiratory Rate 18 11/25/2024 11:10 AM EDT Oxygen Saturation 97% 11/25/2024 11:10 AM EDT Inhaled Oxygen Concentration - - Weight 68.5 kg (151 lb) 11/25/2024 11:10 AM EDT Height 163.5 cm (5' 4.37 ) 11/25/2024 11:10 AM E DT Body Mass Index 25.62 11/25/2024 11:10 AM EDT Plan of Treatment Upcoming Encounters Date Type Department Care Team (Late st Contact Info) Description 01/12/2025 2:00 PM EDT Office Visit [facility] [address] [place] [address] Tatiana Martin, MANJINDER [address] [place] [address] 02/25/2025 11:15 AM EST Office Visit [facility] [address] [place] [address] Name, MD Burton [address] [place] [address] Health Maintenance Due Date Last Done Comments CT Colonography 1970 Colonoscopy 1970 FIT DNA/Cologuard 1970 FOBT 1970 Mammogram 1970 Sigmoidoscopy 1970 Diabetes: Foot Exam 12/19/1979 Eye Exam 12/19/1979 Hepatitis C Screening 12/19/1987 COVID-19 Vaccine ( season) 2023 01/21/2023, 05/02/2021, 06/28/2020 Pap Smear 12/28/2023 12/27/2020 Colorectal Cancer Screening 01/22/2024 FIT 01/22/2024 01/21/2023 Influenza Vaccine (#1) 2024 , 01/21/2023, 03/27/2022, Additional history exists Diabetes: Hemoglobin A1C 02/25/2025 11/25/2024, 09/2024 Alcohol/Substance Use Screening 09/17/2025 09/17/2024 Depression Screening 09/17/2025 09/17/2024, 09/18/19 25 Diabetes: Urine Protein Screening 09/17/2025 09/17/2024 Disability Screening 09/17/2025 09/17/2024 Lipid Panel 09/17/2025 09/17/2024, 0612/2020, 03/15/2020 SDOH Screening 11/23/2025 11/23/2024 Tobacco Screening 11/25/2025 11/25/2024 Cervical Cancer Screening 12/27/2025 HPV/Cotest 12/27/2025 12/27/2020 DTaP/Tdap/Td Vaccines (3 - Td or Tdap) 03/27/2032 03/27/2022, 09/10/2007, 12/13/1998 RSV Patients and Patients Aged 60 years or older (1 - 1-dose 75+ series) 2044 Zoster Vaccines Completed 07/09/2021, 10/03/2020 HIV Screening Completed 07/10/2021, 07/10/2021 Pneumococcal Vaccine: 50+ Years Completed 11/04/2022, 10/03/2011 Hepatitis B Vaccines Completed 12/09/2022, 11/05/19 23 HIB Vaccines Aged Out No longer eligi [...] patient's age to complete this topic Meningococcal Vaccine Aged Out No rizwana kathryn eligible based on patient's age to complete this topic RSV under 20 months Aged Out No longe r eligible based on patient's age to complete this topic Rotavirus Vaccines Aged Out No longer eligible based on patient's age to complete this topic Procedures Procedure Name Priority Date/Time Associated Diagnosis Comments POCT GLYCATED HEMOGLOBIN, TOTAL Routine 11/25/2024 11:12 AM EDT Type 2 diabetes mellitus without complication, without long-term current use of insulin ([facility]) POCT GLUCOSE Routine 11/25/2024 11:12 AM EDT Type 2 diabetes mellitus without complication, without long-term current use of insulin ([facility]) MRI BREAST SCREENING BILATERAL W WO CONTRAST Routine 11/17/2024 1:02 PM EDT GLUCOSE, WHOLE BLOOD Routine 09/21/2024 1:56 AM EDT URINALYSIS, COMPLETE, WITH REFLEX TO CULTURE Routine 09/21/2024 1:36 AM EDT XR CHEST 1 VIEW Routine 09/21/2024 1:05 AM EDT SARS COV2/INFLUENZA A/B AND RSV RNA QL NAAT Routine 09/21/2024 12:05 AM EDT STREP A NUCLEIC ACID Routine 09/21/2024 12:05 AM EDT BASIC METABOLIC PANEL Routine 09/21/2024 12:04 AM EDT ALBUMIN, RANDOM URINE W/CREATININE Routine 09/17/2024 10:33 AM EDT Type 2 diabetes mellitus without complication, without long-term current use of insulin (CMS/HCC) Malignant neoplasm of upper outer quadrant of breast in female, estrogen receptor negative, unspecified laterality (CMS/HCC) Decreased vision in both eyes HEMOGLOBIN A1C Routine 09/17/2024 10:33 AM EDT Type 2 diabetes mellitus without complication, without long-term current use of insulin (CMS/HCC) Malignant neoplasm of upper outer quadrant of breast in female, estrogen receptor negative, unspecified laterality (CMS/HCC) Decreased vision in both eyes CBC WITH AUTO DIFFERENTIAL Routine 09/17/2024 10:33 AM EDT Type 2 diabetes mellitus without complication, without long-term current use of insulin (CMS/HCC) Malignant neoplasm of upper outer quadrant of breast in female, estrogen receptor negative, unspecified laterality (CMS/HCC) Decreased vision in both eyes LIPID PANEL, STANDARD Routine 09/17/2024 10:33 AM EDT Type 2 diabetes mellitus without complication, without long-term current use of insulin (CMS/HCC) Malignant neoplasm of upper outer quadrant of breast in female, estrogen receptor negative, unspecified laterality (CMS/HCC) Decreased vision in both eyes COMPREHENSIVE METABOLIC PANEL Routine 09/17/2024 10:33 AM EDT Type 2 diabetes mellitus without complication, without long-term current use of insulin (CMS/HCC) Malignant neoplasm of upper outer quadrant of breast in female, estrogen receptor negative, unspecified laterality (CMS/HCC) Decreased vision in both eyes POCT GLUCOSE Routine 09/17/2024 9:47 AM EDT Type 2 diabetes mellitus without complication, without long-term current use of insulin (CMS/HCC) HPV MRNA E6/E7 Routine 12/27/2020 12:00 AM EDT THINPREP PAP Routine 12/27/2020 12:00 AM EDT from Last 3 Months or Most Recently Relevant to Health Maintenance Results * (ABNORMAL) POCT HGB A1C (11/25/2024 11:12 AM EDT) Hemoglobin A1C 7.0(A) 4.0 - 5.7 % QC Media Lot # [id number] Lot# Expiration Date Blood 11/25/2024 11:1 2 AM EDT Burton Name POINT OF CARE TEST ENTER/EDIT OR DERABLES Final Result * POCT Glucose (11/25/2024 11:12 AM EDT) Only the most recent of2 resultswithin the time period is included. Glucose Blood, POC 189 60 - 200 mg/dL QC Media Lot # [id number] Lot# Expiration Date Blood Capillary blood specimen / Unknown 11/25/2024 11:12 AM EDT Burton Benjamin MD POINT OF CARE TEST ENTER/EDIT OR DERABLES Final Result * MRI Breast Screening Bilateral w/wo Contrast (11/17/2024 1:02 PM EDT) Anatomical Region Laterality Modality Magnetic Resonan ce Historical Provider IMG MRI PROCEDURES Final Result * (ABNORMAL) Glucose, Whole Blood (09/21/2024 1:56 AM EDT) Glucose, Whole Blood 354(HH) 60 - 115 mg/dL [facility] Comment:METER #: [id number] 09/21/2024 1:56 AM EDT 09/21/2024 2:00 AM EDT Generic External Data Provider LAB BLOOD ORDERAB LES Final Result [facility] [address] [place] [phone] * (ABNORMAL) Urinalysis, Complete, with Reflex to Culture (09/21/2024 1:36 AM EDT) Color Urine Yellow [facility] Appearance Urine Clear [facility] PH 6.5 5.0 - 9.0 [facility] Glucose Urine UA >=1000(A) Negative mg/dL [facility] Urine Blood Negative Negative [facility] Specific Wenden - Urine 1.015 1.005 - 1.025 [facility] Urine Protein 30 (1+)(A) Neg-Trace mg/dL [facility] Urine Ketones Negative Negative mg/dL [facility] Nitrite Urine Negative Negative [facility] Leukocyte Esterase Urine Negative Negative [facility] RBC Urine 0-2 0 - 2 /HPF [facility] Urine WBC 0-5 0 - 5 /HPF [facility] Urine Squamous Epithelial Cell 0-2 0 - 2 /HPF [facility] Urine Bacteria None Seen None Seen [facility] Hyaline Casts, Urine 0-2 0 - 2 /LPF [facility] 09/21/2024 1:36 AM EDT 09/21/2024 1:39 AM EDT Narrative [facility] - 09/21/2024 1:44 AM EDT [id number], Clean Catch us Generic External Data Provider LAB URINE ORDERAB LES Final Result Performing Organization Address City/State/[facility] Co de Phone Number [facility] [address] [place] [phone] * XR Chest 1 View (09/21/2024 1:05 AM EDT) Anatomical Region Laterality Modality Chest Radiographic Saray ging 09/21/2024 1:05 AM EDT Narrative 09/21/2024 1:06 AM EDT [address] [address] XRay Report Signed Patient: Zeynep Robles MR #: [id number] : 1970 Acct:[id number] Age/Sex: 53 / F ADM Date: 09/21/24 Loc: HO.ED Attending Dr: Ordering Physician: Rita Lala DO Date of Service: 09/21/24 Procedure(s): XR chest 1V Accession Number(s): [id number] cc: Rita Lala DO; [facility] CLINICAL HISTORY: cough 1 view chest x-ray Comparison: None Findings: The lungs are clear. Normal size heart. No acute fracture. IMPRESSION: 1. No acute findings. This document has been electronically signed by: Tim Hutton MD on 09/21/2024 01:05:04 Dictated By: Tim Hutton MD Signed By: <Electronically signed by Tim Hutton MD in OV> 09/21/24105 DD/ 4 TD/TT: 09/21/24104 Correctional Supervising Cook: Procedure Note Donotuseinterpreter, Image - 09/21/[address] [address] XRay Report Signed Patient: Zeynep Robles #: [id number] : 1970Acct:[id number] Age/Sex: 53 / FADM Date: 09/21/24 Loc: .ED Attending Dr: Ordering Physician: Rita Lala DO Date of Service: 09/21/24 Procedure(s): XR chest 1V Accession Number(s): [id number] cc: Rita Lala DO; [facility] CLINICAL HISTORY: cough 1 view chest x-ray Comparison: None Findings: The lungs are clear. Normal size heart. No acute fracture. IMPRESSION: 1. No acute findings. This document has been electronically signed by: Tim Hutton MD on 09/21/2024 01:05:04 Dictated By: Tim Hutton MD Signed By: <Electronically signed by Tim Hutton MD in OV> 09/21/24105 DD/ 4 TD/TT: 09/21/24104 Correctional Supervising Cook: [facility] External Provider IMG XR PROCEDURES Edited Result - Final * Strep A Nucleic Acid (09/21/2024 12:05 AM EDT) IDNOW SERIAL# [id number] [facility] Strep A Nucleic Acid Negative Negative [facility] Comment:All test results mus t be correlated with clinical findings.This test has not been evaluated for monitoring treatment ofinfection.Additional follow-up testing using the culture method isrequired if the result is negative and clinical symptomspersist, or in the event of an acute rheumatic feveroutbreak. 09/21/2024 12:0 5 AM EDT 09/21/2024 12:11 AM EDT us [place] External Data Provider LAB MICROBIOLOGY - GENERAL ORDERABLES Final Result [facility] [address] [place] [phone] [phone] * (ABNORMAL) SARS-CoV-2 RNA, Influenza A/B, and RSV RNA, Ql NAAT (09/21/2024 12:05 AM EDT) Influenza A PCR NEGATIVE Negative [facility] Influenza B PCR NEGATIVE Negative [facility] Resp Syncy Virus RNA Qual PCR NEGATIVE Negative [facility] SARS COV2 PCR POSITIVE(A) Negative [facility] Comment:All test results mus t be correlated with clinical findings.Negative results do not preclude SARS-CoV2, influenza Avirus, influenza B virus and/or RSV infectionand should not be used as the sole basis for treatment orother patient management decisions. Negative results must becombined with clinical observations, patient history, andepidemiological information.This test has not been evaluated for monitoring treatment ofinfection.This test has been authorized by the FDA under an EmergencyUse Authorization (EUA) for use by authorized laboratories.Testing performed on the Directa Plus GeneXpert utilizingreal-time RT-PCR.All SARS CoV2 and positive influenza A/B results arereported to [facility]. 09/21/2024 12:0 5 AM EDT 09/21/2024 12:11 AM EDT us Generic External Data Provider LAB MICROBIOLOGY - GENERAL ORDERABLES Final Result Performing Organization Address City/[facility]/ZIP Co de Phone Number [facility] [address] [place] [phone] * (ABNORMAL) Basic Metabolic Panel (09/21/2024 12:04 AM EDT) Sodium 133(L) 135 - 145 mmol/L [facility] Potassium 4.1 3.3 - 5.1 mmol/L [facility] Chloride 98 96 - 108 mmol/L [facility] Carbon Dioxide 22 22 - 29 mmol/L [facility] Anion Gap 17 12 - 20 [facility] Urea Nitrogen (BUN) 18(H) 9 - 16 mg/dL [facility] Creatinine, Serum 0.97 0.5 - 1.4 mg/dL [facility] Creatinine Clr Calc Pharmacy 62.1 [facility] Comment:Provided height and weight: 167.64 cm,69.853 kg.eGFR (calculated from the MDRD study equation) and eCrCl(calculated from the Cockcroft-Gault equation) are based ondifferent parameters and may not yield comparable results.If eCrCl result is absurd, please check patient'sheight/weight. Estimated Glomerular Filt Rate 60 [facility] Comment:Chronic Kidney Disea se: Estimated GFR < 60 mL/min/1.73q8Dauhnl Kidney Disease: Estimated GFR < 15 mL/min/1.73m2 Glucose 429(HH) 60 - 115 mg/dL [facility] Comment:Critical value for t est(s): GLUCR Results called to claude back by: ANDREZ Person calling: VYASRID Date: [id number] Calcium 9.6 8.4 - 10.2 mg/dL [facility] 09/21/2024 12:0 4 AM EDT 09/21/2024 12:11 AM EDT us Generic External Data Provider LAB BLOOD ORDERAB LES Final Result [facility] [address] [place] [phone] * (ABNORMAL) Albumin, Random Urine W/Creatinine (09/17/2024 10:33 AM EDT) [facility] Creatinine, Urine 98.96 mg/dL [facility] Microalbumin Urine 62.0 mg/L H [facility] Microalbum Creatinine Ratio Ur 62.6(H) <30 ug/mg cr [facility] Comment:Albumin/Creatinine R atio Reference Ranges: Normal: < 30 ug/mg creatinine Microalbuminuria: 30 - 300 ug/mg creatinineClinical Albuminuria: > 300 ug/mg creatinine Urine (Urine, Random) 09/17/2024 10:33 AM EDT 09/17/2024 1:08 PM EDT us Burton Benjamin MD LAB URINE ORDERABLES Final Resul t [facility] [address] [place] [phone] [phone] * (ABNORMAL) CBC auto differential (09/17/2024 10:33 AM EDT) [facility] White Blood Count 7.2 4.8 - 10.8 X10*3/uL [facility] Red Blood Count 5.11 4.20 - 5.50 X10*6/uL [facility] Hemoglobin 14.4 12.0 - 16.0 g/dl [facility] Hematocrit 41.7 37.0 - 47.0 % [facility] Mean Corpuscular Volume 81.6 80.0 - 98.0 fL [facility] Mean Corpuscular Hemoglobin 28.2 27.0 - 33.0 pg [facility] Mean Corpuscular HGB Conc 34.5 31.0 - 35.0 g/dl [facility] Red Cell Distribution Width 13.7 11.0 - 16.0 % [facility] Platelet Count 215 160 - 400 X10*3/uL [facility] Mean Platelet Volume 13.3(H) 9.4 - 12.3 fL [facility] Neutrophils Percent Auto 56.5 45 - 73 % [facility] Imm Gran Pct Auto 0.1 0.0 - 0.4 % [facility] Lymphocytes Percent Auto 37.6 20 - 40 % [facility] Monocytes Percent Auto 5.1 2 - 11 % [facility] Eosinophils Percent Auto 0.6 0 - 4 % [facility] Basophils Percent Auto 0.1 0 - 2 % [facility] NRBC Pct Auto 0.0 0.0 - 0.2 /100WBC [facility] Neutrophils Absolute Auto 4.1 2.0 - 8.3 x10*3/uL [facility] Imm Gran Abs Auto 0.01 0.00 - 0.03 X10*3/uL [facility] Lymphocytes Absolute Auto 2.7 1.2 - 4.9 X10*3/uL [facility] Monocytes Absolute Auto 0.4 0.1 - 1.2 X10*3/uL [facility] Eosinophils Absolute Auto 0.0 0.0 - 0.4 X10*3/uL [facility] Basophils Absolute Auto 0.0 0.0 - 0.2 X10*3/uL [facility] NRBC Abs Auto 0.000 0.0 - 0.012 X10*3/uL [facility] Blood Venous blood specimen / Unknown 09/17/2024 10:33 AM EDT 09/17/2024 1:21 PM EDT us Burton Name LAB BLOOD ORDERABLES Final Resul t [facility] [address], [place] [phone] * (ABNORMAL) Hemoglobin A1c (09/17/2024 10:33 AM EDT) Hemoglobin A1c 8.7(H) <6.0 % [facility] Comment:Hemoglobin A1C Refer ence Range Adults: 4.8 - 6.0 % Non diabetic: < 6.0 % Goal: < 7.0 %Additional Action Suggested: > 8.0 %Note: Hemoglobin A1c results are invalid for patients with abnormal amounts of HbF. Blood transfusions may impact the HbA1c concentration in the patient sample. Estimated Average Glucose 203 mg/dL [facility] Comment:eAG = Estimated ave rage glucose which is %A1C expressed asaverage glucose, using the formula of the V5Q-XvkwjmqOgwhhpz Glucose study (ADAG), Diabetes Care, Vol.31,#8,Nov. 2007 Blood Venous blood specimen / Unknown 09/17/2024 10:33 AM EDT 09/17/2024 1:21 PM EDT us Burton Benjamin MD LAB BLOOD ORDERABLES Final Resul t [facility] [address] [place] [address] [phone] * (ABNORMAL) Lipid Panel, Standard (09/17/2024 10:33 AM EDT) Triglycerides 401(H) <150 mg/dL [facility] Comment:Desirable Triglyceri de: less than 150 mg/dLBorderline High Triglyceride 150-199 mg/dLHigh Triglyceride: 200-499 mg/dLVery High Triglyceride: greater than or equal to 5OO mg/dL Cholesterol 211(H) <200 mg/dL [facility] Comment:Desirable Cholestero l: less than 200 mg/dLBorderline High Cholesterol: 200-239 mg/dLHigh Cholesterol: greater than 239 mg/dL LDL Cholesterol Calculated TNP <100 mg/dL [facility] Comment:Unable to calculate the LDL. The formula of Friedwald,Colon, and Pili is only valid if the triglycerides areless than 400 mg/dl. HDL Cholesterol 39(L) >40 mg/dL [facility] Comment:Desirable HDL: great er than 40 mg/dL Note: This HDL assay may give artificially low results in patients with liver disease. Blood Venous blood specimen / Unknown 09/17/2024 10:33 AM EDT 09/17/2024 1:21 PM EDT us Burton Name MD LAB BLOOD ORDERABLES Final Resul t [facility] [address], [place] [phone] * (ABNORMAL) Comprehensive Metabolic Panel (09/17/2024 10:33 AM EDT) Sodium 138 135 - 145 mmol/L [facility] Potassium 4.3 3.3 - 5.1 mmol/L [facility] Chloride 100 96 - 108 mmol/L [facility] Carbon Dioxide 30(H) 22 - 29 mmol/L [facility] Anion Gap 12 12 - 20 [facility] Urea Nitrogen (BUN) 15 9 - 16 mg/dL [facility] Creatinine, Serum 0.84 0.5 - 1.4 mg/dL [facility] Estimated Glomerular Filt Rate >60 [facility] Comment:Chronic Kidney Disea se: Estimated GFR < 60 mL/min/1.11k7Seocsv Kidney Disease: Estimated GFR < 15 mL/min/1.73m2 Glucose 433(HH) 60 - 115 mg/dL [facility] Comment:Critical value for t est(s): GLUR Results called to claude back by: ROXANNE Rodrigues Person calling: JEANNINE Date:09/17/2024 Time:14:55 Calcium 11.2(H) 8.4 - 10.2 mg/dL [facility] Bilirubin, Total 0.6 0.0 - 1.0 mg/dL [facility] Aspartate Amino Transferase 25 5 - 31 U/L [facility] Alanine Aminotransferase 58(H) 0 - 31 U/L [facility] Total Protein 8.0 6.5 - 8.0 g/dL [facility] Albumin Level 4.6 3.5 - 5.0 g/dL [facility] Alkaline Phosphatase 122(H) 39 - 117 U/L [facility] Blood Venous blood specimen / Unknown 09/17/2024 10:33 AM EDT 09/17/2024 1:21 PM EDT us Burton Benjamin MD LAB BLOOD ORDERABLES Final Resul t Performing Organization Address City/[facility]/ZIP Co de Phone Number [facility] [address] [place] [address] [phone] * THINPREP PAP (12/27/2020 12:00 AM EDT) Clinical Information: None given [facility] COMMENT SEE COMMENT [facility] Comment: EXPLANATORY NOTE: The Pap is a screening test for cervical cancer. It is not a diagnostic test and is subject to false negative and false positive results. It is most reliable when a satisfactory sample, regularly obtained, is submitted with relevant clinical findings and history, and when the Pap result is evaluated along with historic and current clinical information. Engineering Manager Electronics: SEE COMMENT [facility] Comment: MXD, CT (ASCP) CT screening location: [place] [address] Interpretation/Res ult: SEE COMMENT [facility] Comment: Negative for intraepithelial lesion or malignancy. Atrophic pattern; predominantly parabasal cells LMP: NONE [facility]IVEN [facility] Prev. BX: NONE [facility]IV[facility] Prev. PAP: NONE [facility]IVEN [facility] SOURCE: None given [facility] Statement Of Adequacy: SATISFACTORY FOR EVALUATION [facility] 12/27/2020 us Tatiana Atwood NP LAB PATHOLOGY ORDERABLES Final Result Performing Organization Address City/[facility]/ZIP Co de Phone Number [facility] [address] * HPV mRNA E6/E7 (12/27/2020 12:00 AM EDT) HPV nRNA E6/E7 Not Detected Not Detected [facility] Comment: Methodology: International Marketing Manager-Mediated Amplification This assay detects E6/E7 viral messenger RNA (mRNA) from 14 high-risk HPV types (16,18,31,33,35,39,45,51,52,56,58,59,66,68). The analytical performance characteristics of this assay have been determined by [employer]. The modifications have not been cleared or approved by the FDA. This assay has been validated pursuant to the CLIA regulations and is used for clinical purposes. For additional information, please refer to http://education.Advanced TeleSensors.Chip Estimate/faq/MNY974b0 (This link if provided for information/ educational purposes only.) 12/27/2020 us Tatiana Atwood SLITTING MACHINE FEEDER LAB BLOOD ORDERABLES Final Resu lt [facility] [address] from Last 3 Months or Most Recently Relevant to Health Maintenance Insurance [employer]3 Care Teams Route Salesman Relationship Specialty Start Date End Date Name, MD Burton [address] [place] [address] PCP - General Internal Medicine 09/17/24 Marguerite Sharp RN [address] [place] [address] [place] [address] Registered Nurse Family Medicine 09/03/24 Jahaira Hwang 09/07/24
--- OUTSIDE RECORDS SUMMARY | 2024-12-08 14:54 | XMS_ITS | Encounter Summary ---
Author Organization [facility] Address [address] [facility] 7t [place] [address] Care Team Providers Care Cloth Hand Name Role Phone Marguerite Sharp RN Unavailable [phone] Jahaira Hwang Unavailable Name, Burton RODRIGUEZ Primary Care Provider Reason for Visit * Reason Comments Care Management C3CM- 1st f/u call l Encounter Details Date Type Department Care Team (Late st Contact Info) Description 12/06/2024 Patient Outreach [facility] [address] [place], [place] [phone] Name, MD Burton [address] [place] [address] Care Management (C3CM- 1st f/u call lvm) Social History Tobacco Use Types Packs/Day Years [...] AM EDT documented as of this encounter Progress Notes * Marguerite Sharp RN - 12/06/2024 10:21 AM EDT CM Marguerite Sharp RN placed outbound call to patient for follow up call. No answer at this time. LVM introducing herself from [facility] CM Department. Requested call back. CM reinforced direct contact information or CHW for any additional questions or concerns. Education provided on Walk-In Urgent Care located in [facility] of [facility]. Patient provided with after-hours line for [facility], , which offer night time triage service and option to transfer to oncall provider if needed. CM will attempt another follow up call within 10 days. documented in this encounter Plan of Treatment Upcoming Encounters Date Type Department Care Team ([facility] st Contact Info) Description 01/12/2025 2:00 PM EDT Office Visit [facility] OPTOMETRY [address] [place] [address] Tatiana Martin, OD [address] [place] [address] 02/25/2025 11:15 AM EST Office Visit [facility] [address] [place] [address] Name, MD Burton [address] [place] [phone] documented as of this encounter Visit Diagnoses Not on filedocumented in this encounter Additional Health Concerns Assessment Noted Time PHQ-9 Depression Total Score: 7 09/18/19 9:56 AM EDT documented as of this encounter Care Teams Cloth Hand Relationship Specialty Start Date End Date Name, MD Burton [address] [place] [address] PCP - General Internal Medicine 09/17/24 Marguerite Sharp RN [address] [place] [phone] Registered Nurse Family Medicine 09/03/24 Jahaira Hwang 09/07/24 documented as of this encounter
--- OUTSIDE RECORDS SUMMARY | 2024-12-08 14:55 | XMS_ITS | Clinical Summary ---
Author Organization [facility] Address [address] [place] [address] Care Team Providers Care Breaker Mechanic Name Role Phone ManceraCharity Vaughan NP Primary Care Provider [phone] Source Comments PLEASE NOTE, if this patient is a minor, it may be UNLAWFUL to discuss sensitive information that is contained in these records (such as FAMILY PLANNING, MENTAL HEALTH or SUBSTANCE ABUSE) with the minor patient's parent or other person without the patient's specific authorization.[facility] Allergies Active Allergy Reactions Criticality Noted Date Comments Aspirin 07/09/2021 Codeine 07/09/2021 Qafvybhgvfhp-Azn-Fhjzqkmjss hen 07/09/2021 Tylenol PM Diphenhydramine-Acetaminoph en 08/15/2022 [...] seen for diabetic exam:01/07/2023 Provider:Randall Arias MD NPI#:[id number] 1 Each 1 01/15/20 23 Active VASCEPA [...] current use of insulin ([facility]) TAKE 1 TABLET BY MOUTH ONCE DAILY [...] current use of insulin ([facility]) INJECT THE CONTENT OF 1 syringe SUBCUTANEOUSLY EACH WEEK 2 mL 2 06/10/19 Active loratadine (CLARITIN) 10 mg tablet Take 1 Tablet by mouth every morning. 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 Sees Dr. Acevedo. Last seen 11/2022 Diagnosed in January 2019 in [place] Received chemotherapy in [place]. Currently on oral medication Diagnosed in January 2019 in [place] Received chemotherapy in [place]. Currently on oral medication H/O right mastectomy 07/09/2021 Status post right breast reconstruction 07/10/19 Hyperlipidemia 07/09/2021 Cerebrovascular accident (CVA) ([facility]) 0 07/09/2021 Overview (12/04/2023): Reports x 2, first in 2018, she needed eye surgery due to hemmorhagic stroke it appears, then also in 2019 she had another on which occurred during the breast surgery. History of myocardial infarction 09/20/2020 Overview (11/04/2022): 2013, 2019 per prior medical record Immunizations Immunization Administration Dates Next Due Flu, [...] preservative free 12/13/1998 ZOSTER VACCINE, RECOMBINANT (SHINGRIX) ,10/03/2020 [...] 09/18/2023 09/17/2022, 09/13/2021, 09/13/2021, Additional history exists Llw-[id number]-15 ( season) 2023 01/21/2023, 05/02/2021, 06/28/2020 Colorectal [...] EST Routine general medical examination at a health care facility LIPID PANEL Routine 03/10/2024 11:21 AM EST Routine general medical examination [facility] MICROALBUMIN/CREATININE RATIO, URINE, RANDOM Routine 11/11/2023 10:11 AM EDT Type 2 diabetes mellitus without complication, without long-term current use of insulin ([facility]) HGBA1C W/MPG Routine 11/11/2023 10:11 AM EDT Type 2 diabetes mellitus without complication, without long-term current use of insulin ([facility]) COMP PERIODONTAL EVALUATION - NEW/EST PATIENT [...] HPV MRNA E6/E7 Not Detected Not Detected [facility] Comment: Methodology: Radio Engineering Teacher-Mediated Amplification This assay detects E6/E7 viral messenger RNA (mRNA) from 14 high-risk HPV types (16,18,31,33,35,39,45,51,52,56,58,59,66,68). Cervical sources are required for HPV testing. If a vaginal source from a patient who has had a total hysterectomy with removal of cervix was submitted, please contact the testing laboratory for alternative testing options. For additional information, please refer to http://education.Sentons/faq/GTC234d0 (This link if provided for information/ educational purposes only.) CLINICAL INFORMATION See Note [facility] Comment:Postmenopausal LMP See Note [facility] Comment:NONE GIVEN PREV. PAP See Note [facility] Comment:NONE GIVEN PREV. BX See Note [facility] Comment:NONE GIVEN SOURCE See Note [facility] Comment:Cervix STATEMENT OF ADEQUACY See Note [facility] Comment:SATISFACTORY FOR XIAO LUATION INTERPRETATION/RESU LT See Note [facility] Comment: Cytology Results: Negative for intraepithelial lesion or malignancy. Atrophic pattern; predominantly parabasal cells COMMENT See Note [facility] Comment: This Pap test has been evaluated with computer assisted technology. CLINICAL MATERIAL HANDLER See Note [employer] Comment: RK, CT(ASCP) CT screening location: [address] [address] COMMENT [facility] Swab Cervix uteri structure / Unknown 04/02/2024 1:57 PM EST 04/06/2024 2:48 AM EST Narrative [facility] - 04/09/2024 1:30 PM EST EXPLANATORY NOTE: [...] along with historic and current clinical information. Shiv Dennis MD LAB - PATHOLOGY AND CYTOLOGY AM BULATORY Final Result [facility] [address] [address], [facility] [place] [employer] [place] [address] * (ABNORMAL) LIPID PANEL (03/10/2024 11:21 AM EST) CHOLESTEROL, TOTAL 302(H) <200 mg/dL [facility] HDL CHOLESTEROL 37(L) > OR = 50 mg/dL [facility] TRIGLYCERIDES 454(H) <150 mg/dL [facility] Comment: If a non-fasting specimen was collected, consider repeat triglyceride testing on a fasting specimen if clinically indicated. Yemi et al. J. of Clin. Lipidol. 2015;9:129-169. LDL-CHOLESTEROL See Note [facility] Comment: LDL cholesterol not calculated. Triglyceride levels greater than 400 mg/dL invalidate calculated LDL results. Reference range: <100 Desirable range <100 mg/dL for primary prevention; <70 mg/dL for patients with CHD or diabetic patients with > or = 2 CHD risk factors. LDL-C is now calculated using the Oleksandr-Neal calculation, which is a validated novel method providing better accuracy than the Friedewald equation in the estimation of LDL-C. Oleksandr NASCIMENTO et al. WEN. 2013;310(19): 6041-1343 (http://education.Missionly/faq/XWR988) CHOL/HDLC RATIO 8.2(H) <5.0 (calc) [facility] NON-HDL CHOLESTEROL 265(H) <130 mg/dL (calc) [facility] Comment: Non-HDL level > or = 220 [...] AM EST 03/10/2024 11:22 AM EST Narrative [employer] [facility] - 03/11/2024 4:27 AM EST FASTING:NO us Charity Mancera NP LAB - BLOOD DRAW Final Resul t [facility] [address] [address], [facility] [address] [address] * (ABNORMAL) COMPREHENSIVE METABOLIC PANEL (03/10/2024 11:21 AM EST) GLUCOSE 179(H) 65 - 139 mg/dL [facility] Comment: Non-fasting reference interval UREA NITROGEN (BUN) 16 7 - 25 mg/dL [facility] CREATININE (blood) 0.81 0.50 - 1.03 mg/dL [employer] [facility] EGFR 86 > OR = 60 mL/min/1. 73m2 [employer] [facility] BUN/CREATININE RATIO SEE NOTE: [employer] [facility] Comment: Not Reported: BUN and Creatinine are within reference range. SODIUM 140 135 - 146 mmol/L [facility] POTASSIUM 4.2 3.5 - 5.3 mmol/L [employer] [facility] CHLORIDE 104 98 - 110 mmol/L [employer] [facility] CARBON DIOXIDE 26 20 - 32 mmol/L [facility] CALCIUM 9.8 8.6 - 10.4 mg/dL [employer] [facility] PROTEIN, TOTAL 7.3 6.1 - 8.1 g/dL [employer] [facility] ALBUMIN 4.5 3.6 - 5.1 g/dL [employer] [facility] GLOBULIN 2.8 1.9 - 3.7 g/dL (calc) [facility] ALBUMIN/GLOBULI N RATIO 1.6 1.0 - 2.5 (calc) [employer] [facility] BILIRUBIN, TOTAL 0.4 0.2 - 1.2 mg/dL [employer] [facility] ALKALINE PHOSPHATASE 79 37 - 153 U/L [facility] AST 18 10 - 35 U/L [facility] [employer] ALT 30(H) 6 - 29 U/L [facility] Blood Blood / Unknown 03/10/2024 1 1:21 AM EST 03/10/2024 11:22 AM EST Narrative [employer] [facility] [employer] - 03/11/2024 4:27 AM EST FASTING:NO Charity Mancera MOLD MACHINE OPERATOR LAB - BLOOD DRAW Final Resul t Performing Organization Address City/[facility]/ZIP Co de Phone Number [facility] [address] [address], [employer] [address] [address] * (ABNORMAL) HGBA1C W/MPG (11/11/2023 10:11 AM EDT) HEMOGLOBIN A1C 6.8(H) <5.7 % of total Hgb [facility] Comment: For someone without known diabetes, a [...] children. MEAN PLASMA GLUCOSE 165 mg/dL (calc) [facility] Blood Blood / Unknown 11/11/2023 1 0:11 AM EDT 11/11/2023 10:11 AM EDT Narrative [employer] [facility] - 11/12/2023 3:36 PM EDT FASTING:NO Christopher Swift PharmD LAB - BLOOD D RAW Edited Result - Final Performing Organization Address City/[facility]/ZIP Co de Phone Number [employer] [facility] [address] [address], [employer] [address] [address] * MICROALBUMIN/CREATININE RATIO, URINE, RANDOM (11/11/2023 10:11 AM EDT) CREATININE, RANDOM URINE 57 20 - 275 mg/dL [facility] MICROALBUMIN 1.5 mg/dL [employer] D [facility] Comment: Reference Range Not established MICROALBUMIN/CREA TININE RATIO, RANDOM URINE 26 <30 mg/g creat [facility] Comment: The ADA defines abnormalities in [...] AM EDT 11/11/2023 10:11 AM EDT Narrative [employer] [facility] - 11/12/2023 3:36 PM EDT FASTING:NO Christopher McguireD LAB URINE AMB ULATORY Final Result Performing Organization Address [facility]/ZIP Co de Phone Number [facility] [address] [address], [employer] [address] [phone] * FECAL GLOBIN BY IMMUNOCHEMISTRY (FIT) (01/21/2023 8:00 PM EDT) Pathologist [facility] FECAL GLOBIN BY IMMUNOCHEMISTRY See Note [facility] Comment: FECAL GLOBIN BY IMMUNOCHEMISTRY Micro Number: [id number] Test Status: Final Specimen Source: Insure (tm) fobt test card Specimen Quality: Adequate Fecal Globin: Not Detected Stool Stool specimen / Unknown 01/21/2023 8:00 PM EDT 01/23/2023 4:16 AM EDT Corin YIN LAB BODY FLUIDS AND STOOLS AMBU LATORY Final Result Performing Organization Address [facility]/ZIP Co de Phone Number [facility] [address] [address], [employer] [address] [phone] * HISTORIC DEXA SCAN (12/19/2022 3:00 AM EDT) 12/19/2022 3:00 AM EDT Result [facility] Negin Bell BENCH ASSEMBLER BATTERY-C IMG DXA Edited Resul t - Final * HISTORIC MAMMOGRAM (09/17/2022 3:00 AM EDT) 09/17/2022 3:00 AM EDT Result [facility] Negin Bell [employer]EN[employer]-C IMG MAMMO Final Result * REFERRAL TO OPHTHALMOLOGY (11/13/2021 3:00 AM EDT) 11/13/2021 3:00 AM EDT Result [facility] Negin Bell [employer]-C REFERRAL Final Result * HEPATITIS C AB W/RFLX HCV RNA, QT, RT PCR (07/10/2021 10:04 AM EDT) HEPATITIS C ANTIBODY NON-REACT KIARA NON-REACT KIARA [facility] SIGNAL TO CUT-OFF 0.01 <1.00 [facility] Comment: HCV antibody was non-reactive. There is no laboratory evidence of HCV infection. In most cases, no further action is required. However, if recent HCV exposure is suspected, a test for HCV RNA (test code 17100) is suggested. For additional information please refer to http://education.Lightonus.com.Tapad/faq/TBK60d3 (This link is being provided for informational/ educational purposes only.) Blood Blood / Unknown 07/10/2021 1 0:04 AM EDT 07/10/2021 10:05 AM EDT Narrative [facility] - 07/10/2021 9:47 PM EDT FASTING:YES Result [facility] Negin Danga [employer]TER[employer]-C LAB - BLOOD DRAW Final Resul t [employer] [facility] [address] [address], [facility] [address] [address] * HIV 1/2 AG & AB W/RFLX (4TH GEN) (07/10/2021 10:04 AM EDT) HIV AG/AB, 4TH GEN NON-REAC TIVE NON-REAC TIVE [facility] Comment: HIV-1 antigen and HIV-1/HIV-2 antibodies [...] purpose. For additional information please refer to http://education.Sentons/faq/HTQ044 (This link is being provided for informational/ educational purposes only.) The performance of this assay has not been clinically validated in patients less than 2 years old. Blood Blood / Unknown 07/10/2021 1 0:04 AM EDT 07/10/2021 10:05 AM EDT Narrative [employer] [facility] - 07/10/2021 9:47 PM EDT FASTING:YES Negin Bell [employer] AS[employer]TER[employer]-C LAB - BLOOD DRAW Final Resul t [facility] [address] [address], [facility] [address] [address] from Last 3 Months or Most Recently Relevant to Health Maintenance [place] [employer] [employer] [address] [employer] Care Teams Breaker Mechanic Relationship Specialty Start Date End Date Charity Mancera NP [address] [place] [address] PCP - General Internal Medicine 05/09/23
== END 2024-12-08 14:19 | disposition home or self-care (01) ==
LOC: HO.HGS 14:00
PROVIDERS: PCP Internal Medicine Geriatric Medicine; Visit Provider Surgery
DX: C50.919 Malignant neoplasm of unspecified site of unspecified female breast (principal)
CPT/HCPCS: 99213

== ENCOUNTER → 2024-12-08 13:59 | Outpatient (BNVA) | payer MEDICAID, SELFPAY | PROVIDERS: PCP Internal Medicine Geriatric Medicine; Visit Provider Surgery | DX: C50.911 Malignant neoplasm of unspecified site of right female breast (principal); Z17.1 Estrogen receptor negative status [ER-]; Z17.22 Progesterone receptor negative status; Z17.31 Human epidermal growth factor receptor 2 positive status; Z90.11 Acquired absence of right breast and nipple; Z79.620 Long term (current) use of immunosuppressive biologic | CPT/HCPCS: 99212 ==